=== PATIENT | male | born 1960 | race Hispanic/Latino ===

== ENCOUNTER 2017-08-08 16:45 | Inpatient (IN) | payer BC, OTHER ==
[2017-08-08 17:01] VITALS: BMI 23.4
--- NOTE | 2017-08-08 19:28 | C.PDOC ---
History Of Present Illness Patient is a 56 y/o male who presents to the ED with a complaint of nose pain s/ p falling and hitting face on pavement. Patient reports to have been on the way to medical center for swelling at his right mandibular angle mass; subsequently called an Uber when it took off without him fully inside of the vehicle. Upon the car abruptly stopping, patient fell and hit face. Patient denies any LOC, and reports remembering entire event. Patient is awake, alert, and oriented in ED. No other physical complaints at this time. Time Seen by Provider: 08/08/17 18:10 Chief Complaint (Nursing): Medical Clearance History Per: Patient History/Exam Limitations: no limitations Onset/Duration Of Symptoms: Mins Current Symptoms Are (Timing): Still Present Severity: Moderate Pain Scale Rating Of: 4 Recent travel outside of the [place]: No Past Medical History Reviewed: Historical Data, Nursing Documentation, Vital Signs Vital Signs: Last Vital Signs Temp 99.2 F 08/08/17 20:50 Pulse 118 H 08/08/17 20:50 Resp 16 08/08/17 20:50 BP 122/74 08/08/17 20:50 Pulse Ox 98 08/08/17 22:06 - Medical History PMH: No Chronic Diseases Surgical History: No Surg Hx Family History: States: No Known Family Hx - Social History Hx Tobacco Use: Yes (light smoker) Hx Alcohol Use: Yes Hx Substance Use: No - Immunization History Hx Tetanus Toxoid Vaccination: No Hx Influenza Vaccination: No Hx Pneumococcal Vaccination: No Review Of Systems Constitutional: Negative for: Fever, Chills Eyes: Positive for: Other (jaundiced sclera) ENT: Positive for: Nose Pain, Other (swelling at right mandibular angle mass) Cardiovascular: Negative for: Chest Pain Respiratory: Negative for: Shortness of Breath Gastrointestinal: Negative for: Abdominal Pain Genitourinary: Negative for: Dysuria Musculoskeletal: Negative for: Back Pain Skin: Positive for: Jaundice Neurological: Positive for: Other (denies LOC). Negative for: Weakness Psych: Negative for: Anxiety Physical Exam - Physical Exam Appears: Well, Non-toxic, No Acute Distress Skin: Warm, Dry, Jaundice Head: Normacephalic Eye(s): bilateral: Scleral Icterus Ear(s): Bilateral: Normal Nose: No Septal Hematoma, Other (some swelling over nasal bones with small abrasians) Oral Mucosa: Moist Lips: Normal Appearing Throat: Other (oropharynx clear) Neck: Supple, Other (4x7 soft mass and angle of right lower jaw extending towards larynx) Chest: Symmetrical Cardiovascular: Rhythm Regular, No Murmur Respiratory: No Decreased Breath Sounds, No Rales, No Rhonchi, No Wheezing Gastrointestinal/Abdominal: Soft, No Tenderness, No Distention Back: No CVA Tenderness Extremity: Normal ROM Extremity: Bilateral: Atraumatic Pulses: Left Dorsalis Pedis: Normal, Right Dorsalis Pedis: Normal Neurological/Psych: Oriented x3, Normal Speech, Normal Cognition Gait: Steady ED Course And Treatment - Laboratory Results Result Diagrams: 08/08/17 20:08 08/08/17 20:08 O2 Sat by Pulse Oximetry: 98 Pulse Ox Interpretation: Normal Progress Note: Head CT, neck CT, and blood work ordered. Adacel administered. Against Medical Advice - AMA Patient Left Against Medical Advice: The patient declines admission to the hospital and wishes to leave the Emergency Department. This action is against my medical advice. This decision was made with informed refusal. The patient was told that admission to the hospital is necessary. Explanation of the reasons why were discussed. The risks of leaving were explained to the patient and include, but are not limited to, worsening of known or currently unknown conditions, permanent disability and from undiagnosed or untreated conditions. The patient has the capacity to make this informed decision and understands my explanation of the current medical problem and risks of leaving. The patient voluntarily accepts these risks and signed an AMA form documenting our conversation. The patient was given the opportunity to ask questions and reconsider. The patient was encouraged to return to the Emergency Department at any time for further care. Disposition Counseled Patient/Family Regarding: Studies Performed, Diagnosis, Need For Followup - Disposition Disposition: AGAINST MEDICAL ADVICE Disposition Time: 19:28 Condition: FAIR Instructions: Abrasion (ED), Jaundice (ED), Alcohol Use Disorder (ED) Forms: Fl[employer] ([employer]) - Clinical Impression Clinical Impression: Fall, Nasal abrasion, Jaundice, Alcohol use disorder - Scribe Statement The provider has reviewed the documentation as recorded by the Scribe Nighat Grier All medical record entries made by the Scribe were at my direction and personally dictated by me. I have reviewed the chart and agree that the record accurately reflects my personal performance of the history, physical exam, medical decision making, and the department course for this patient. I have also personally directed, reviewed, and agree with the discharge instructions and disposition.
[2017-08-08] MEDS ORDERED: Tdap Vaccine 0.5 ml Vial (10-64 yrs) IM ONE ×2 (19:39→23:25)
[2017-08-08 20:11] LABS: BASO # 0.1 K/uL (0.0-0.2); BASO % 0.5 % (0.0-2.0); EOS % 0.2 % (0.0-4.0); HEMOGLOBIN 12.3 g/dL (12.0-18.0); LYMPH % 9.3 % (20.0-40.0); MEAN CORPUSCULAR HEMOGLOBIN 35.8 pg (27.0-31.0); MEAN CORPUSCULAR HGB CONC 35.4 g/dL (33.0-37.0); MEAN PLATELET VOLUME 7.8 fL (7.2-11.7); MONO # 0.7 K/uL (0.0-0.8); MONO % 6.5 % (0.0-10.0); NEUT # 9.3 K/uL (1.8-7.0); NEUT % 83.5 % (50.0-75.0); PLATELET COUNT 80 K/uL (130-400); RBC 3.43 Mil/uL (4.40-5.90); RED CELL DISTRIBUTION WIDTH 17.1 % (11.5-14.5); WHITE BLOOD COUNT 11.1 K/uL (4.8-10.8)
[2017-08-08 20:21] LABS: INR 1.6
[2017-08-08 20:31] LABS: ALB/GLOB RATIO 0.6 (1.0-2.1); ALBUMIN 3.6 g/dL (3.5-5.0); ALT/SGPT 85 U/L (21-72); AST/SGOT 462 U/L (17-59); BLOOD UREA NITROGEN 8 mg/dL (9-20); CALCIUM 8.2 mg/dl (8.6-10.4); GFR AFRICAN-AMERICAN > 60; GFR NON-AFRICAN AMERICAN > 60
[2017-08-08] MEDS ORDERED: Iodixanol 320 MG/ML 100 ML BOTTLE IV ONE (21:10)
--- NOTE | 2017-08-08 22:18 | CT ---
EXAM: CT Head Without Intravenous Contrast EXAM DATE/TIME: 08/08/2017 7:40 PM CLINICAL HISTORY: 56 years old, male; Injury or trauma; Fall; Initial encounter; Abrasion; Face; Additional info: R/O bleed TECHNIQUE: Axial computed tomography images of the head/brain without intravenous contrast. All CT scans at this facility use one or more dose reduction techniques, viz.: automated exposure control; ma/kV adjustment per patient size (including targeted exams where dose is matched to indication; i.e. head); or iterative reconstruction technique. COMPARISON: No relevant prior studies available. FINDINGS: Atrophy. Incidentally noted is septum cavum pellucidum. There is decreased attenuation in the periventricular white matter consistent with chronic small vessel ischemic disease. No intracranial hemorrhage. No extra axial collections. No intracranial edema. No fluid in the sinuses or mastoid air cells. No depressed fractures. IMPRESSION: No acute intracranial injury.
[2017-08-08] MEDS ORDERED: Bacitracin 500 Units/gm Oint Foilpak UD ONE (22:19)
--- NOTE | 2017-08-08 22:39 | CT ---
EXAM: CT Neck With Intravenous Contrast EXAM DATE/TIME: 08/08/2017 7:39 PM CLINICAL HISTORY: 56 years old, male; Signs and symptoms; Mass, lump, or swelling in neck; Additional info: R mandibular, neck mass TECHNIQUE: Axial computed tomography images of the neck with intravenous contrast. All CT scans at this facility use one or more dose reduction techniques, viz.: automated exposure control; ma/kV adjustment per patient size (including targeted exams where dose is matched to indication; i.e. head); or iterative reconstruction technique. Coronal and sagittal reformatted images were created and reviewed. CONTRAST: 100 mL of [id number] administered intravenously. COMPARISON: No relevant prior studies available. FINDINGS: There is asymmetry of the parotid glands being more prominent on the right. The enlargement may be due to acute infectious/inflammatory process/parotidtitis although I would expect more stranding in the surrounding fat with an inflammatory process that would produce this degree of asymmetry. Thus followup is recommended to ensure resolution. There is no definite parotid mass identified although portions of the gland are obscured by artifact from the patient's dental hardware. Stranding within the subcutaneous fat of the right submandibular region with slight thickening of the adjacent fascia. Findings suggest infectious/inflammatory process/cellulitis.. The stranding abuts the right submandibular gland suggesting possible mild involvement of the gland as well although there is no definite enlargement or heterogeneity identified. The airway is patent. The sinuses and mastoid air cells are clear. The visualized portions of the upper lungs are clear. Calcification at the carotid artery bifurcations bilaterally. Degenerative changes with osteophyte formation and articular facet joint hypertrophy. IMPRESSION: Cellulitis in the right submandibular region. Enlargement of the right parotid gland with respect to the left most likely due to parotiditis however please see discussion above. The enlargement is out of proportion to the surrounding inflammation and portions of the gland are obscured by artifact followup, thus followup is recommended to ensure resolution.
[2017-08-08 23:25] LABS: PLATELET ESTIMATE NORMAL (NORMAL)
[2017-08-08 23:27] LABS: BANDS 5 % (0-2); LYMPHOCYTE 10 % (20-40); MONOCYTE 7 % (0-10); NEUTROPHIL 78 % (50-75); TOTAL CELLS COUNTED 100
[2017-08-08 23:28] LABS: ANISOCYTOSIS SLIGHT; HYPERSEGMENTATION PRESENT; LARGE PLATELETS PRESENT; POIKILOCYTOSIS SLIGHT
[2017-08-09 03:17] LABS: HEPATITIS B SURFACE AG Negative (NEGATIVE)
[2017-08-09 03:23] LABS: HEPATITIS A IGM NEGATIVE (NEGATIVE); HEPATITIS B CORE AB NEGATIVE (NEGATIVE)
[2017-08-09 03:35] LABS: HEPATITIS C ANTIBODY NEGATIVE (NEGATIVE)
[2017-08-09] MEDS ORDERED: Iodixanol 320 MG/ML 100 ML BOTTLE IV ONE (07:47)
[2017-08-09] MEDS: Pantoprazole 40 mg EC Tab PO SCH (09:14)
[2017-08-09] MEDS ORDERED: Pantoprazole 40 mg EC Tab PO ONE (09:14)
--- NOTE | 2017-08-09 09:26 | CT ---
CT abdomen and pelvis with IV contrast Indication: Jaundice Technique: Contiguous axial images of the abdomen and pelvis. Coronal and Sagittal reformats generated and reviewed. Contrast: Oral contrast was not administered. 100 mL of Visipaque IV was administered. This CT exam was performed using 1 or more of the following dose reduction techniques: Automated exposure control, adjustment of the MAA and/or kV according to patient size, and/or use of iterative reconstruction technique. Radiation dose: Total exam DLP = 542.14 MGy-cm. Comparison: None available. Findings: Small bilateral pleural effusions. No visible pneumothorax. Nodular hepatic contour. Heterogeneous hepatic parenchyma. Fatty atrophy of the pancreas. Distended gallbladder. Question small sludge or gallstones at the dependent portion of the gallbladder (series 3, image 71). The kidneys enhance symmetrically. No hydronephrosis or obstructing calculus identified. The adrenal glands appear unremarkable. The spleen appears unremarkable. Splenic varices. Small to moderate abdominal and pelvic ascites. The stomach is nondistended. The bowel loops appear within normal limits of caliber without evidence of intestinal obstruction. There is no definite free air. IV contrast within the urinary bladder which appears otherwise unremarkable. Small fluid within a right inguinal hernia. Fat containing left inguinal hernia. Degenerative changes. Impression: Small bilateral pleural effusions. Nodular hepatic contour. Markedly heterogeneous hepatic parenchyma. Splenic varices. Appearance compatible with cirrhosis. Distended gallbladder. Question small sludge or gallstones at the dependent portion of the gallbladder. Correlate clinically. Gallbladder ultrasound may be considered if indicated. Small to moderate abdominal and pelvic ascites. Small fluid within a right inguinal hernia. Fat containing left inguinal hernia. Additional findings as above.
[2017-08-09] MEDS: Sodium Chloride 0.9% 1,000 ML IV SCH ×2 (13:54→22:30)
[2017-08-09] MEDS: Piperacill/Tazo 3.375gm in Dex 3.375 GM/50 ML BAG IVPB SCH ×2 (14:03→17:41)
[2017-08-09 14:05] LABS: IRON 63 ug/dL (49-181)
[2017-08-09 14:30] LABS: % IRON SATURATION 46 (20-55); TOTAL IRON BINDING CAPACITY 138 ug/dL (250-450)
[2017-08-09] MEDS ORDERED: Pneumococcal 23-Valent Vaccine IM ONE (14:57)
--- NOTE | 2017-08-09 16:06 | CP.PCM.CON ---
<Kailey Cortés - Last Filed: 08/09/17 15:58> History of Present Illness - History of Present Illness History of Present Illness: GI Fellow PGY4 Consult Note This is a 56yM with pmhx of alcohol abuse presenting with jaundice and right jaw swelling. Pt reports his sister noticed he was turning yellow a few days ago and it was getting worse and he was having swelling in his right neck/jaw line so he decided to come to the ER. Pt reports he has never been admitted for GI bleed, jaundice, HE, ascites, only one admission 2yrs ago for alcohol intoxication. Pt drinks beer and hard liquor daily for many years, denies IVDA or hepatitis in the past. Pt's last drink was 2 days priro to ER vissit. Blood etoh level was 205 and Tbili 13. Pt denies any prior dx of cirrhosis. GI was consulted for jaundice and cirrhosis. Pt was also found to have Right submandibular cellulites. Pt's sister is his verbal POA who is also an Endo Nurse at [employer], case was discussed with her as she was present at bedside. No prior hx of EGD or colonoscopy. ROS: A 12pt ROS was negative except as above PmHx: As stated in HPI PsHx: Denies SHx: Etoh abuse, denies tobacco or drugs FHx: Denies colon ca Past Patient History - Past Medical History & Family History Past Medical History?: No - Past Social History Smoking Status: Never Smoked - MUSCULOSKELETAL/RHEUMATOLOGICAL Hx Falls: No - PSYCHIATRIC Hx Substance Use: No - SURGICAL HISTORY Hx Surgeries: No - ANESTHESIA Hx Anesthesia: No Meds Allergies/Adverse Reactions: Allergies Allergy/AdvReac Type Severity Reaction Status Date / Time No Known Allergies Allergy Verified 08/08/17 17:00 - Medications Medications: Current Medications Furosemide (Lasix) 40 mg PO DAILY [facility] Piperacillin Sod/Tazobactam Sod (Zosyn 3.375 Gm Iv Premix) 3.375 gm in 50 mls @ 100 mls/hr IVPB Q6H [facility] Stop: 08/09/17 18:59 Last Admin: 08/09/17 14:03 Dose: 100 mls/hr Sodium Chloride (Sodium Chloride 0.9%) 1,000 mls @ 100 mls/hr IV .Q10H [facility] Last Admin: 08/09/17 13:54 Dose: 100 mls/hr Piperacillin Sod/Tazobactam (Sod 3.375 gm/ Sodium Chloride) 100 mls @ 200 mls/ hr IVPB Q6H [facility] Pantoprazole Sodium (Protonix Ec Tab) 40 mg PO DAILY [facility] Last Admin: 08/09/17 09:14 Dose: 40 mg Spironolactone (Aldactone) 100 mg PO DAILY [facility] Physical Exam - Constitutional Appears: Non-toxic, No Acute Distress - Head Exam Head Exam: ATRAUMATIC, NORMAL INSPECTION, NORMOCEPHALIC - Eye Exam Eye Exam: EOMI, PERRL, Scleral icterus Pupil Exam: PERRL - ENT Exam ENT Exam: Mucous Membranes Moist, Normal Exam - Neck Exam Additional comments: right submandibular swelling - Respiratory Exam Respiratory Exam: Clear to Auscultation Bilateral, NORMAL BREATHING PATTERN - Cardiovascular Exam Cardiovascular Exam: REGULAR RHYTHM - GI/Abdominal Exam GI & Abdominal Exam: Normal Bowel Sounds, Soft. absent: Distended, Guarding, Organomegaly - Extremities Exam Extremities exam: Positive for: full ROM, normal inspection, pedal edema - Psychiatric Exam Psychiatric exam: Normal Affect, Normal Mood - Skin Skin Exam: Dry, Intact, Warm Additional comments: Jaundice Results - Vital Signs Recent Vital Signs: Last Vital Signs Temp 98.7 F 08/09/17 09:15 Pulse 82 08/09/17 09:15 Resp 18 08/09/17 09:15 BP 112/70 08/09/17 09:15 Pulse Ox 98 08/09/17 09:15 - Labs Result Diagrams: 08/08/17 20:08 08/08/17 20:08 Labs: Laboratory Results - last 24 hr 08/08/17 08/08/17 08/08/17 20:08 20:08 20:08 WBC 11.1 H RBC 3.43 L Hgb 12.3 Hct 34.6 L MCV 101.0 H MCH 35.8 H MCHC 35.4 RDW 17.1 H Plt Count 80 L MPV 7.8 Neut % (Auto) 83.5 H Lymph % (Auto) 9.3 L [place] % (Auto) 6.5 Eos % (Auto) 0.2 Baso % (Auto) 0.5 Neut # (Auto) 9.3 H Lymph # (Auto) 1.0 [place] # (Auto) 0.7 Eos # (Auto) 0.0 Baso # (Auto) 0.1 Neutrophils % (Manual) 78 H Band Neutrophils % 5 H Lymphocytes % (Manual) 10 L Monocytes % (Manual) 7 Hypersegmented Polys Present Platelet Estimate Normal Large Platelets Present Poikilocytosis (manual Slight Anisocytosis (manual) Slight PT 18.0 H INR 1.6 Sodium 135 Potassium 3.5 L Chloride 96 L Carbon Dioxide 25 Anion Gap 17 BUN 8 L Creatinine 0.7 L Est GFR ( Amer) > 60 Est GFR (Non-Af Amer) > 60 Random Glucose 113 H Calcium 8.2 L Iron TIBC % Saturation Ferritin Total Bilirubin 13.0 H AST 462 H ALT 85 H Alkaline Phosphatase 289 H Total Protein 9.3 H Albumin 3.6 Globulin 5.7 H Albumin/Globulin Ratio 0.6 L Alcohol, Quantitative Hepatitis A IgM Ab Hep Bs Antigen Hep B Core IgM Ab Hepatitis C Antibody 08/08/17 08/09/17 08/09/17 22:14 02:34 13:50 WBC RBC Hgb Hct MCV MCH MCHC RDW Plt Count MPV Neut % (Auto) Lymph % (Auto) [place] % (Auto) Eos % (Auto) Baso % (Auto) Neut # (Auto) Lymph # (Auto) [place] # (Auto) Eos # (Auto) Baso # (Auto) Neutrophils % (Manual) Band Neutrophils % Lymphocytes % (Manual) Monocytes % (Manual) Hypersegmented Polys Platelet Estimate Large Platelets Poikilocytosis (manual Anisocytosis (manual) PT INR Sodium Potassium Chloride Carbon Dioxide Anion Gap BUN Creatinine Est GFR ( Amer) Est GFR (Non-Af Amer) Random Glucose Calcium Iron 63 TIBC 138 L % Saturation 46 Ferritin Total Bilirubin AST ALT Alkaline Phosphatase Total Protein Albumin Globulin Albumin/Globulin Ratio Alcohol, Quantitative 205 H Hepatitis A IgM Ab Negative Hep Bs Antigen Negative Hep B Core IgM Ab Negative Hepatitis C Antibody Negative 08/09/17 08/09/17 13:50 13:50 WBC RBC Hgb Hct MCV MCH MCHC RDW Plt Count MPV Neut % (Auto) Lymph % (Auto) [place] % (Auto) Eos % (Auto) Baso % (Auto) Neut # (Auto) Lymph # (Auto) [place] # (Auto) Eos # (Auto) Baso # (Auto) Neutrophils % (Manual) Band Neutrophils % Lymphocytes % (Manual) Monocytes % (Manual) Hypersegmented Polys Platelet Estimate Large Platelets Poikilocytosis (manual Anisocytosis (manual) PT INR Sodium Potassium Chloride Carbon Dioxide Anion Gap BUN Creatinine Est GFR ( Amer) Est GFR (Non-Af Amer) Random Glucose Calcium Iron TIBC % Saturation 46 Ferritin 2190.0 Total Bilirubin AST ALT Alkaline Phosphatase Total Protein Albumin Globulin Albumin/Globulin Ratio Alcohol, Quantitative Hepatitis A IgM Ab Hep Bs Antigen Hep B Core IgM Ab Hepatitis C Antibody Assessment & Plan - Assessment and Plan (Free Text) Assessment: This is a 56yM with hx of etoh abuse presenting for jaundice and right neck swelling. 1. Decompensated Cirrhosis with jaundice MELD 22 2. Alcoholic Hepatitis DF 39.7 3. Submandibular Cellulitis 4. Elevated LFTs 5. Pancytopenia Plan: -Continue supportive care -Cirrhosis on CT imaging, no HCC -LE edema, start lasix 40mg and aldactone 100mg -MELD 22, will call [facility] for possible transfer for alcoholic hepatitis -Will need EGD on Friday for variceal screening -Elevated LFTs due etoh, hep neg, will order autoimmune serologies for completion -Monitor and trend labs daily -Alcoholic hepatitis with elevated DF but cannot start steroids due to infection with cellulites -IVF hydration -High protein diet, low salt -Alcohol cessation -IV abx for cellulites, recommend ID c/s and surgical elevation <Michelle Plata MD - Last Filed: 08/09/17 16:40> Meds - Medications Medications: Current Medications Furosemide (Lasix) 40 mg PO DAILY [facility] Piperacillin Sod/Tazobactam Sod (Zosyn 3.375 Gm Iv Premix) 3.375 gm in 50 mls @ 100 mls/hr IVPB Q6H [facility] Stop: 08/09/17 18:59 Last Admin: 08/09/17 14:03 Dose: 100 mls/hr Sodium Chloride (Sodium Chloride 0.9%) 1,000 mls @ 100 mls/hr IV .Q10H [facility] Last Admin: 08/09/17 13:54 Dose: 100 mls/hr Piperacillin Sod/Tazobactam (Sod 3.375 gm/ Sodium Chloride) 100 mls @ 200 mls/ hr IVPB Q6H [facility] Pantoprazole Sodium (Protonix Ec Tab) 40 mg PO DAILY [facility] Last Admin: 08/09/17 09:14 Dose: 40 mg Spironolactone (Aldactone) 100 mg PO DAILY [facility] Results - Vital Signs Recent Vital Signs: Last Vital Signs Temp 98.7 F 08/09/17 09:15 Pulse 82 08/09/17 09:15 Resp 18 08/09/17 09:15 BP 112/70 08/09/17 09:15 Pulse Ox 98 08/09/17 09:15 - Labs Result Diagrams: 08/08/17 20:08 08/08/17 20:08 Labs: Laboratory Results - last 24 hr 08/08/17 08/08/17 08/08/17 20:08 20:08 20:08 WBC 11.1 H RBC 3.43 L Hgb 12.3 Hct 34.6 L MCV 101.0 H MCH 35.8 H MCHC 35.4 RDW 17.1 H Plt Count 80 L MPV 7.8 Neut % (Auto) 83.5 H Lymph % (Auto) 9.3 L [place] % (Auto) 6.5 Eos % (Auto) 0.2 Baso % (Auto) 0.5 Neut # (Auto) 9.3 H Lymph # (Auto) 1.0 [place] # (Auto) 0.7 Eos # (Auto) 0.0 Baso # (Auto) 0.1 Neutrophils % (Manual) 78 H Band Neutrophils % 5 H Lymphocytes % (Manual) 10 L Monocytes % (Manual) 7 Hypersegmented Polys Present Platelet Estimate Normal Large Platelets Present Poikilocytosis (manual Slight Anisocytosis (manual) Slight PT 18.0 H INR 1.6 Sodium 135 Potassium 3.5 L Chloride 96 L Carbon Dioxide 25 Anion Gap 17 BUN 8 L Creatinine 0.7 L Est GFR ( Amer) > 60 Est GFR (Non-Af Amer) > 60 Random Glucose 113 H Calcium 8.2 L Iron TIBC % Saturation Ferritin Total Bilirubin 13.0 H AST 462 H ALT 85 H Alkaline Phosphatase 289 H Total Protein 9.3 H Albumin 3.6 Globulin 5.7 H Albumin/Globulin Ratio 0.6 L Alcohol, Quantitative Hepatitis A IgM Ab Hep Bs Antigen Hep B Core IgM Ab Hepatitis C Antibody 08/08/17 08/09/17 08/09/17 22:14 02:34 13:50 WBC RBC Hgb Hct MCV MCH MCHC RDW Plt Count MPV Neut % (Auto) Lymph % (Auto) [place] % (Auto) Eos % (Auto) Baso % (Auto) Neut # (Auto) Lymph # (Auto) [place] # (Auto) Eos # (Auto) Baso # (Auto) Neutrophils % (Manual) Band Neutrophils % Lymphocytes % (Manual) Monocytes % (Manual) Hypersegmented Polys Platelet Estimate Large Platelets Poikilocytosis (manual Anisocytosis (manual) PT INR Sodium Potassium Chloride Carbon Dioxide Anion Gap BUN Creatinine Est GFR ( Amer) Est GFR (Non-Af Amer) Random Glucose Calcium Iron 63 TIBC 138 L % Saturation 46 Ferritin Total Bilirubin AST ALT Alkaline Phosphatase Total Protein Albumin Globulin Albumin/Globulin Ratio Alcohol, Quantitative 205 H Hepatitis A IgM Ab Negative Hep Bs Antigen Negative Hep B Core IgM Ab Negative Hepatitis C Antibody Negative 08/09/17 08/09/17 13:50 13:50 WBC RBC Hgb Hct MCV MCH MCHC RDW Plt Count MPV Neut % (Auto) Lymph % (Auto) [place] % (Auto) Eos % (Auto) Baso % (Auto) Neut # (Auto) Lymph # (Auto) [place] # (Auto) Eos # (Auto) Baso # (Auto) Neutrophils % (Manual) Band Neutrophils % Lymphocytes % (Manual) Monocytes % (Manual) Hypersegmented Polys Platelet Estimate Large Platelets Poikilocytosis (manual Anisocytosis (manual) PT INR Sodium Potassium Chloride Carbon Dioxide Anion Gap BUN Creatinine Est GFR ( Amer) Est GFR (Non-Af Amer) Random Glucose Calcium Iron TIBC % Saturation 46 Ferritin 2190.0 Total Bilirubin AST ALT Alkaline Phosphatase Total Protein Albumin Globulin Albumin/Globulin Ratio Alcohol, Quantitative Hepatitis A IgM Ab Hep Bs Antigen Hep B Core IgM Ab Hepatitis C Antibody Attending/Attestation - Attestation I have personally seen and examined this patient.: Yes I have fully participated in the care of the patient.: Yes I have reviewed all pertinent clinical information: Yes Notes (Text): 08/09/17 16:35 Patient seen earlier today. This is a 56 yr old M with history of ETOH abuse presenting for jaundice and right neck swelling in setting of acute on chronic liver disease with acute alcoholic hepatitis and alcoholic cirrhosis. Patient has been drinking daily vodka and gin for past 2 years. His current MELD is 22, with DF 0f 39.7. He denies previous hospitalization, HE, word finding difficulty, sleep wake reversal or GI bleed. He denies gum bleeding or easy bruising. Left neck swelling due to cellulitis. Plan as follows Plan: - Steroid for alcoholic hepatitis contraindicated due to left nexk cellulitis - High protein high caloric diet -Continue supportive care -Cirrhosis on CT imaging, no HCC -LE edema- start lasix 40mg and aldactone 100mg -Will need EGD on Friday for variceal screening -Hepatitis serologies are negative -Monitor and trend labs daily -Alcohol cessation reiterated - [facility] transfer will be tried -IV abx for cellulites, recommend ID and surgical evaluation
[2017-08-09] MEDS ORDERED: Influenza Vaccine 60 mcg/0.5 mL SYR (4YR UP) IM ONE (18:00)
--- NOTE | 2017-08-09 18:10 | CP.PCM.HP ---
History of Present Illness - History of Present Illness History of Present Illness: 56 YEARS OLD W/M WITH NO MEDICAL F/U ADMITTED HER SISTER WHOSE IS RN IN NOTICED YELLOW EYSE AND R. PAROTID SWELLING . NO N/V BLACK STOOLS . FATIGUE AND TIRED IN ER , BILIRUBIN WAS 13 WITH MILD LFT ELEVATION R. PAROTID GLAND SWOLLEN WITH CELLULITIS PT ADMITTED FOR FURTHER TREATMENT Present on Admission - Present on Admission Any Indicators Present on Admission: No Review of Systems - Constitutional Constitutional: absent: As Per HPI, Anorexia, Chills, Daytime Sleepiness, Excessive Sweating, Fatigue, Fever, Frequent Falls, Headache, Increased Appetite , Lethargy, Malaise, Night Sweats, Snoring, Sleep Apnea, Weight Gain, Weight Loss, Weakness, Other - EENT Eyes: absent: As Per HPI, Blind Spots, Blurred Vision, Change in Vision, Decreased Night Vision, Diplopia, Discharge, Dry Eye, Exophthalmos, Floaters, Irritation, Itchy Eyes, Loss of Peripheral Vision, Pain, Photophobia, Requires Corrective Lenses, Sees Flashes, Spots in Vision, Tunnel Vision, Other Visual Disturbances, Loss of Vision, Other Ears: absent: As Per HPI, Decreased Hearing, Ear Discharge, Ear Pain, Tinnitus, Abnormal Hearing, Disequilibrium, Dizziness, Other Nose/Mouth/Throat: absent: As Per HPI, Epistaxis, Nasal Congestion, Nasal Discharge, Nasal Obstruction, Nasal Trauma, Nose Pain, Post Nasal Drip, Sinus Pain, Sinus Pressure, Bleeding Gums, Change in Voice, Dental Pain, Dry Mouth, Dysphagia, Halitosis, Hoarsness, Lip Swelling, Mouth Lesions, Mouth Pain, Odynophagia, Sore Throat, Throat Swelling, Tongue Swelling, Facial Pain, Neck Pain, Neck Mass, Other - Cardiovascular Cardiovascular: absent: As Per HPI, Acrocyanosis, Chest Pain, Chest Pain at Rest , Chest Pain with Activity, Claudication, Diaphoresis, Dyspnea, Dyspnea on Exertion, Edema, Irregular Heart Rhythm, Pain Radiating to Arm/Neck/Jaw, Leg Edema, Leg Ulcers, Lightheadedness, Orthopnea, Palpitations, Paroxysmal Nocturnal Dyspnea, Pedal Edema, Radiating Pain, Rapid Heart Rate, Slow Heart Rate, Syncope, Other - Gastrointestinal Gastrointestinal: absent: As Per HPI, Abdominal Pain, Belching, Bloating, Change in Bowel Habits, Change in Stool Character, Coffee Ground Emesis, Constipation, Cramping, Diarrhea, Dyspepsia, Dysphagia, Early Satiety, Excessive Flatus, Fecal Incontinence, Heartburn, Hematemesis, Hematochezia, Loose Stools, Melena, Nausea, Odynophagia, Temesmus, Vomiting, Other - Musculoskeletal Musculoskeletal: absent: As Per HPI, Abnormal Gait, Arthralgias, Atrophy, Back Pain, Deformity, Joint Swelling, Limited Range of Motion, Loss of Height, Muscle Cramps, Muscle Weakness, Myalgias, Neck Pain, Numbness, Radiating Pain into Limb, Stiffness, Tingling, Other - Neurological Neurological: absent: As Per HPI, Abnormal Gait, Abnormal Hearing, Abnormal Movements, Abnormal Speech, Behavioral Changes, Burning Sensations, Confusion, Convulsions, Disequilibrium, Dizziness, Numbness, Focal Weakness, Frequent Falls , Headaches, Lack of Coordination, Loss of Vision, Memory Loss, Paresthesias, Radicular Pain, Restless Legs, Sensory Deficit, Syncope, Tingling, Tremor, Vertigo, Weakness, Other Visual Disturbances, Other - Endocrine Endocrine: absent: As Per HPI, Change in Body Appearance, Change in Libido, Cold Intolorance, Deepening of Voice, Excessive Sweating, Fatigue, Flushing, Heat Intolorance, Increase in Ring/Shoe/Hat Size, Palpitations, Polydipsia, Polyphagia, Polyuria, Other Past Patient History - Past Medical History & Family History Past Medical History?: No - Past Social History Smoking Status: Never Smoked - MUSCULOSKELETAL/RHEUMATOLOGICAL Hx Falls: No - PSYCHIATRIC Hx Substance Use: No - SURGICAL HISTORY Hx Surgeries: No - ANESTHESIA Hx Anesthesia: No Meds Allergies/Adverse Reactions: Allergies Allergy/AdvReac Type Severity Reaction Status Date / Time No Known Allergies Allergy Verified 08/08/17 17:00 Physical Exam - Constitutional Appears: Well - Head Exam Head Exam: ATRAUMATIC, NORMAL INSPECTION, NORMOCEPHALIC - Eye Exam Eye Exam: Scleral icterus Pupil Exam: NORMAL ACCOMODATION, PERRL - ENT Exam Additional comments: BOTH PAROTIDS ARE SWOLLEN . R. IS LARGER AND TENDER TO TOUCH - Neck Exam Neck exam: Positive for: Full Rom - Respiratory Exam Respiratory Exam: Clear to Auscultation Bilateral, NORMAL BREATHING PATTERN - Cardiovascular Exam Cardiovascular Exam: REGULAR RHYTHM - GI/Abdominal Exam GI & Abdominal Exam: Normal Bowel Sounds, Soft. absent: Tenderness - Back Exam Back exam: NORMAL INSPECTION. absent: CVA tenderness (L), CVA tenderness (R) - Neurological Exam Neurological exam: Alert, CN II-XII Intact, Normal Gait, Oriented x3, Reflexes Normal Additional comments: NO FLAPS Results - Vital Signs Recent Vital Signs: Last Vital Signs Temp 98.2 F 08/09/17 10:50 Pulse 80 08/09/17 10:50 Resp 18 08/09/17 10:50 BP 112/65 08/09/17 17:41 Pulse Ox 99 08/09/17 10:50 - Labs Result Diagrams: 08/10/17 08:18 08/10/17 08:18 Labs: Laboratory Results - last 24 hr 08/08/17 08/08/17 08/08/17 20:08 20:08 20:08 WBC 11.1 H RBC 3.43 L Hgb 12.3 Hct 34.6 L MCV 101.0 H MCH 35.8 H MCHC 35.4 RDW 17.1 H Plt Count 80 L MPV 7.8 Neut % (Auto) 83.5 H Lymph % (Auto) 9.3 L [place] % (Auto) 6.5 Eos % (Auto) 0.2 Baso % (Auto) 0.5 Neut # (Auto) 9.3 H Lymph # (Auto) 1.0 [place] # (Auto) 0.7 Eos # (Auto) 0.0 Baso # (Auto) 0.1 Neutrophils % (Manual) 78 H Band Neutrophils % 5 H Lymphocytes % (Manual) 10 L Monocytes % (Manual) 7 Hypersegmented Polys Present Platelet Estimate Normal Large Platelets Present Poikilocytosis (manual Slight Anisocytosis (manual) Slight PT 18.0 H INR 1.6 Sodium 135 Potassium 3.5 L Chloride 96 L Carbon Dioxide 25 Anion Gap 17 BUN 8 L Creatinine 0.7 L Est GFR ( Amer) > 60 Est GFR (Non-Af Amer) > 60 Random Glucose 113 H Calcium 8.2 L Iron TIBC % Saturation Ferritin Total Bilirubin 13.0 H AST 462 H ALT 85 H Alkaline Phosphatase 289 H Total Protein 9.3 H Albumin 3.6 Globulin 5.7 H Albumin/Globulin Ratio 0.6 L Alcohol, Quantitative Hepatitis A IgM Ab Hep Bs Antigen Hep B Core IgM Ab Hepatitis C Antibody 08/08/17 08/09/17 08/09/17 22:14 02:34 13:50 WBC RBC Hgb Hct MCV MCH MCHC RDW Plt Count MPV Neut % (Auto) Lymph % (Auto) [place] % (Auto) Eos % (Auto) Baso % (Auto) Neut # (Auto) Lymph # (Auto) [place] # (Auto) Eos # (Auto) Baso # (Auto) Neutrophils % (Manual) Band Neutrophils % Lymphocytes % (Manual) Monocytes % (Manual) Hypersegmented Polys Platelet Estimate Large Platelets Poikilocytosis (manual Anisocytosis (manual) PT INR Sodium Potassium Chloride Carbon Dioxide Anion Gap BUN Creatinine Est GFR ( Amer) Est GFR (Non-Af Amer) Random Glucose Calcium Iron 63 TIBC 138 L % Saturation 46 Ferritin Total Bilirubin AST ALT Alkaline Phosphatase Total Protein Albumin Globulin Albumin/Globulin Ratio Alcohol, Quantitative 205 H Hepatitis A IgM Ab Negative Hep Bs Antigen Negative Hep B Core IgM Ab Negative Hepatitis C Antibody Negative 08/09/17 08/09/17 13:50 13:50 WBC RBC Hgb Hct MCV MCH MCHC RDW Plt Count MPV Neut % (Auto) Lymph % (Auto) [place] % (Auto) Eos % (Auto) Baso % (Auto) Neut # (Auto) Lymph # (Auto) [place] # (Auto) Eos # (Auto) Baso # (Auto) Neutrophils % (Manual) Band Neutrophils % Lymphocytes % (Manual) Monocytes % (Manual) Hypersegmented Polys Platelet Estimate Large Platelets Poikilocytosis (manual Anisocytosis (manual) PT INR Sodium Potassium Chloride Carbon Dioxide Anion Gap BUN Creatinine Est GFR ( Amer) Est GFR (Non-Af Amer) Random Glucose Calcium Iron TIBC % Saturation 46 Ferritin 2190.0 Total Bilirubin AST ALT Alkaline Phosphatase Total Protein Albumin Globulin Albumin/Globulin Ratio Alcohol, Quantitative Hepatitis A IgM Ab Hep Bs Antigen Hep B Core IgM Ab Hepatitis C Antibody Assessment & Plan (1) Jaundice Status: Acute (2) Parotitis, acute Status: Acute Comment: ID EVAL. IV AB (3) Alcohol use disorder Status: Acute Comment: SUPPORTIVE TREATMENT. GI EVAL FOR EGD
[2017-08-09] MEDS ORDERED: Potassium Chloride 20 mEq ER Tab PO STA (18:14)
--- NOTE | 2017-08-09 18:42 | CP.PCM.CON ---
History of Present Illness - History of Present Illness History of Present Illness: INFECTIOUS DISEASE CONSULT; HPI; 56-YEAR-OLD MALE WITH HISTORY OF ALCOHOL ABUSE WHO PRESENTED WITH JAUNDICE AND RIGHT JAW SWELLING. pATIENT STATES HIS SISTER NOTICED THAT HE WAS TURNING YELLOW A FEW DAYS AGO AND IT WAS GETTING WORSE AND SHE ALSO NOTICED SWELLING OF HIS RIGHT NECK/JAW LINE SO HE DECIDED TO COME TO THE ER. PATIENT DENIES ANY FEVER OR CHILLS BUT ADMITS TO DRINKING BEER AND HARD LIQUOR DAILY FOR MANY YEARS. iN THE er PATIENT WAS FOUND TO HAVE ALCOHOL LEVEL OF 205 WITH BILIRUBIN OFF 13.0. pATIENT DENIES ANY PREVIOUS HISTORY OF HEPATITIS OR BEING DIAGNOSED WITH CIRRHOSIS.DENIES ANY HISTORY OF GI BLEEDING pATIENT HAD A CT OF THE NECK WHICH SHOWED CELLULITIS RIGHT SUBMANDIBULAR REGION WITH ENLARGEMENT OF RIGHT PAROTID GLAND WITH RESPECT TO LEFT SECONDARY TO PAROTITIS.THE AIRWAY WAS PATENT. INFECTIOUS DISEASE CONSULTATION THEREFORE REQUESTED BY PMD FOR BILATERAL PAROTITIS AND CELLULITIS RIGHT SUBMANDIBULAR REGION. PATIENT DENIES ANY DIFFICULTY BREATHING OR SWALLOWING. DENIES ANY SORE THROAT OR EAR PAIN. PmHx: As stated in HPI PsHx: Denies SHx: Etoh abuse, denies tobacco or drugs FHx: Denies colon ca Review Of Systems Constitutional: Negative for: Fever, Chills Eyes: Positive for: Other (jaundiced sclera) ENT: Positive for: Nose Pain, Other (swelling at right mandibular angle mass) Cardiovascular: Negative for: Chest Pain Respiratory: Negative for: Shortness of Breath Gastrointestinal: Negative for: Abdominal Pain Genitourinary: Negative for: Dysuria Musculoskeletal: Negative for: Back Pain Skin: Positive for: Jaundice Neurological: Positive for: Other (denies LOC). Negative for: Weakness Psych: Negative for: Anxiety Past Patient History - Past Medical History & Family History Past Medical History?: No - Past Social History Smoking Status: Never Smoked - MUSCULOSKELETAL/RHEUMATOLOGICAL Hx Falls: No - PSYCHIATRIC Hx Substance Use: No - SURGICAL HISTORY Hx Surgeries: No - ANESTHESIA Hx Anesthesia: No Meds Allergies/Adverse Reactions: Allergies Allergy/AdvReac Type Severity Reaction Status Date / Time No Known Allergies Allergy Verified 08/08/17 17:00 - Medications Medications: Current Medications Furosemide (Lasix) 40 mg PO DAILY [facility] Last Admin: 08/09/17 17:41 Dose: 40 mg Piperacillin Sod/Tazobactam Sod (Zosyn 3.375 Gm Iv Premix) 3.375 gm in 50 mls @ 100 mls/hr IVPB Q6H [facility] Stop: 08/09/17 18:59 Last Admin: 08/09/17 17:41 Dose: 100 mls/hr Sodium Chloride (Sodium Chloride 0.9%) 1,000 mls @ 100 mls/hr IV .Q10H [facility] Last Admin: 08/09/17 13:54 Dose: 100 mls/hr Piperacillin Sod/Tazobactam (Sod 3.375 gm/ Sodium Chloride) 100 mls @ 200 mls/ hr IVPB Q6H [facility] Pantoprazole Sodium (Protonix Ec Tab) 40 mg PO DAILY [facility] Last Admin: 08/09/17 09:14 Dose: 40 mg Spironolactone (Aldactone) 100 mg PO DAILY [facility] Last Admin: 08/09/17 17:48 Dose: 100 mg Physical Exam - Constitutional Appears: No Acute Distress - Head Exam Head Exam: NORMAL INSPECTION Additional comments: NASAL ABRASION NOTED. - Eye Exam Eye Exam: EOMI, PERRL, Scleral icterus - ENT Exam ENT Exam: Normal Oropharynx Additional comments: BILATERAL PAROTID SWELLING RIGHT MORE PROMINENT THAN THE LEFT. NO TENDERNESS OVER THE PAROTID GLAND. SUBMANDIBULAR LYMPHADENOPATH RIGHT SIDE. - Neck Exam Neck exam: Positive for: Lymphadenopathy, Normal Inspection. Negative for: Thyromegaly - Respiratory Exam Respiratory Exam: Clear to Auscultation Bilateral - Cardiovascular Exam Cardiovascular Exam: REGULAR RHYTHM, +S1, +S2 - GI/Abdominal Exam GI & Abdominal Exam: Normal Bowel Sounds, Organomegaly (HEPATOMEGALY), Soft. absent: Tenderness - Extremities Exam Extremities exam: Positive for: pedal pulses present. Negative for: calf tenderness, pedal edema - Neurological Exam Neurological exam: Alert, CN II-XII Intact, Oriented x3, Reflexes Normal - Skin Skin Exam: Normal Color, Warm Results - Vital Signs Recent Vital Signs: Last Vital Signs Temp 98 F 08/09/17 16:00 Pulse 105 H 08/09/17 16:00 Resp 20 08/09/17 16:00 BP 112/65 08/09/17 17:41 Pulse Ox 100 08/09/17 16:00 - Labs Result Diagrams: 08/08/17 20:08 08/08/17 20:08 Labs: Laboratory Results - last 24 hr 02/09/18 02/09/18 02/09/18 20:08 20:08 20:08 WBC 11.1 H RBC 3.43 L Hgb 12.3 Hct 34.6 L MCV 101.0 H MCH 35.8 H MCHC 35.4 RDW 17.1 H Plt Count 80 L MPV 7.8 Neut % (Auto) 83.5 H Lymph % (Auto) 9.3 L [place] % (Auto) 6.5 Eos % (Auto) 0.2 Baso % (Auto) 0.5 Neut # (Auto) 9.3 H Lymph # (Auto) 1.0 [place] # (Auto) 0.7 Eos # (Auto) 0.0 Baso # (Auto) 0.1 Neutrophils % (Manual) 78 H Band Neutrophils % 5 H Lymphocytes % (Manual) 10 L Monocytes % (Manual) 7 Hypersegmented Polys Present Platelet Estimate Normal Large Platelets Present Poikilocytosis (manual Slight Anisocytosis (manual) Slight PT 18.0 H INR 1.6 Sodium 135 Potassium 3.5 L Chloride 96 L Carbon Dioxide 25 Anion Gap 17 BUN 8 L Creatinine 0.7 L Est GFR ( Amer) > 60 Est GFR (Non-Af Amer) > 60 Random Glucose 113 H Calcium 8.2 L Iron TIBC % Saturation Ferritin Total Bilirubin 13.0 H AST 462 H ALT 85 H Alkaline Phosphatase 289 H Total Protein 9.3 H Albumin 3.6 Globulin 5.7 H Albumin/Globulin Ratio 0.6 L Alcohol, Quantitative Hepatitis A IgM Ab Hep Bs Antigen Hep B Core IgM Ab Hepatitis C Antibody 08/08/17 08/09/17 08/09/17 22:14 02:34 13:50 WBC RBC Hgb Hct MCV MCH MCHC RDW Plt Count MPV Neut % (Auto) Lymph % (Auto) [place] % (Auto) Eos % (Auto) Baso % (Auto) Neut # (Auto) Lymph # (Auto) [place] # (Auto) Eos # (Auto) Baso # (Auto) Neutrophils % (Manual) Band Neutrophils % Lymphocytes % (Manual) Monocytes % (Manual) Hypersegmented Polys Platelet Estimate Large Platelets Poikilocytosis (manual Anisocytosis (manual) PT INR Sodium Potassium Chloride Carbon Dioxide Anion Gap BUN Creatinine Est GFR ( Amer) Est GFR (Non-Af Amer) Random Glucose Calcium Iron 63 TIBC 138 L % Saturation 46 Ferritin Total Bilirubin AST ALT Alkaline Phosphatase Total Protein Albumin Globulin Albumin/Globulin Ratio Alcohol, Quantitative 205 H Hepatitis A IgM Ab Negative Hep Bs Antigen Negative Hep B Core IgM Ab Negative Hepatitis C Antibody Negative 08/09/17 08/09/17 13:50 13:50 WBC RBC Hgb Hct MCV MCH MCHC RDW Plt Count MPV Neut % (Auto) Lymph % (Auto) [place] % (Auto) Eos % (Auto) Baso % (Auto) Neut # (Auto) Lymph # (Auto) [place] # (Auto) Eos # (Auto) Baso # (Auto) Neutrophils % (Manual) Band Neutrophils % Lymphocytes % (Manual) Monocytes % (Manual) Hypersegmented Polys Platelet Estimate Large Platelets Poikilocytosis (manual Anisocytosis (manual) PT INR Sodium Potassium Chloride Carbon Dioxide Anion Gap BUN Creatinine Est GFR ( Amer) Est GFR (Non-Af Amer) Random Glucose Calcium Iron TIBC % Saturation 46 Ferritin 2190.0 Total Bilirubin AST ALT Alkaline Phosphatase Total Protein Albumin Globulin Albumin/Globulin Ratio Alcohol, Quantitative Hepatitis A IgM Ab Hep Bs Antigen Hep B Core IgM Ab Hepatitis C Antibody - Imaging and Cardiology CT scan NECK Status: Report reviewed by me Assessment & Plan (1) Parotitis, acute Assessment and Plan: patient has cellulitis right submandibular region and bilateral parotid swelling. Etiology most likely alcohol vs sialadenosis. r/o viral coxsackie viruses/influenza A/B, HIV,CHRONIC HEPATITIS C, SJOGREN SYNDROME. START iv mERREM 500 KELLI 8 HOURLY FOR BROAD [employer] BACT[employer] COVERAGE. 08/09/17 ADD iv VANCOMYCIN 1 G EVERY 12 HOURS FOR MRSA/STAPH AND STREP COVERAGE.08/09/17 CONSIDER ENT EVALUATION PROGRESSION OF PAROTID SPACE INFECTION WITH ACUTE SUPPURATIVE PAROTITIS CAN SPREAD RAPIDLY AND CAUSING AIRWAY OBSTRUCTION. NO PUS WAS SEEN AT THE STENSEN DUCT IN THE MOUTH. ,, Status: Acute (2) Jaundice Assessment and Plan: PT HAS ALCOHOLIC HEPATITIS. GI W/U IN PROGRESS. Status: Acute (3) Alcohol intoxication Assessment and Plan: ALCOHOL LEVEL ON ADMISSION 2O5. PER GI. Status: Acute (4) Nasal abrasion Status: Acute (5) Fall Status: Acute
[2017-08-09] MEDS: Vancomycin 1 gm/NS 200 ml 1 GM/200 ML BAG IVPB SCH (20:23)
[2017-08-09] MEDS: Meropenem 500 MG in Sodium Chloride 0.9% 100 ML IVPB SCH (22:04)
[2017-08-10] MEDS ORDERED: Piperacillin/Tazobact 3.375 GM in Sodium Chloride 0.9% 100 ML IVPB SCH (00:30)
[2017-08-10] MEDS: Meropenem 500 MG in Sodium Chloride 0.9% 100 ML IVPB SCH ×3 (05:03→22:37)
[2017-08-10] MEDS: Sodium Chloride 0.9% 1,000 ML IV SCH ×3 (05:04→18:11)
[2017-08-10] MEDS: Vancomycin 1 gm/NS 200 ml 1 GM/200 ML BAG IVPB SCH ×2 (06:39→20:00)
[2017-08-10 08:31] LABS: HEMOGLOBIN 10.9 g/dL (12.0-18.0); MEAN CELL VOLUME 101.1 fL (80.0-94.0); MEAN CORPUSCULAR HEMOGLOBIN 36.1 pg (27.0-31.0); MEAN CORPUSCULAR HGB CONC 35.7 g/dL (33.0-37.0); MEAN PLATELET VOLUME 8.7 fL (7.2-11.7); RBC 3.01 Mil/uL (4.40-5.90); RED CELL DISTRIBUTION WIDTH 16.9 % (11.5-14.5); WHITE BLOOD COUNT 7.9 K/uL (4.8-10.8)
[2017-08-10 08:37] LABS: INR 1.9; PROTHROMBIN TIME 21.8 SECONDS (9.7-12.2)
[2017-08-10 08:50] LABS: ALB/GLOB RATIO 0.6 (1.0-2.1); ALBUMIN 2.5 g/dL (3.5-5.0); ALT/SGPT 56 U/L (21-72); AST/SGOT 248 U/L (17-59); BILIRUBIN,DIRECT 9.1 mg/dL (0.0-0.4); BLOOD UREA NITROGEN 8 mg/dL (9-20); CALCIUM 7.8 mg/dl (8.6-10.4); GFR AFRICAN-AMERICAN > 60; GFR NON-AFRICAN AMERICAN > 60
--- NOTE | 2017-08-10 08:57 | CP.PCM.PN ---
<Kailey Cortés - Last Filed: 08/10/17 13:29> Subjective - Date & Time of Evaluation Date of Evaluation: 08/10/17 Time of Evaluation: 11:00 - Subjective Subjective: GI Fellow PGY4 Progress Note Pt seen and evaluated at bedside, pt doing okay with no GI complaints,no bleeding, tolerating diet. ROS: A 12pt ROS was negative except as above. Objective - Vital Signs/Intake and Output Vital Signs (last 24 hours): Temp Pulse Resp BP Pulse Ox 98.4 F 96 H 20 131/79 99 08/10/17 01:00 08/10/17 01:00 08/10/17 01:00 08/10/17 01:00 08/10/17 01:00 Intake and Output: 08/10/17 08/10/17 06:59 18:59 Intake Total 2150 Output Total 1200 Balance 950 - Medications Medications: Current Medications Furosemide (Lasix) 40 mg PO DAILY [facility] Last Admin: 08/09/17 17:41 Dose: 40 mg Sodium Chloride (Sodium Chloride 0.9%) 1,000 mls @ 100 mls/hr IV .Q10H [facility] Last Admin: 08/10/17 08:25 Dose: Not Given Meropenem 500 mg/ Sodium (Chloride) 100 mls @ 100 mls/hr IVPB Q8 [facility] Last Admin: 08/10/17 05:03 Dose: 100 mls/hr Vancomycin/Sodium Chloride (Vancomycin 1 Gm/Ns 200 Ml) 1 gm in 200 mls @ 166.6 mls/hr IVPB Q12H [facility] Last Admin: 08/10/17 06:39 Dose: 166.6 mls/hr Pantoprazole Sodium (Protonix Ec Tab) 40 mg PO DAILY [facility] Last Admin: 08/09/17 09:14 Dose: 40 mg Spironolactone (Aldactone) 100 mg PO DAILY [facility] Last Admin: 08/09/17 17:48 Dose: 100 mg - Labs Labs: 08/10/17 08:18 08/10/17 08:18 PT 18.0 SECONDS (9.7-12.2) H 08/08/17 20:08 INR 1.6 08/08/17 20:08 - Constitutional Appears: Non-toxic, No Acute Distress - Head Exam Head Exam: ATRAUMATIC, NORMAL INSPECTION, NORMOCEPHALIC - Eye Exam Eye Exam: EOMI, PERRL, Scleral icterus - ENT Exam ENT Exam: Mucous Membranes Moist - Neck Exam Neck Exam: Full ROM - Respiratory Exam Respiratory Exam: NORMAL BREATHING PATTERN - Cardiovascular Exam Cardiovascular Exam: Tachycardia - GI/Abdominal Exam GI & Abdominal Exam: Soft, Normal Bowel Sounds. absent: Distended, Guarding, Tenderness - Extremities Exam Extremities Exam: Normal Inspection, Pedal Edema - Back Exam Back Exam: NORMAL INSPECTION - Neurological Exam Neurological Exam: Alert, Awake, Oriented x3 - Psychiatric Exam Psychiatric exam: Normal Affect, Normal Mood - Skin Skin Exam: Dry, Intact, Warm Additional comments: jaundice Assessment and Plan - Assessment and Plan (Free Text) Assessment: This is a 56yM with hx of etoh abuse presenting for jaundice and right neck swelling. 1. Decompensated Cirrhosis with jaundice MELD 22-->25 2. Alcoholic Hepatitis DF 39.7-->55.8 3. Submandibular Cellulitis 4. Elevated LFTs 5. Pancytopenia Plan: -Continue supportive care -Cirrhosis on CT imaging, no HCC -LE edema, continue lasix 40mg and aldactone 100mg -MELD 25, called [facility] pt accepted for transfer for alcoholic hepatitis, pending bed availability -Will need EGD on Friday for variceal screening -NPO after midnight -Elevated LFTs due etoh, hep neg, will order autoimmune serologies for completion -Monitor and trend labs daily -Alcoholic hepatitis with elevated DF but cannot start steroids due to infection with cellulites -IVF hydration -High protein diet, low salt -Alcohol cessation -IV abx for cellulites, recommend ID c/s and surgical elevation -Will continue to follow closely <Michelle Plata MD - Last Filed: 08/10/17 16:26> Objective - Vital Signs/Intake and Output Vital Signs (last 24 hours): Temp Pulse Resp BP Pulse Ox 98.4 F 96 H 20 120/75 99 08/10/17 01:00 08/10/17 01:00 08/10/17 01:00 08/10/17 10:10 08/10/17 01:00 Intake and Output: 08/10/17 08/10/17 06:59 18:59 Intake Total 2150 Output Total 1200 Balance 950 - Medications Medications: Current Medications Furosemide (Lasix) 40 mg PO DAILY [facility] Last Admin: 08/10/17 10:10 Dose: 40 mg Sodium Chloride (Sodium Chloride 0.9%) 1,000 mls @ 100 mls/hr IV .Q10H [facility] Last Admin: 08/10/17 08:25 Dose: Not Given Meropenem 500 mg/ Sodium (Chloride) 100 mls @ 100 mls/hr IVPB Q8 [facility] Last Admin: 08/10/17 14:40 Dose: 100 mls/hr Vancomycin/Sodium Chloride (Vancomycin 1 Gm/Ns 200 Ml) 1 gm in 200 mls @ 166.6 mls/hr IVPB Q12H [facility] Last Admin: 08/10/17 06:39 Dose: 166.6 mls/hr Pantoprazole Sodium (Protonix Ec Tab) 40 mg PO DAILY [facility] Last Admin: 08/10/17 10:10 Dose: 40 mg Spironolactone (Aldactone) 100 mg PO DAILY [facility] Last Admin: 08/10/17 10:11 Dose: 100 mg - Labs Labs: 08/10/17 08:18 08/10/17 08:18 PT 21.8 SECONDS (9.7-12.2) H 08/10/17 08:26 INR 1.9 08/10/17 08:26 Attending/Attestation - Attestation I have personally seen and examined this patient.: Yes I have fully participated in the care of the patient.: Yes I have reviewed all pertinent clinical information, including history, physical exam and plan: Yes Notes (Text): 08/10/17 16:12 Patient seen earlier today. This is a 56 yr old M with history of ETOH abuse presenting for jaundice and right neck swelling in setting of acute on chronic liver disease with acute alcoholic hepatitis and alcoholic cirrhosis. Patient has been drinking daily vodka and gin for past 2 years. His current MELD is 22, with DF 0f 39.7. He denies previous hospitalization, HE, word finding difficulty, sleep wake reversal or GI bleed. He denies gum bleeding or easy bruising. On physical exam- no ascites, No HE and has B/L LE edema 1+. Right neck swelling due to cellulitis/ parotitis. ID consult noted. Pending ENT consult. Plan as follows Plan: - Steroid for alcoholic hepatitis contraindicated due to right neck cellulitis/ parotitis - High protein high caloric diet -Continue supportive care -Cirrhosis on CT imaging, no HCC -LE edema- continue lasix 40mg and aldactone 100mg - Daily MELD labs and electrolytes - replete as necessary -Will need EGD on Friday for variceal screening- will assess in am if able to open mouth fully for EGD -Hepatitis serologies are negative -Alcohol cessation reiterated - [facility] - has been accepted pending bed availability -IV abx for cellulites - No ascites on PE
[2017-08-10 09:23] LABS: HEPATITIS B SURFACE AG Negative (NEGATIVE)
[2017-08-10 09:29] LABS: HEPATITIS A IGM NEGATIVE (NEGATIVE); HEPATITIS B CORE AB NEGATIVE (NEGATIVE)
[2017-08-10 09:40] LABS: HEPATITIS C ANTIBODY NEGATIVE (NEGATIVE)
[2017-08-10] MEDS: Pantoprazole 40 mg EC Tab PO SCH (10:10)
--- NOTE | 2017-08-10 15:04 | CP.PCM.PN ---
Subjective - Date & Time of Evaluation Date of Evaluation: 08/10/17 Time of Evaluation: 15:03 - Subjective Subjective: AFEBRILE R>L PAROTID SWELLING ICTERUS NON TENSER LIVER T.BEV 9.1 LFT MILDLY ELEVATED IV AB Objective - Vital Signs/Intake and Output Vital Signs (last 24 hours): Temp Pulse Resp BP Pulse Ox 98.4 F 96 H 20 120/75 99 08/10/17 01:00 08/10/17 01:00 08/10/17 01:00 08/10/17 10:10 08/10/17 01:00 Intake and Output: 08/10/17 08/10/17 11:59 23:59 Intake Total 800 Output Total 800 Balance 0 - Medications Medications: Current Medications Furosemide (Lasix) 40 mg PO DAILY [facility] Last Admin: 08/10/17 10:10 Dose: 40 mg Sodium Chloride (Sodium Chloride 0.9%) 1,000 mls @ 100 mls/hr IV .Q10H [facility] Last Admin: 08/10/17 08:25 Dose: Not Given Meropenem 500 mg/ Sodium (Chloride) 100 mls @ 100 mls/hr IVPB Q8 [facility] Last Admin: 08/10/17 14:40 Dose: 100 mls/hr Vancomycin/Sodium Chloride (Vancomycin 1 Gm/Ns 200 Ml) 1 gm in 200 mls @ 166.6 mls/hr IVPB Q12H [facility] Last Admin: 08/10/17 06:39 Dose: 166.6 mls/hr Pantoprazole Sodium (Protonix Ec Tab) 40 mg PO DAILY [facility] Last Admin: 08/10/17 10:10 Dose: 40 mg Spironolactone (Aldactone) 100 mg PO DAILY [facility] Last Admin: 08/10/17 10:11 Dose: 100 mg - Labs Labs: 08/10/17 08:18 08/10/17 08:18 PT 21.8 SECONDS (9.7-12.2) H 08/10/17 08:26 INR 1.9 08/10/17 08:26
[2017-08-10] MEDS ORDERED: Potassium Chloride 20 mEq ER Tab PO ONE (17:15)
[2017-08-11] MEDS: Sodium Chloride 0.9% 1,000 ML IV SCH ×3 (04:30→14:21)
[2017-08-11] MEDS: Meropenem 500 MG in Sodium Chloride 0.9% 100 ML IVPB SCH ×3 (05:05→21:46)
[2017-08-11 07:33] LABS: HEMOGLOBIN 10.6 g/dL (12.0-18.0); MEAN CELL VOLUME 102.6 fL (80.0-94.0); MEAN CORPUSCULAR HEMOGLOBIN 36.1 pg (27.0-31.0); MEAN CORPUSCULAR HGB CONC 35.2 g/dL (33.0-37.0); MEAN PLATELET VOLUME 8.7 fL (7.2-11.7); RBC 2.95 Mil/uL (4.40-5.90); WHITE BLOOD COUNT 7.6 K/uL (4.8-10.8)
[2017-08-11 07:35] LABS: INR 2.2
[2017-08-11 07:44] LABS: ALB/GLOB RATIO 0.6 (1.0-2.1); ALBUMIN 2.5 g/dL (3.5-5.0); ALT/SGPT 53 U/L (21-72); AST/SGOT 183 U/L (17-59); BILIRUBIN,DIRECT 8.3 mg/dL (0.0-0.4); BLOOD UREA NITROGEN 10 mg/dL (9-20); CALCIUM 7.3 mg/dl (8.6-10.4); GFR AFRICAN-AMERICAN > 60; GFR NON-AFRICAN AMERICAN > 60
[2017-08-11] MEDS: Vancomycin 1 gm/NS 200 ml 1 GM/200 ML BAG IVPB SCH (09:00)
[2017-08-11] MEDS: Pantoprazole 40 mg EC Tab PO SCH ×2 (09:27→16:51)
[2017-08-11] MEDS ORDERED: Sodium Chloride 0.9% 1,000 ML IV ONE (12:20)
[2017-08-11] MEDS ORDERED: Propofol 10 mg/ml Inj (20 ML) ONE (12:24)
[2017-08-11] MEDS ORDERED: Midazolam 2 MG/2 ML VIAL ONE (12:24)
--- NOTE | 2017-08-11 13:06 | CP.PCM.PN ---
Subjective - Date & Time of Evaluation Date of Evaluation: 08/11/17 Time of Evaluation: 13:06 - Subjective Subjective: AFEBRILE, S/P EGD. RT PAROTID SWELLING >LEFT IMPROVING ON IV ABX. LABS REVIEWED. BILI 11.1 TRANSAMINASES IMPROVING. ALK PO4 118 IMPRVING WBC 7.6 PLT 66K LOW PT FOR POSSIBLE TRANSFER [facility] FOR MANAGEMENT OF ALCOHOLIC HEPATITIS PER GI Objective - Vital Signs/Intake and Output Vital Signs (last 24 hours): Temp Pulse Resp BP Pulse Ox 97.9 F 84 20 110/70 97 08/11/17 00:00 08/11/17 00:00 08/11/17 00:00 08/11/17 09:26 08/11/17 00:00 Intake and Output: 08/11/17 08/11/17 06:59 18:59 Intake Total 2250 Output Total 500 Balance 1750 - Medications Medications: Current Medications Furosemide (Lasix) 40 mg PO DAILY [facility] Last Admin: 08/11/17 09:26 Dose: 40 mg Sodium Chloride (Sodium Chloride 0.9%) 1,000 mls @ 100 mls/hr IV .Q10H [facility] Last Admin: 08/11/17 06:45 Dose: 100 mls/hr Meropenem 500 mg/ Sodium (Chloride) 100 mls @ 100 mls/hr IVPB Q8 [facility] Last Admin: 08/11/17 05:05 Dose: 100 mls/hr Vancomycin/Sodium Chloride (Vancomycin 1 Gm/Ns 200 Ml) 1 gm in 200 mls @ 166.6 mls/hr IVPB Q12H [facility] Last Admin: 08/11/17 09:00 Dose: 166.6 mls/hr Lactulose (Enulose) 20 gm PO HS [facility] Pantoprazole Sodium (Protonix Ec Tab) 40 mg PO BIDAC [facility] Rifaximin (Xifaxan) 550 mg PO BID [facility] Spironolactone (Aldactone) 100 mg PO DAILY [facility] Last Admin: 08/11/17 09:28 Dose: 100 mg - Labs Labs: 08/11/17 07:15 08/11/17 07:15 PT 25.0 SECONDS (9.7-12.2) H 08/11/17 07:15 INR 2.2 08/11/17 07:15 - Constitutional Appears: No Acute Distress - Eye Exam Eye Exam: EOMI, PERRL, Scleral icterus - ENT Exam ENT Exam: Normal Oropharynx - Neck Exam Neck Exam: Normal Inspection - Respiratory Exam Respiratory Exam: Clear to Ausculation Bilateral - Cardiovascular Exam Cardiovascular Exam: REGULAR RHYTHM, +S1, +S2 - GI/Abdominal Exam GI & Abdominal Exam: Soft, Normal Bowel Sounds. absent: Tenderness - Extremities Exam Extremities Exam: absent: Calf Tenderness, Pedal Edema - Neurological Exam Neurological Exam: Awake, CN II-XII Intact, Oriented x3 - Psychiatric Exam Psychiatric exam: Normal Mood - Skin Skin Exam: Normal Color, Warm Assessment and Plan (1) Parotitis, acute Assessment & Plan: patient has cellulitis right submandibular region and bilateral parotid swelling. Etiology most likely alcohol vs sialadenosis. CONTINUE iv MERREM 500 KELLI 8 HOURLY FOR BROAD [employer] C[employer]. 08/09 ON iv VANCOMYCIN 1 G EVERY 12 HOURS FOR MRSA/STAPH AND STREP COVERAGE.08/09/17. VANCO TROUGH LEVEL 7.7 LOW INCREASE iv VANCOMYCIN 1250MG EVERY 12 HOURS FOR MRSA/[employer] AND STREP COVERAGE.08/09/17. Status: Acute (2) Jaundice Assessment & Plan: IMPROVING LFTS Status: Acute (3) Alcohol intoxication Status: Acute (4) Nasal abrasion Status: Acute (5) Fall Status: Acute
--- NOTE | 2017-08-11 13:46 | CP.PCM.PN ---
Subjective - Date & Time of Evaluation Date of Evaluation: 08/11/17 Time of Evaluation: 13:44 - Subjective Subjective: S/P EGD NO ACUTE FINGINGS D/W GI, TO BE TRANSFERRED TO [facility] FOR FURTHER TREATMENT OF ACUTE ALCOHOLIC HEPATITIS , CURRENTLY NOT WELL RESPONDING Objective - Vital Signs/Intake and Output Vital Signs (last 24 hours): Temp Pulse Resp BP Pulse Ox 97.6 F 97 H 18 110/73 100 08/11/17 12:45 08/11/17 13:15 08/11/17 13:15 08/11/17 13:15 08/11/17 13:15 Intake and Output: 08/11/17 08/11/17 11:59 23:59 Intake Total 900 Balance 900 - Medications Medications: Current Medications Furosemide (Lasix) 40 mg PO DAILY [facility] Last Admin: 08/11/17 09:26 Dose: 40 mg Sodium Chloride (Sodium Chloride 0.9%) 1,000 mls @ 100 mls/hr IV .Q10H [facility] Last Admin: 08/11/17 06:45 Dose: 100 mls/hr Meropenem 500 mg/ Sodium (Chloride) 100 mls @ 100 mls/hr IVPB Q8 [facility] Last Admin: 08/11/17 05:05 Dose: 100 mls/hr Vancomycin HCl 1,250 mg/ (Sodium Chloride) 250 mls @ 166.6 mls/hr IVPB Q12H [facility] Lactulose (Enulose) 20 gm PO HS [facility] Pantoprazole Sodium (Protonix Ec Tab) 40 mg PO BIDAC [facility] Rifaximin (Xifaxan) 550 mg PO BID [facility] Spironolactone (Aldactone) 100 mg PO DAILY [facility] Last Admin: 08/11/17 09:28 Dose: 100 mg - Labs Labs: 08/11/17 07:15 08/11/17 07:15 PT 25.0 SECONDS (9.7-12.2) H 08/11/17 07:15 INR 2.2 08/11/17 07:15 Assessment and Plan (1) Jaundice Status: Acute (2) Parotitis, acute Status: Acute (3) Alcohol use disorder Status: Acute
[2017-08-11 16:31] VITALS: RESP 20
[2017-08-12] MEDS: Sodium Chloride 0.9% 1,000 ML IV SCH ×2 (01:10→09:59)
[2017-08-12] MEDS: Meropenem 500 MG in Sodium Chloride 0.9% 100 ML IVPB SCH ×3 (05:31→21:39)
--- NOTE | 2017-08-12 07:40 | CP.PCM.PN ---
<Mu Louis - Last Filed: 08/12/17 08:29> Subjective - Date & Time of Evaluation Date of Evaluation: 08/12/17 Time of Evaluation: 06:50 - Subjective Subjective: PGY5 GI Fellow Progress Note Patient seen and examined bedside this morning. The patient states he is feeling well today and has no complaints. Right side face/jaw improved per patient and he denies any fever/chills. Tolerated EGD well. No overnight issues. 12 system ROS performed and negative except where stated. Objective - Vital Signs/Intake and Output Vital Signs (last 24 hours): Temp Pulse Resp BP Pulse Ox 98.1 F 98 H 20 121/75 98 08/12/17 01:00 08/12/17 01:00 08/12/17 01:00 08/12/17 01:00 08/12/17 01:00 Intake and Output: 08/12/17 08/12/17 06:59 18:59 Intake Total 2240 Output Total 500 Balance 1740 - Medications Medications: Current Medications Furosemide (Lasix) 40 mg PO DAILY [facility] Last Admin: 08/11/17 09:26 Dose: 40 mg Sodium Chloride (Sodium Chloride 0.9%) 1,000 mls @ 100 mls/hr IV .Q10H [facility] Last Admin: 08/12/17 01:10 Dose: 100 mls/hr Meropenem 500 mg/ Sodium (Chloride) 100 mls @ 100 mls/hr IVPB Q8 [facility] Last Admin: 08/12/17 05:31 Dose: 100 mls/hr Vancomycin HCl 1,250 mg/ (Sodium Chloride) 250 mls @ 166.6 mls/hr IVPB Q12H [facility] Last Admin: 08/12/17 01:09 Dose: 166.6 mls/hr Lactulose (Enulose) 20 gm PO HS [facility] Last Admin: 08/11/17 21:50 Dose: 20 gm Lorazepam (Ativan) 0.5 mg IVP Q6H PRN PRN Reason: Anxiety Last Admin: 08/11/17 16:50 Dose: 0.5 mg Pantoprazole Sodium (Protonix Ec Tab) 40 mg PO BIDAC [facility] Last Admin: 08/11/17 16:51 Dose: 40 mg Rifaximin (Xifaxan) 550 mg PO BID [facility] Last Admin: 08/11/17 19:39 Dose: 550 mg Spironolactone (Aldactone) 100 mg PO DAILY [facility] Last Admin: 08/11/17 09:28 Dose: 100 mg - Labs Labs: 08/11/17 07:15 08/11/17 07:15 PT 25.0 SECONDS (9.7-12.2) H 08/11/17 07:15 INR 2.2 08/11/17 07:15 - Constitutional Appears: No Acute Distress, Chronically Ill - Head Exam Additional comments: right facial fullness 2/2 acute submandibular cellulitis - Eye Exam Eye Exam: EOMI, PERRL, Scleral icterus - ENT Exam ENT Exam: Mucous Membranes Dry - Respiratory Exam Respiratory Exam: Clear to Ausculation Bilateral. absent: Rales, Rhonchi, Wheezes - Cardiovascular Exam Cardiovascular Exam: RRR, +S1, +S2 - GI/Abdominal Exam GI & Abdominal Exam: Soft, Normal Bowel Sounds. absent: Distended, Firm, Guarding, Rigid, Tenderness, Organomegaly - Extremities Exam Extremities Exam: Normal Inspection. absent: Pedal Edema - Neurological Exam Neurological Exam: Alert, Awake, Oriented x3 - Psychiatric Exam Psychiatric exam: Normal Affect, Normal Mood - Skin Skin Exam: Dry, Warm Additional comments: jaundice Assessment and Plan - Assessment and Plan (Free Text) Assessment: Patient is a 56yo male with PMHx significant for EtOH abuse who presented with right facial swelling and new onset jaundice -Acute alcoholic hepatitis -Acute right submandibular cellulitis -EtOH abuse -Suspected EtOH cirrhosis with coagulopathy, suspected portal HTN/ thrombocytopenia and grade 1 HE -LA Grade C esophagitis -PUD-Duodenal ulcers Plan: -MDF 39.7 on admission -Total bilirubin uptrending, awaiting morning lab work -Cannot give steroid therapy for acute alcoholic hepatitis in the setting of right submandibular cellulitis -S/P endoscopy with LA Grade C esophagitis and PUD noted -Protonix 40mg PO BIDAC -On lactulose 20g PO QHS and Rifaximin 550mg PO BID for HE -Awaiting transfer to [facility] for ongoing advanced liver care *MELD-Na: 28 yesterday, driven by hyperbilirubinemia - pending AM CMP <Joseph Smart - Last Filed: 08/12/17 08:46> Objective - Vital Signs/Intake and Output Vital Signs (last 24 hours): Temp Pulse Resp BP Pulse Ox 98.8 F 94 H 20 107/69 99 08/12/17 08:37 08/12/17 08:37 08/12/17 08:37 08/12/17 08:37 08/12/17 08:37 Intake and Output: 08/12/17 08/12/17 06:59 18:59 Intake Total 2240 Output Total 500 Balance 1740 - Medications Medications: Current Medications Furosemide (Lasix) 40 mg PO DAILY [facility] Last Admin: 08/11/17 09:26 Dose: 40 mg Sodium Chloride (Sodium Chloride 0.9%) 1,000 mls @ 100 mls/hr IV .Q10H [facility] Last Admin: 08/12/17 01:10 Dose: 100 mls/hr Meropenem 500 mg/ Sodium (Chloride) 100 mls @ 100 mls/hr IVPB Q8 [facility] Last Admin: 08/12/17 05:31 Dose: 100 mls/hr Vancomycin HCl 1,250 mg/ (Sodium Chloride) 250 mls @ 166.6 mls/hr IVPB Q12H [facility] Last Admin: 08/12/17 01:09 Dose: 166.6 mls/hr Lactulose (Enulose) 20 gm PO HS [facility] Last Admin: 08/11/17 21:50 Dose: 20 gm Lorazepam (Ativan) 0.5 mg IVP Q6H PRN PRN Reason: Anxiety Last Admin: 08/11/17 16:50 Dose: 0.5 mg Pantoprazole Sodium (Protonix Ec Tab) 40 mg PO BIDAC [facility] Last Admin: 08/12/17 08:30 Dose: 40 mg Rifaximin (Xifaxan) 550 mg PO BID [facility] Last Admin: 08/11/17 19:39 Dose: 550 mg Spironolactone (Aldactone) 100 mg PO DAILY [facility] Last Admin: 08/11/17 09:28 Dose: 100 mg - Labs Labs: 08/12/17 07:50 08/11/17 07:15 PT 25.4 SECONDS (9.7-12.2) H 08/12/17 07:50 INR 2.2 08/12/17 07:50 Attending/Attestation - Attestation I have personally seen and examined this patient.: Yes I have fully participated in the care of the patient.: Yes I have reviewed all pertinent clinical information, including history, physical exam and plan: Yes Notes (Text): 08/12/17 08:41 I have seen and examined patient with GI fellow. No acute events overnight, he is seen sitting at bedside eating breakfast, appears comfortable. He denies abdominal pain, nausea, vomiting, fever/chills. He had one bowel movement yesterday, normal in color and consistency as per patient. Review of vitals from this morning shows tachycardia. Submandibular cellulitis ETOH abuse, acute ETOH hepatitis s/p EGD yesterday showing LA grade C erosive esophagitis - Low sodium diet as tolerated - Continue with antibiotic therapy as per ID, awaiting ENT evaluation - Continue with lactulose and xifaxan therapy for HE prevention - suspected cirrhosis given clinical scenario - LFTs stable, continue to monitor - INR stable, monitor - Awaiting transfer to [facility] for potential inclusion in trial. Patient currently not candidate for steroid therapy in acute ETOH hepatitis given infectious process. Can consider use of Trental in this situation for HRS prevention, will continue to monitor patient clinical course.
[2017-08-12 08:03] LABS: HEMOGLOBIN 10.5 g/dL (12.0-18.0); MEAN CELL VOLUME 102.5 fL (80.0-94.0); MEAN CORPUSCULAR HEMOGLOBIN 36.7 pg (27.0-31.0); MEAN CORPUSCULAR HGB CONC 35.8 g/dL (33.0-37.0); MEAN PLATELET VOLUME 8.1 fL (7.2-11.7); RBC 2.86 Mil/uL (4.40-5.90); WHITE BLOOD COUNT 7.4 K/uL (4.8-10.8)
[2017-08-12 08:07] LABS: INR 2.2; PROTHROMBIN TIME 25.4 SECONDS (9.7-12.2)
[2017-08-12] MEDS: Pantoprazole 40 mg EC Tab PO SCH ×2 (08:30→17:20)
[2017-08-12 08:48] LABS: ALB/GLOB RATIO 0.6 (1.0-2.1); ALBUMIN 2.4 g/dL (3.5-5.0); ALT/SGPT 49 U/L (21-72); AMYLASE 120 U/L (30-110); AST/SGOT 167 U/L (17-59); BLOOD UREA NITROGEN 13 mg/dL (9-20); CALCIUM 7.5 mg/dl (8.6-10.4); GFR AFRICAN-AMERICAN > 60; GFR NON-AFRICAN AMERICAN > 60; LIPASE 161 U/L (23-300)
[2017-08-12 10:31] LABS: CERULOPLASMIN 26 mg/dL (18-36)
--- NOTE | 2017-08-12 13:34 | CP.PCM.PN ---
Subjective - Date & Time of Evaluation Date of Evaluation: 08/12/17 Time of Evaluation: 13:33 - Subjective Subjective: S/P EGD NO ACUTE FINGINGS D/W GI, TO BE TRANSFERRED TO [facility] FOR FURTHER TREATMENT OF ACUTE ALCOHOLIC HEPATITIS , CURRENTLY NOT WELL RESPONDING T.BILIRUBIB REMAINS SAME PAROTID SWELLING [employer]GRESS[employer] Objective - Vital Signs/Intake and Output Vital Signs (last 24 hours): Temp Pulse Resp BP Pulse Ox 98.8 F 94 H 20 107/69 99 08/12/17 08:37 08/12/17 08:37 08/12/17 08:37 08/12/17 09:59 08/12/17 08:37 Intake and Output: 08/12/17 08/12/17 11:59 23:59 Intake Total 1040 Balance 1040 - Medications Medications: Current Medications Furosemide (Lasix) 40 mg PO DAILY [facility] Last Admin: 08/12/17 09:59 Dose: 40 mg Meropenem 500 mg/ Sodium (Chloride) 100 mls @ 100 mls/hr IVPB Q8 [facility] Last Admin: 08/12/17 05:31 Dose: 100 mls/hr Vancomycin HCl 1,250 mg/ (Sodium Chloride) 250 mls @ 166.6 mls/hr IVPB Q12H [facility] Last Admin: 08/12/17 01:09 Dose: 166.6 mls/hr Lactulose (Enulose) 20 gm PO HS [facility] Last Admin: 08/11/17 21:50 Dose: 20 gm Lorazepam (Ativan) 0.5 mg IVP Q6H PRN PRN Reason: Anxiety Last Admin: 08/11/17 16:50 Dose: 0.5 mg Pantoprazole Sodium (Protonix Ec Tab) 40 mg PO BIDAC [facility] Last Admin: 08/12/17 08:30 Dose: 40 mg Rifaximin (Xifaxan) 550 mg PO BID [facility] Last Admin: 08/12/17 09:58 Dose: 550 mg Spironolactone (Aldactone) 100 mg PO DAILY [facility] Last Admin: 08/12/17 09:59 Dose: 100 mg - Labs Labs: 08/12/17 07:50 08/12/17 07:50 PT 25.4 SECONDS (9.7-12.2) H 08/12/17 07:50 INR 2.2 08/12/17 07:50 Assessment and Plan (1) Jaundice Status: Acute (2) Parotitis, acute Status: Acute (3) Alcohol use disorder Status: Acute
[2017-08-12 18:29] LABS: % CD4 (T HELPER CELL) 71 Percent (30-61); % CD8 (SUPPRESSOR T CELL) 19 Percent (12-42); ABSOLUTE CD4 CELLS 839 Cells/mcL (490-1740); ABSOLUTE CD8 CELLS 221 Cells/mcL (180-1170); ABSOLUTE LYMPHOCYTES 1182 Cells/mcL (850-3900)
--- NOTE | 2017-08-12 21:20 | CON ---
DATE: 08/12/2017 REASON FOR CONSULTATION: Right neck cellulitis. HISTORY OF PRESENT ILLNESS: This is a 56-year-old male with multiple-day history of right neck swelling and pain. The pain was constant, [id number] in intensity on the right side. The patient was given antibiotics. The pain has resolved. The swelling has resolved. PAST MEDICAL HISTORY: As noted in the chart by me. MEDICATIONS: As noted in the chart by me. PHYSICAL EXAMINATION: HEAD: Atraumatic and normocephalic. FACE: Good facial movements bilaterally. CONSTITUTIONAL: Well fed, well nourished. COMMUNICATION: Communicates well and appropriately. EXTERNAL NOSE AND EARS: No masses. No lesions. No erythema. No edema. INTERNAL NOSE AND EARS: Deviated septum. No masses. No lesions. No erythema. No edema. ORAL CAVITY AND OROPHARYNX: No masses. No lesions. No erythema. No edema. LIPS AND GUMS: No masses. No lesions. No erythema. No edema. NECK: Supple. THYROID: No thyromegaly. No goiter. LYMPH NODES: No lymphadenopathy of the neck. ASSESSMENT: 1. Neck cellulitis, resolved. 2. Deviated septum. PLAN: Since the cellulitis has resolved, there is no ENT intervention needed at this point. James Agarwal MD
--- NOTE | 2017-08-12 23:04 | CP.PCM.PN ---
Subjective - Date & Time of Evaluation Date of Evaluation: 08/12/17 Time of Evaluation: 23:04 - Subjective Subjective: afebrile, Feeling better. Awake and alert RT PAROTID SWELLING >LEFT Parotid swelling IMPROVING ON IV ABX. LABS REVIEWED. BILI 11.9 TRANSAMINASES IMPROVING. ALK PO4 IMPROVING WBC 7.4 PLT 67K UNCHANGED. AMYLASE IMPROVING TO 120. HIV I/2 ANTIBODY NEGATIVE HEPATITIS SCREEN NEGATIVE. PT FOR POSSIBLE TRANSFER TO [facility] FOR MANAGEMENT OF ALCOHOLIC HEPATITIS PER GI Objective - Vital Signs/Intake and Output Vital Signs (last 24 hours): Temp Pulse Resp BP Pulse Ox 97.4 F L 109 H 20 120/74 97 08/12/17 16:19 08/12/17 16:19 08/12/17 16:19 08/12/17 16:19 08/12/17 16:19 Intake and Output: 08/12/17 08/13/17 18:59 06:59 Intake Total 1550 Balance 1550 - Medications Medications: Current Medications Furosemide (Lasix) 40 mg PO DAILY [facility] Last Admin: 08/12/17 09:59 Dose: 40 mg Meropenem 500 mg/ Sodium (Chloride) 100 mls @ 100 mls/hr IVPB Q8 [facility] Last Admin: 08/12/17 21:39 Dose: 100 mls/hr Vancomycin HCl 1,250 mg/ (Sodium Chloride) 250 mls @ 166.6 mls/hr IVPB Q12H [facility] Last Admin: 08/12/17 14:04 Dose: 166.6 mls/hr Lactulose (Enulose) 20 gm PO HS [facility] Last Admin: 08/12/17 21:38 Dose: 20 gm Lorazepam (Ativan) 0.5 mg IVP Q6H PRN PRN Reason: Anxiety Last Admin: 08/11/17 16:50 Dose: 0.5 mg Pantoprazole Sodium (Protonix Ec Tab) 40 mg PO BIDAC [facility] Last Admin: 08/12/17 17:20 Dose: 40 mg Rifaximin (Xifaxan) 550 mg PO BID [facility] Last Admin: 08/12/17 18:55 Dose: 550 mg Spironolactone (Aldactone) 100 mg PO DAILY [facility] Last Admin: 08/12/17 09:59 Dose: 100 mg - Labs Labs: 08/12/17 07:50 08/12/17 07:50 PT 25.4 SECONDS (9.7-12.2) H 08/12/17 07:50 INR 2.2 08/12/17 07:50 - Constitutional Appears: No Acute Distress - Head Exam Head Exam: NORMOCEPHALIC - Eye Exam Eye Exam: EOMI, PERRL. absent: Scleral icterus - ENT Exam ENT Exam: Normal Oropharynx - Neck Exam Neck Exam: Normal Inspection Additional comments: BILATERAL PAROTID GLAND SWELLING AND TENDERNESS IMPROVING. - Respiratory Exam Respiratory Exam: Clear to Ausculation Bilateral - Cardiovascular Exam Cardiovascular Exam: REGULAR RHYTHM, +S1, +S2 - GI/Abdominal Exam GI & Abdominal Exam: Soft, Normal Bowel Sounds - Extremities Exam Extremities Exam: absent: Calf Tenderness, Pedal Edema - Neurological Exam Neurological Exam: Awake, CN II-XII Intact, Oriented x3, Reflexes Normal - Psychiatric Exam Psychiatric exam: Normal Mood - Skin Skin Exam: Normal Color, Warm Assessment and Plan (1) Parotitis, acute Assessment & Plan: CONTINUE iv MERREM 500 KELLI 8 HOURLY FOR BROAD [employer] COVERAGE. 08/09 ON iv VANCOMYCIN 1 G EVERY 12 HOURS FOR MRSA/STAPH AND STREP COVERAGE.08/09/17. VANCO TROUGH LEVEL 7.7 LOW ON INCREASING DOSE OF iv VANCOMYCIN 1250MG EVERY 12 HOURS FOR MRSA/STAPH AND STREP COVERAGE.08/09/17. F/U VANCO TROUGH IN A.M.. Status: Acute (2) Jaundice Assessment & Plan: PATIENT HAS ALCOHOLIC HEPATITIS.. MONITOR lftS.. pATIENT AWAITING TRANSFER TO [facility]. Status: Acute (3) Alcohol intoxication Status: Acute (4) Nasal abrasion Status: Acute (5) Fall Status: Acute
[2017-08-13] MEDS: Meropenem 500 MG in Sodium Chloride 0.9% 100 ML IVPB SCH ×3 (05:05→21:44)
[2017-08-13] MEDS: Pantoprazole 40 mg EC Tab PO SCH ×2 (08:20→16:48)
--- NOTE | 2017-08-13 09:33 | CP.PCM.PN ---
<Mu Louis - Last Filed: 08/13/17 12:52> Subjective - Date & Time of Evaluation Date of Evaluation: 08/13/17 Time of Evaluation: 07:10 - Subjective Subjective: PGY5 GI Fellow Progress Note Patient seen and examined bedside this morning. The patient states he is feeling well and has no complaints at this time. He denies any events overnight , is tolerating diet without issue and passing stool regularly. 12 system ROS performed and negative except where stated. Objective - Vital Signs/Intake and Output Vital Signs (last 24 hours): Temp Pulse Resp BP Pulse Ox 98.2 F 92 H 20 112/69 99 08/13/17 08:00 08/13/17 08:00 08/13/17 08:00 08/13/17 09:21 08/13/17 08:00 Intake and Output: 08/13/17 08/13/17 06:59 18:59 Intake Total 1060 Balance 1060 - Medications Medications: Current Medications Furosemide (Lasix) 40 mg PO DAILY [facility] Last Admin: 08/13/17 09:21 Dose: 40 mg Meropenem 500 mg/ Sodium (Chloride) 100 mls @ 100 mls/hr IVPB Q8 [facility] Last Admin: 08/13/17 05:05 Dose: 100 mls/hr Vancomycin HCl 1,150 mg/ (Sodium Chloride) 250 mls @ 166.6 mls/hr IVPB Q12H [facility] Lactulose (Enulose) 20 gm PO HS [facility] Last Admin: 08/12/17 21:38 Dose: 20 gm Lorazepam (Ativan) 0.5 mg IVP Q6H PRN PRN Reason: Anxiety Last Admin: 08/11/17 16:50 Dose: 0.5 mg Pantoprazole Sodium (Protonix Ec Tab) 40 mg PO BIDAC [facility] Last Admin: 08/13/17 08:20 Dose: 40 mg Rifaximin (Xifaxan) 550 mg PO BID [facility] Last Admin: 08/13/17 09:21 Dose: 550 mg Spironolactone (Aldactone) 100 mg PO DAILY [facility] Last Admin: 08/13/17 09:21 Dose: 100 mg - Labs Labs: 08/12/17 07:50 08/12/17 07:50 PT 25.4 SECONDS (9.7-12.2) H 08/12/17 07:50 INR 2.2 02/13/18 07:50 - Constitutional Appears: Non-toxic, No Acute Distress - Eye Exam Eye Exam: EOMI, PERRL, Scleral icterus - ENT Exam ENT Exam: Mucous Membranes Moist - Respiratory Exam Respiratory Exam: Clear to Ausculation Bilateral. absent: Rales, Rhonchi, Wheezes - Cardiovascular Exam Cardiovascular Exam: RRR, +S1, +S2 - GI/Abdominal Exam GI & Abdominal Exam: Soft, Normal Bowel Sounds. absent: Distended, Firm, Guarding, Rigid, Tenderness, Organomegaly - Extremities Exam Extremities Exam: Normal Inspection. absent: Pedal Edema - Neurological Exam Neurological Exam: Alert, Awake, Oriented x3 - Psychiatric Exam Psychiatric exam: Normal Affect, Normal Mood - Skin Skin Exam: Dry, Warm Additional comments: jaundice Assessment and Plan - Assessment and Plan (Free Text) Assessment: Patient is a 56yo male with PMHx significant for EtOH abuse who presented with right facial swelling and new onset jaundice -Acute alcoholic hepatitis -Acute right submandibular cellulitis -EtOH abuse -Suspected EtOH cirrhosis with coagulopathy, suspected portal HTN/ thrombocytopenia and grade 1 HE -LA Grade C esophagitis -PUD-Duodenal ulcers Plan: -MDF 39.7 on admission -AM blood work pending, bilirubin uptrending -Cannot give steroid therapy for acute alcoholic hepatitis in the setting of right submandibular cellulitis -S/P endoscopy with LA Grade C esophagitis and PUD noted -Cr uptrending to 1.2 today; hold diuretics and start Albumin 25g IV Q8H -Initiate therapy with Pentoxifylline 400mg PO TID -Protonix 40mg PO BIDAC -On lactulose 20g PO QHS and Rifaximin 550mg PO BID for HE -Awaiting transfer to [facility] for ongoing advanced liver care - agreement paperwork faxed to their facility -Of note, ASMA+ 1:20 (weakly positive) *MELD-Na: pending AM CMP <Jamar Salmeron - Last Filed: 08/13/17 15:01> Objective - Vital Signs/Intake and Output Vital Signs (last 24 hours): Temp Pulse Resp BP Pulse Ox 98.2 F 92 H 20 112/69 99 08/13/17 08:00 08/13/17 08:00 08/13/17 08:00 08/13/17 09:21 08/13/17 08:00 Intake and Output: 08/13/17 08/13/17 06:59 18:59 Intake Total 1060 710 Balance 1060 710 - Medications Medications: Current Medications Meropenem 500 mg/ Sodium (Chloride) 100 mls @ 100 mls/hr IVPB Q8 [facility] Last Admin: 08/13/17 13:53 Dose: 100 mls/hr Vancomycin HCl 1,150 mg/ (Sodium Chloride) 250 mls @ 166.6 mls/hr IVPB Q12H [facility] Last Admin: 08/13/17 14:55 Dose: 166.6 mls/hr Albumin Human (Albutein 5% 500 Ml) 500 mls @ 250 mls/hr IVPB Q8H [facility] Stop: 08/15/17 09:59 Lactulose (Enulose) 20 gm PO HS [facility] Last Admin: 08/12/17 21:38 Dose: 20 gm Lorazepam (Ativan) 0.5 mg IVP Q6H PRN PRN Reason: Anxiety Last Admin: 08/11/17 16:50 Dose: 0.5 mg Pantoprazole Sodium (Protonix Ec Tab) 40 mg PO BIDAC [facility] Last Admin: 08/13/17 08:20 Dose: 40 mg Pentoxifylline (Pentoxil) 400 mg PO TID [facility] Last Admin: 08/13/17 13:53 Dose: 400 mg Rifaximin (Xifaxan) 550 mg PO BID [facility] Last Admin: 08/13/17 09:21 Dose: 550 mg - Labs Labs: 08/13/17 11:04 08/13/17 11:04 PT 24.8 SECONDS (9.7-12.2) H 08/13/17 14:00 INR 2.1 08/13/17 14:00 Attending/Attestation - Attestation I have personally seen and examined this patient.: Yes I have fully participated in the care of the patient.: Yes I have reviewed all pertinent clinical information, including history, physical exam and plan: Yes Notes (Text): 08/13/17 14:58 56 year old male with h/o EtOH abuse admitted with alcoholic hepatitis. 1. Alcoholic hepatitis 2. Peptic ulcer disease 3. Erosive esophagitis 4. Renal insufficiency Plan: -steroids contraindicated due to active infection -on pentoxyfylline now -continue PPI due to esophagitis/PUD -S/P endoscopy with LA Grade C esophagitis and PUD noted -creatinine uptrending, stop diuretics, give 5% albumin 1-1.5 liters -check UA and urine lytes -sodium restricted diet -awaiting transfer
[2017-08-13 11:14] LABS: BASO # 0.1 K/uL (0.0-0.2); EOS # 0.3 K/uL (0.0-0.7); EOS % 2.3 % (0.0-4.0); HEMOGLOBIN 11.7 g/dL (12.0-18.0); LYMPH # 1.3 K/uL (1.0-4.3); LYMPH % 11.4 % (20.0-40.0); MEAN CORPUSCULAR HEMOGLOBIN 36.2 pg (27.0-31.0); MEAN CORPUSCULAR HGB CONC 34.4 g/dL (33.0-37.0); MEAN PLATELET VOLUME 8.2 fL (7.2-11.7); MONO # 1.5 K/uL (0.0-0.8); MONO % 12.7 % (0.0-10.0); NEUT # 8.6 K/uL (1.8-7.0); NEUT % 72.6 % (50.0-75.0); RBC 3.22 Mil/uL (4.40-5.90); RED CELL DISTRIBUTION WIDTH 17.5 % (11.5-14.5)
[2017-08-13 11:23] LABS: ALT/SGPT 41 U/L (21-72); AST/SGOT 170 U/L (17-59); BLOOD UREA NITROGEN 15 mg/dL (9-20); CALCIUM 8.2 mg/dl (8.6-10.4); GFR AFRICAN-AMERICAN > 60; GFR NON-AFRICAN AMERICAN > 60
[2017-08-13 11:25] LABS: ALB/GLOB RATIO 0.6 (1.0-2.1); ALBUMIN 2.8 g/dL (3.5-5.0)
[2017-08-13 11:30] LABS: MEAN CELL VOLUME 105.2 fL (80.0-94.0); WHITE BLOOD COUNT 11.8 K/uL (4.8-10.8)
[2017-08-13] MEDS ORDERED: Albumin Human 5% (12.5 gm/250 ml) IV SCH (12:15)
--- NOTE | 2017-08-13 13:15 | CP.PCM.PN ---
Subjective - Date & Time of Evaluation Date of Evaluation: 08/13/17 Time of Evaluation: 13:15 - Subjective Subjective: S/P EGD NO ACUTE FINGINGS D/W GI, TO BE TRANSFERRED TO [facility]ARE FOR FURTHER TREATMENT OF ACUTE ALCOHOLIC HEPATITIS , CURRENTLY NOT WELL RESPONDING T.BILIRUBIB REMAINS SAME PAROTID SWELLING REGRESSING APPETITE POOR Objective - Vital Signs/Intake and Output Vital Signs (last 24 hours): Temp Pulse Resp BP Pulse Ox 98.2 F 92 H 20 112/69 99 08/13/17 08:00 08/13/17 08:00 08/13/17 08:00 08/13/17 09:21 08/13/17 08:00 Intake and Output: 08/13/17 08/13/17 11:59 23:59 Intake Total 460 Balance 460 - Medications Medications: Current Medications Meropenem 500 mg/ Sodium (Chloride) 100 mls @ 100 mls/hr IVPB Q8 [facility] Last Admin: 08/13/17 05:05 Dose: 100 mls/hr Vancomycin HCl 1,150 mg/ (Sodium Chloride) 250 mls @ 166.6 mls/hr IVPB Q12H [facility] Albumin Human (Albutein 5% 500 Ml) 500 mls @ 250 mls/hr IVPB Q8H [facility] Stop: 08/15/17 07:59 Lactulose (Enulose) 20 gm PO HS [facility] Last Admin: 08/12/17 21:38 Dose: 20 gm Lorazepam (Ativan) 0.5 mg IVP Q6H PRN PRN Reason: Anxiety Last Admin: 08/11/17 16:50 Dose: 0.5 mg Pantoprazole Sodium (Protonix Ec Tab) 40 mg PO BIDAC [facility] Last Admin: 08/13/17 08:20 Dose: 40 mg Pentoxifylline (Pentoxil) 400 mg PO TID [facility] Rifaximin (Xifaxan) 550 mg PO BID [facility] Last Admin: 08/13/17 09:21 Dose: 550 mg - Labs Labs: 08/13/17 11:04 08/13/17 11:04 PT 25.4 SECONDS (9.7-12.2) H 08/12/17 07:50 INR 2.2 08/12/17 07:50 Assessment and Plan (1) Jaundice Status: Acute (2) Parotitis, acute Status: Acute (3) Alcohol use disorder Status: Acute
[2017-08-13 14:13] LABS: INR 2.1; PROTHROMBIN TIME 24.8 SECONDS (9.7-12.2)
--- NOTE | 2017-08-13 22:24 | CP.PCM.PN ---
Subjective - Date & Time of Evaluation Date of Evaluation: 08/13/17 Time of Evaluation: 22:24 - Subjective Subjective: afebrile, Feeling better. Awake and alert INCREASING ICTERUS RT PAROTID SWELLING >LEFT Parotid swelling MUCH IMPROVED ON IV ABX. LABS NOTED. T.BILI 16.1 ?RIFAXAMIN. vANCO LEVEL NOTED vANCO DOSAGE ADJUSTED. Objective - Vital Signs/Intake and Output Vital Signs (last 24 hours): Temp Pulse Resp BP Pulse Ox 97.2 F L 99 H 20 111/71 97 08/13/17 15:00 08/13/17 15:00 08/13/17 15:00 08/13/17 15:00 08/13/17 15:00 Intake and Output: 08/13/17 08/14/17 18:59 06:59 Intake Total 710 Balance 710 - Medications Medications: Current Medications Meropenem 500 mg/ Sodium (Chloride) 100 mls @ 100 mls/hr IVPB Q8 [facility] Last Admin: 08/13/17 21:44 Dose: 100 mls/hr Vancomycin HCl 1,150 mg/ (Sodium Chloride) 250 mls @ 166.6 mls/hr IVPB Q12H [facility] Last Admin: 08/13/17 14:55 Dose: 166.6 mls/hr Albumin Human (Albutein 5% 500 Ml) 500 mls @ 250 mls/hr IVPB Q8H [facility] Stop: 08/15/17 09:59 Last Admin: 08/13/17 17:49 Dose: 250 mls/hr Ibuprofen (Motrin Tab) 400 mg PO BID [facility] Lactulose (Enulose) 20 gm PO HS [facility] Last Admin: 08/13/17 21:44 Dose: 20 gm Lorazepam (Ativan) 0.5 mg IVP Q6H PRN PRN Reason: Anxiety Last Admin: 08/11/17 16:50 Dose: 0.5 mg Pantoprazole Sodium (Protonix Ec Tab) 40 mg PO BIDAC [facility] Last Admin: 08/13/17 16:48 Dose: 40 mg Pentoxifylline (Pentoxil) 400 mg PO TID [facility] Last Admin: 08/13/17 17:47 Dose: 400 mg Rifaximin (Xifaxan) 550 mg PO BID [facility] Last Admin: 08/13/17 17:47 Dose: 550 mg - Labs Labs: 08/13/17 11:04 08/13/17 11:04 PT 24.8 SECONDS (9.7-12.2) H 08/13/17 14:00 INR 2.1 08/13/17 14:00 - Constitutional Appears: No Acute Distress - Head Exam Head Exam: NORMAL INSPECTION - Eye Exam Eye Exam: EOMI, PERRL, Scleral icterus - ENT Exam ENT Exam: Mucous Membranes Moist (B/L PAROTID GLAND SWELLING MUCH IMPROVED. NON TENDER.), Normal Oropharynx - Neck Exam Neck Exam: Normal Inspection. absent: Thyromegaly - Respiratory Exam Respiratory Exam: Clear to Ausculation Bilateral - Cardiovascular Exam Cardiovascular Exam: REGULAR RHYTHM, +S1, +S2 - GI/Abdominal Exam GI & Abdominal Exam: Soft, Normal Bowel Sounds. absent: Tenderness - Extremities Exam Extremities Exam: Normal Capillary Refill. absent: Calf Tenderness, Pedal Edema , Tenderness - Neurological Exam Neurological Exam: Awake, CN II-XII Intact, Oriented x3, Reflexes Normal - Psychiatric Exam Psychiatric exam: Normal Mood - Skin Skin Exam: Warm Assessment and Plan (1) Parotitis, acute Assessment & Plan: RESOLVING. oN iv ANTIBIOTICS. Status: Acute (2) Jaundice Assessment & Plan: PATIENT HAS ALCOHOLIC HEPATITIS.. MONITOR lftS.. PATIENT AWAITING TRANSFER TO [facility] CASE DISCUSSED WITH GI . MAY CONSIDER STEROIDS PAROTITIS IMPROVING. Status: Acute (3) Alcohol intoxication Status: Acute (4) Nasal abrasion Status: Acute (5) Fall Status: Acute
[2017-08-14] MEDS: Meropenem 500 MG in Sodium Chloride 0.9% 100 ML IVPB SCH ×3 (06:05→21:01)
--- NOTE | 2017-08-14 06:33 | CP.PCM.PN ---
<Mu Louis - Last Filed: 08/14/17 13:52> Subjective - Date & Time of Evaluation Date of Evaluation: 08/14/17 Time of Evaluation: 06:30 - Subjective Subjective: PGY5 GI Fellow Progress Note Patient seen and examined bedside this morning. The patient states that he was up for most of the night with loose, watery stool; likely a result of lactulose administration. Denies nausea, vomiting. Urinating without issue, very dark yellow per patient. 12 system ROS performed and negative except where stated. Objective - Vital Signs/Intake and Output Vital Signs (last 24 hours): Temp Pulse Resp BP Pulse Ox 98 F 89 20 123/71 96 08/14/17 00:00 08/14/17 00:00 08/14/17 00:00 08/14/17 00:00 08/14/17 00:00 Intake and Output: 08/13/17 08/14/17 18:59 06:59 Intake Total 710 300 Output Total 500 Balance 710 -200 - Medications Medications: Current Medications Meropenem 500 mg/ Sodium (Chloride) 100 mls @ 100 mls/hr IVPB Q8 [facility] Last Admin: 08/14/17 06:05 Dose: 100 mls/hr Vancomycin HCl 1,150 mg/ (Sodium Chloride) 250 mls @ 166.6 mls/hr IVPB Q12H [facility] Last Admin: 08/14/17 02:56 Dose: 166.6 mls/hr Albumin Human (Albutein 5% 500 Ml) 500 mls @ 250 mls/hr IVPB Q8H [facility] Stop: 08/15/17 09:59 Last Admin: 08/14/17 01:00 Dose: 250 mls/hr Ibuprofen (Motrin Tab) 400 mg PO BID [facility] Lactulose (Enulose) 20 gm PO HS [facility] Last Admin: 08/13/17 21:44 Dose: 20 gm Lorazepam (Ativan) 0.5 mg IVP Q6H PRN PRN Reason: Anxiety Last Admin: 08/11/17 16:50 Dose: 0.5 mg Pantoprazole Sodium (Protonix Ec Tab) 40 mg PO BIDAC [facility] Last Admin: 08/13/17 16:48 Dose: 40 mg Pentoxifylline (Pentoxil) 400 mg PO TID [facility] Last Admin: 08/13/17 17:47 Dose: 400 mg Rifaximin (Xifaxan) 550 mg PO BID [facility] Last Admin: 08/13/17 17:47 Dose: 550 mg - Labs Labs: 08/13/17 11:04 08/13/17 11:04 PT 24.8 SECONDS (9.7-12.2) H 08/13/17 14:00 INR 2.1 08/13/17 14:00 - Constitutional Appears: No Acute Distress, Chronically Ill - Eye Exam Eye Exam: EOMI, PERRL, Scleral icterus - ENT Exam ENT Exam: Mucous Membranes Moist - Respiratory Exam Respiratory Exam: Clear to Ausculation Bilateral. absent: Rales, Rhonchi, Wheezes - Cardiovascular Exam Cardiovascular Exam: RRR, +S1, +S2 - GI/Abdominal Exam GI & Abdominal Exam: Soft, Normal Bowel Sounds. absent: Distended, Firm, Guarding, Rigid, Tenderness, Organomegaly - Extremities Exam Extremities Exam: Normal Inspection. absent: Pedal Edema - Neurological Exam Neurological Exam: Alert, Awake, Oriented x3 - Psychiatric Exam Psychiatric exam: Normal Affect, Normal Mood - Skin Skin Exam: Dry, Warm Additional comments: jaundice Assessment and Plan - Assessment and Plan (Free Text) Assessment: Patient is a 56yo male with PMHx significant for EtOH abuse who presented with right facial swelling and new onset jaundice -Acute alcoholic hepatitis -EtOH cirrhosis suspected -Acute right submandibular cellulitis, stable per ID -EtOH abuse -LA Grade C esophagitis -PUD-Duodenal ulcers Plan: -EtOH cirrhosis suspected in background of acute alcoholic hepatitis given nodular liver contour on imaging, coagulopathy, suspected portal HTN/ thrombocytopenia and grade 1 HE (now resolved) -Small to moderate ascites noted on initial imaging - was on Lasix/Aldactone - D /C yesterday given rise in Cr -Albumin 25g IV Q8H - total 6 bags -S/P endoscopy with LA Grade C esophagitis and PUD noted, No EV on screening -MDF 39.7 on admission, cannot give steroid therapy for acute alcoholic hepatitis in the setting of right submandibular cellulitis -Urine studies ordered - BUN, Cr, Na -Started on Pentoxifylline 400mg PO TID yesterday -Protonix 40mg PO BIDAC -D/C Lactulose -Cont Rifaximin 550mg PO BID for HE -Of note, ASMA+ 1:20 (weakly positive) -Check daily MELD labs (CBC, CMP, INR) -AFP 2.9 -Will likely D/C transfer [facility] and favor outpatient follow up *MELD-Na: 29, score will improve if alcoholic hepatitis resolves <Joseph Smart - Last Filed: 08/14/17 16:48> Objective - Vital Signs/Intake and Output Vital Signs (last 24 hours): Temp Pulse Resp BP Pulse Ox 97.8 F 81 20 119/70 97 08/14/17 16:00 08/14/17 16:00 08/14/17 16:00 08/14/17 16:00 08/14/17 16:00 Intake and Output: 08/14/17 08/14/17 06:59 18:59 Intake Total 1270 750 Output Total 500 Balance 770 750 - Medications Medications: Current Medications Meropenem 500 mg/ Sodium (Chloride) 100 mls @ 100 mls/hr IVPB Q8 [facility] Last Admin: 08/14/17 13:34 Dose: 100 mls/hr Vancomycin HCl 1,150 mg/ (Sodium Chloride) 250 mls @ 166.6 mls/hr IVPB Q12H [facility] Last Admin: 08/14/17 13:34 Dose: 166.6 mls/hr Albumin Human (Albutein 5% 500 Ml) 500 mls @ 250 mls/hr IVPB Q8H [facility] Stop: 08/15/17 09:59 Last Admin: 08/14/17 07:51 Dose: 250 mls/hr Ibuprofen (Motrin Tab) 400 mg PO BID [facility] Last Admin: 08/14/17 09:22 Dose: 400 mg Lorazepam (Ativan) 0.5 mg IVP Q6H PRN PRN Reason: Anxiety Last Admin: 08/11/17 16:50 Dose: 0.5 mg Pantoprazole Sodium (Protonix Ec Tab) 40 mg PO BIDAC [facility] Last Admin: 08/14/17 07:51 Dose: 40 mg Pentoxifylline (Pentoxil) 400 mg PO TID [facility] Last Admin: 08/14/17 13:37 Dose: 400 mg Rifaximin (Xifaxan) 550 mg PO BID [facility] Last Admin: 08/14/17 09:21 Dose: 550 mg - Labs Labs: 08/14/17 08:11 08/14/17 08:11 PT 24.5 SECONDS (9.7-12.2) H 08/14/17 08:11 INR 2.1 08/14/17 08:11 Attending/Attestation - Attestation I have personally seen and examined this patient.: Yes I have fully participated in the care of the patient.: Yes I have reviewed all pertinent clinical information, including history, physical exam and plan: Yes Notes (Text): 08/14/17 16:44 I have seen and examined patient with GI fellow. No acute events overnight, he denies abdominal pain, nausea, vomiting, diarrhea, fever/chills. Tolerating PO diet without difficulty. He had multiple loose bowel movements over the past 24 hours. Review of vitals from today are normal. Suspected ETOH cirrhosis with acute ETOH hepatitis Cellulitis - Low sodium diet as tolerated - Continue with xifaxan therapy, lactulose discontinued given multiple loose bowel movements - LFTs stable, bilirubin decreased continue to monitor - Continue with trental for period of 1 month for HRS prevention - Continue with PPI therapy given presence of esophagitis on recent EGD - Continue with antibiotic therapy as per ID - ETOH cessation counseling - From GI perspective, ok to discharge patient home with subsequent outpatient follow up. Office contact information provided to patient. Will sign off case , please reconsult as necessary, thank you. Case discussed with Dr. Renee.
[2017-08-14] MEDS: Pantoprazole 40 mg EC Tab PO SCH ×2 (07:51→16:53)
[2017-08-14 08:27] LABS: BASO # 0.1 K/uL (0.0-0.2); BASO % 0.7 % (0.0-2.0); EOS # 0.1 K/uL (0.0-0.7); EOS % 1.6 % (0.0-4.0); HEMOGLOBIN 9.9 g/dL (12.0-18.0); LYMPH # 0.8 K/uL (1.0-4.3); LYMPH % 9.1 % (20.0-40.0); MEAN CELL VOLUME 104.7 fL (80.0-94.0); MEAN CORPUSCULAR HEMOGLOBIN 37.3 pg (27.0-31.0); MEAN CORPUSCULAR HGB CONC 35.6 g/dL (33.0-37.0); MONO # 1.2 K/uL (0.0-0.8); MONO % 12.8 % (0.0-10.0); NEUT % 75.8 % (50.0-75.0); PLATELET COUNT 85 K/uL (130-400); RBC 2.66 Mil/uL (4.40-5.90); RED CELL DISTRIBUTION WIDTH 17.1 % (11.5-14.5); WHITE BLOOD COUNT 9.2 K/uL (4.8-10.8)
[2017-08-14 08:33] LABS: INR 2.1; PROTHROMBIN TIME 24.5 SECONDS (9.7-12.2)
[2017-08-14 08:40] LABS: ALB/GLOB RATIO 0.7 (1.0-2.1); ALBUMIN 2.6 g/dL (3.5-5.0); ALT/SGPT 40 U/L (21-72); AST/SGOT 116 U/L (17-59); BLOOD UREA NITROGEN 15 mg/dL (9-20); CALCIUM 7.5 mg/dl (8.6-10.4); GFR AFRICAN-AMERICAN > 60; GFR NON-AFRICAN AMERICAN > 60
[2017-08-14 09:16] LABS: LYMPHOCYTE 11 % (20-40); MONOCYTE 12 % (0-10); NEUTROPHIL 76 % (50-75); TOTAL CELLS COUNTED 100
[2017-08-14 09:17] LABS: ANISOCYTOSIS SLIGHT; PLATELET ESTIMATE DECREASED (NORMAL); POIKILOCYTOSIS SLIGHT
[2017-08-14 09:18] LABS: HYPOCHROMIC SLIGHT; LARGE PLATELETS PRESENT; TARGET CELLS SLIGHT
--- NOTE | 2017-08-14 13:20 | CP.PCM.PN ---
Subjective - Date & Time of Evaluation Date of Evaluation: 08/14/17 Time of Evaluation: 13:20 - Subjective Subjective: S/P EGD NO ACUTE FINGINGS D/W GI, TO BE TRANSFERRED TO [facility]ARE FOR FURTHER TREATMENT OF ACUTE ALCOHOLIC HEPATITIS , CURRENTLY NOT WELL RESPONDING T.BILIRUBIB REMAINS SAME PAROTID SWELLING REGRESSING APPETITE POOR MAY TRY STEROIDS ? Objective - Vital Signs/Intake and Output Vital Signs (last 24 hours): Temp Pulse Resp BP Pulse Ox 97.5 F L 84 20 125/73 98 08/14/17 08:29 08/14/17 08:29 08/14/17 08:29 08/14/17 08:29 08/14/17 08:29 Intake and Output: 08/14/17 08/14/17 11:59 23:59 Intake Total 970 Balance 970 - Medications Medications: Current Medications Meropenem 500 mg/ Sodium (Chloride) 100 mls @ 100 mls/hr IVPB Q8 [facility] Last Admin: 08/14/17 06:05 Dose: 100 mls/hr Vancomycin HCl 1,150 mg/ (Sodium Chloride) 250 mls @ 166.6 mls/hr IVPB Q12H [facility] Last Admin: 08/14/17 02:56 Dose: 166.6 mls/hr Albumin Human (Albutein 5% 500 Ml) 500 mls @ 250 mls/hr IVPB Q8H [facility] Stop: 08/15/17 09:59 Last Admin: 08/14/17 07:51 Dose: 250 mls/hr Ibuprofen (Motrin Tab) 400 mg PO BID [facility] Last Admin: 08/14/17 09:22 Dose: 400 mg Lorazepam (Ativan) 0.5 mg IVP Q6H PRN PRN Reason: Anxiety Last Admin: 08/11/17 16:50 Dose: 0.5 mg Pantoprazole Sodium (Protonix Ec Tab) 40 mg PO BIDAC [facility] Last Admin: 08/14/17 07:51 Dose: 40 mg Pentoxifylline (Pentoxil) 400 mg PO TID [facility] Last Admin: 08/14/17 09:21 Dose: 400 mg Rifaximin (Xifaxan) 550 mg PO BID [facility] Last Admin: 08/14/17 09:21 Dose: 550 mg - Labs Labs: 08/14/17 08:11 02/15/18 08:11 PT 24.5 SECONDS (9.7-12.2) H 08/14/17 08:11 INR 2.1 08/14/17 08:11 Assessment and Plan (1) Jaundice Status: Acute (2) Parotitis, acute Status: Acute (3) Alcohol use disorder Status: Acute
--- NOTE | 2017-08-14 14:08 | CP.PCM.PN ---
Subjective - Date & Time of Evaluation Date of Evaluation: 08/14/17 Time of Evaluation: 14:08 - Subjective Subjective: afebrile, Offers no new complaints. BILATERAL PAROTID SWELLING MUCH IMPROVED GI NOTED. HAD DIARRHEA LAST NIGHT? LACTULOSE EGD FINDINGS NOTED. PATIENT ANXIOUS TO GO HOME Objective - Vital Signs/Intake and Output Vital Signs (last 24 hours): Temp Pulse Resp BP Pulse Ox 97.5 F L 84 20 125/73 98 08/14/17 08:29 08/14/17 08:29 08/14/17 08:29 08/14/17 08:29 08/14/17 08:29 Intake and Output: 08/14/17 08/14/17 06:59 18:59 Intake Total 1270 Output Total 500 Balance 770 - Medications Medications: Current Medications Meropenem 500 mg/ Sodium (Chloride) 100 mls @ 100 mls/hr IVPB Q8 [facility] Last Admin: 08/14/17 13:34 Dose: 100 mls/hr Vancomycin HCl 1,150 mg/ (Sodium Chloride) 250 mls @ 166.6 mls/hr IVPB Q12H [facility] Last Admin: 08/14/17 13:34 Dose: 166.6 mls/hr Albumin Human (Albutein 5% 500 Ml) 500 mls @ 250 mls/hr IVPB Q8H [facility] Stop: 08/15/17 09:59 Last Admin: 08/14/17 07:51 Dose: 250 mls/hr Ibuprofen (Motrin Tab) 400 mg PO BID [facility] Last Admin: 08/14/17 09:22 Dose: 400 mg Lorazepam (Ativan) 0.5 mg IVP Q6H PRN PRN Reason: Anxiety Last Admin: 08/11/17 16:50 Dose: 0.5 mg Pantoprazole Sodium (Protonix Ec Tab) 40 mg PO BIDAC [facility] Last Admin: 08/14/17 07:51 Dose: 40 mg Pentoxifylline (Pentoxil) 400 mg PO TID [facility] Last Admin: 08/14/17 13:37 Dose: 400 mg Rifaximin (Xifaxan) 550 mg PO BID [facility] Last Admin: 08/14/17 09:21 Dose: 550 mg - Labs Labs: 08/14/17 08:11 08/14/17 08:11 PT 24.5 SECONDS (9.7-12.2) H 08/14/17 08:11 INR 2.1 08/14/17 08:11 - Constitutional Appears: No Acute Distress - Head Exam Head Exam: NORMAL INSPECTION - Eye Exam Eye Exam: EOMI, PERRL, Scleral icterus - ENT Exam ENT Exam: Normal Oropharynx (RIGHT PAROTID GLAND SWELLING DECREASED. NO TENDERNESS OR CELLULITIS.) - Neck Exam Neck Exam: Normal Inspection - Respiratory Exam Respiratory Exam: Clear to Ausculation Bilateral - Cardiovascular Exam Cardiovascular Exam: REGULAR RHYTHM, +S1, +S2 - GI/Abdominal Exam GI & Abdominal Exam: Soft, Normal Bowel Sounds. absent: Tenderness - Extremities Exam Extremities Exam: absent: Calf Tenderness, Pedal Edema - Neurological Exam Neurological Exam: Awake, CN II-XII Intact, Normal Gait, Oriented x3, Reflexes Normal - Psychiatric Exam Psychiatric exam: Normal Mood - Skin Skin Exam: Normal Color, Warm Assessment and Plan (1) Parotitis, acute Assessment & Plan: RESOLVING. oN iv ANTIBIOTICS. DC IV ABX TERRY . START PO OMNICEF 300MG PO BID X 5DAYSIN AM. CASE DISCUSSED WITH STAFF/ GI.. Status: Acute (2) Jaundice Assessment & Plan: PATIENT HAS ALCOHOLIC HEPATITIS.. MONITOR lftS.. PT ON PO RIFAXAMIN 550MG PO BID FOR HE PER GI PT STARTED ON PENTOXIFYLLIN 400MG PO TID BY GI. TRANSFER CANCELLED BY GI TO [facility] . FOR OPD F/U Status: Acute (3) Alcohol intoxication Status: Acute (4) Nasal abrasion Status: Acute (5) Fall Status: Acute
[2017-08-14 23:23] LABS: CREATININE, RANDOM URINE 321.2 mg/dL
[2017-08-15] MEDS: Meropenem 500 MG in Sodium Chloride 0.9% 100 ML IVPB SCH (06:00)
[2017-08-15] MEDS: Pantoprazole 40 mg EC Tab PO SCH (07:45)
[2017-08-15 08:17] VITALS: BP 120/80; PULSE 89; TEMP 97.3; O2SAT 99
[2017-08-15 08:34] LABS: INR 2.3; PROTHROMBIN TIME 26.6 SECONDS (9.7-12.2)
[2017-08-15 08:35] LABS: BASO # 0.1 K/uL (0.0-0.2); BASO % 1.1 % (0.0-2.0); EOS # 0.3 K/uL (0.0-0.7); EOS % 3.5 % (0.0-4.0); HEMOGLOBIN 10.7 g/dL (12.0-18.0); LYMPH % 10.6 % (20.0-40.0); MEAN CELL VOLUME 105.8 fL (80.0-94.0); MEAN CORPUSCULAR HEMOGLOBIN 37.5 pg (27.0-31.0); MEAN CORPUSCULAR HGB CONC 35.5 g/dL (33.0-37.0); MEAN PLATELET VOLUME 8.1 fL (7.2-11.7); MONO # 1.2 K/uL (0.0-0.8); MONO % 12.8 % (0.0-10.0); NEUT # 6.5 K/uL (1.8-7.0); NRBC % 0.1 % (0.0-2.0); RBC 2.86 Mil/uL (4.40-5.90); RED CELL DISTRIBUTION WIDTH 16.9 % (11.5-14.5); WHITE BLOOD COUNT 9.1 K/uL (4.8-10.8)
[2017-08-15 08:40] LABS: ALT/SGPT 38 U/L (21-72); AST/SGOT 112 U/L (17-59); BLOOD UREA NITROGEN 15 mg/dL (9-20); CALCIUM 7.9 mg/dl (8.6-10.4); GFR AFRICAN-AMERICAN > 60; GFR NON-AFRICAN AMERICAN > 60
[2017-08-15 08:41] LABS: ALB/GLOB RATIO 0.8 (1.0-2.1)
[2017-08-15] MEDS ORDERED: Potassium Chloride 20 mEq ER Tab PO ONE (11:01)
--- NOTE | 2017-08-15 13:18 | CP.PCM.PN ---
Subjective - Date & Time of Evaluation Date of Evaluation: 08/15/17 Time of Evaluation: 13:18 - Subjective Subjective: AFEBRILE. ICTERIC. OFFERS NO NEW COMPLAINTS. CASE DISCUSSED WITH STAFF. LABS REVIEWED. RENAL FUNCTION STABLE. ELIANA 16.1 ALL CULTURES -VE TO DATE. Objective - Vital Signs/Intake and Output Vital Signs (last 24 hours): Temp Pulse Resp BP Pulse Ox 97.3 F L 89 20 120/80 99 08/15/17 08:15 08/15/17 08:15 08/15/17 08:15 08/15/17 08:15 08/15/17 08:15 Intake and Output: 08/15/17 08/15/17 06:59 18:59 Intake Total 960 Balance 960 - Medications Medications: Current Medications Meropenem 500 mg/ Sodium (Chloride) 100 mls @ 100 mls/hr IVPB Q8 [facility] Last Admin: 08/15/17 06:00 Dose: 100 mls/hr Vancomycin HCl 1,150 mg/ (Sodium Chloride) 250 mls @ 166.6 mls/hr IVPB Q12H [facility] Last Admin: 08/15/17 02:25 Dose: 166.6 mls/hr Ibuprofen (Motrin Tab) 400 mg PO BID [facility] Last Admin: 08/15/17 09:43 Dose: 400 mg Lorazepam (Ativan) 0.5 mg IVP Q6H PRN PRN Reason: Anxiety Last Admin: 08/11/17 16:50 Dose: 0.5 mg Pantoprazole Sodium (Protonix Ec Tab) 40 mg PO BIDAC [facility] Last Admin: 08/15/17 07:45 Dose: 40 mg Pentoxifylline (Pentoxil) 400 mg PO TID [facility] Stop: 09/10/17 15:00 Last Admin: 08/15/17 09:43 Dose: 400 mg Rifaximin (Xifaxan) 550 mg PO BID [facility] Last Admin: 08/15/17 09:45 Dose: 550 mg - Labs Labs: 08/15/17 08:22 08/15/17 08:22 PT 26.6 SECONDS (9.7-12.2) H 08/15/17 08:22 INR 2.3 08/15/17 08:22 - Constitutional Appears: No Acute Distress, Chronically Ill - Head Exam Head Exam: NORMAL INSPECTION - Eye Exam Eye Exam: EOMI, PERRL, Scleral icterus Pupil Exam: PERRL - ENT Exam ENT Exam: Normal Oropharynx - Neck Exam Neck Exam: Normal Inspection - Respiratory Exam Respiratory Exam: Clear to Ausculation Bilateral - Cardiovascular Exam Cardiovascular Exam: REGULAR RHYTHM, +S1, +S2 - GI/Abdominal Exam GI & Abdominal Exam: Soft, Normal Bowel Sounds - Extremities Exam Extremities Exam: absent: Calf Tenderness, Pedal Edema - Neurological Exam Neurological Exam: Awake, CN II-XII Intact, Oriented x3, Reflexes Normal - Psychiatric Exam Psychiatric exam: Normal Mood - Skin Skin Exam: Warm (+VE JAUNDICE) Assessment and Plan (1) Parotitis, acute Assessment & Plan: RESOLVING.PAROTITIS. oN iv ANTIBIOTICS. DC IV ABX . START PO OMNICEF 300MG PO BID X 5DAYS MONITOR LFTS CLOSELY Status: Acute (2) Jaundice Assessment & Plan: PATIENT HAS ALCOHOLIC HEPATITIS.. MONITOR lftS.. PT ON PO RIFAXAMIN 550MG PO BID FOR HE PER GI PT STARTED ON PENTOXIFYLLIN 400MG PO TID BY GI. 08/14/17. PT ASKED TO REFRAIN FROM ALCOHOL. Status: Acute (3) Alcohol intoxication Status: Acute (4) Nasal abrasion Status: Acute (5) Fall Status: Acute
--- NOTE | 2017-08-15 13:39 | CP.PCM.DIS ---
Provider - Provider Date of Admission: 08/09/17 00:05 Attending physician: Evelyn Renee MD Time Spent in preparation of Discharge (in minutes): 30 Diagnosis - Discharge Diagnosis (1) Jaundice Status: Acute (2) Parotitis, acute Status: Acute (3) Alcohol use disorder Status: Acute Hospital Course - Lab Results Lab Results: Micro Results 08/09/17 19:30 Blood-Venous Blood Culture - Final NO GROWTH AFTER 5 DAYS 08/09/17 19:30 Blood-Venous Gram Stain - Final TEST NOT PERFORMED 08/09/17 19:00 Blood-Venous Blood Culture - Final NO GROWTH AFTER 5 DAYS 08/09/17 19:00 Blood-Venous Gram Stain - Final TEST NOT PERFORMED 08/13/17 Unknown Urine,Clean Catch Urine Culture - Final No Growth (<1,000 CFU/ML) Most Recent Lab Values WBC 9.1 K/uL (4.8-10.8) 08/15/17 08:22 RBC 2.86 Mil/uL (4.40-5.90) L 08/15/17 08:22 Hgb 10.7 g/dL (12.0-18.0) L 08/15/17 08:22 Hct 30.3 % (35.0-51.0) L 08/15/17 08:22 MCV 105.8 fL (80.0-94.0) H 08/15/17 08:22 MCH 37.5 pg (27.0-31.0) H 08/15/17 08:22 MCHC 35.5 g/dL (33.0-37.0) 08/15/17 08:22 RDW 16.9 % (11.5-14.5) H 08/15/17 08:22 Plt Count 101 K/uL (130-400) L 08/15/17 08:22 MPV 8.1 fL (7.2-11.7) 08/15/17 08:22 Neut % (Auto) 72.0 % (50.0-75.0) 08/15/17 08:22 Lymph % (Auto) 10.6 % (20.0-40.0) L 08/15/17 08:22 [place] % (Auto) 12.8 % (0.0-10.0) H 08/15/17 08:22 Eos % (Auto) 3.5 % (0.0-4.0) 08/15/17 08:22 Baso % (Auto) 1.1 % (0.0-2.0) 08/15/17 08:22 Neut # (Auto) 6.5 K/uL (1.8-7.0) 08/15/17 08:22 Lymph # (Auto) 1.0 K/uL (1.0-4.3) 08/15/17 08:22 [place] # (Auto) 1.2 K/uL (0.0-0.8) H 08/15/17 08:22 Eos # (Auto) 0.3 K/uL (0.0-0.7) 08/15/17 08:22 Baso # (Auto) 0.1 K/uL (0.0-0.2) 08/15/17 08:22 Neutrophils % (Manual) 76 % (50-75) H 08/14/17 08:11 Band Neutrophils % 5 % (0-2) H 08/08/17 20:08 Lymphocytes % (Manual) 11 % (20-40) L 08/14/17 08:11 Monocytes % (Manual) 12 % (0-10) H 08/14/17 08:11 Differential Comment 08/15/17 08:22 Hypersegmented Polys Present 08/08/17 20:08 Platelet Estimate Decreased (NORMAL) L 08/14/17 08:11 Large Platelets Present 08/14/17 08:11 Hypochromasia (manual) Slight 08/14/17 08:11 Poikilocytosis (manual Slight 08/14/17 08:11 Anisocytosis (manual) Slight 08/14/17 08:11 Target Cells Slight 08/14/17 08:11 PT 26.6 SECONDS (9.7-12.2) H 08/15/17 08:22 INR 2.3 08/15/17 08:22 Sodium 131 mmol/L (132-148) L 08/15/17 08:22 Potassium 3.5 mmol/L (3.6-5.2) L 08/15/17 08:22 Chloride 99 mmol/L (98-107) 08/15/17 08:22 Carbon Dioxide 21 mmol/L (22-30) L 08/15/17 08:22 Anion Gap 14 (10-20) 08/15/17 08:22 BUN 15 mg/dL (9-20) 08/15/17 08:22 Creatinine 1.0 mg/dL (0.8-1.5) 08/15/17 08:22 Est GFR ( Amer) > 60 08/15/17 08:22 Est GFR (Non-Af Amer) > 60 08/15/17 08:22 Random Glucose 82 mg/dL (75-110) 08/15/17 08:22 Calcium 7.9 mg/dl (8.6-10.4) L 08/15/17 08:22 Iron 63 ug/dL (49-181) 08/09/17 13:50 TIBC 138 ug/dL (250-450) L 08/09/17 13:50 % Saturation 46 (20-55) 08/09/17 13:50 Ferritin 2190.0 ng/mL 08/09/17 13:50 Total Bilirubin 16.0 mg/dL (0.2-1.3) H 08/15/17 08:22 Direct Bilirubin 8.3 mg/dL (0.0-0.4) H 08/11/17 07:15 AST 112 U/L (17-59) H 08/15/17 08:22 ALT 38 U/L (21-72) 08/15/17 08:22 Alkaline Phosphatase 131 U/L (38-126) H 08/15/17 08:22 C-React Prot High Sens > 15.00 mg/L (1.00-3.00) H 08/10/17 08:18 Total Protein 6.9 g/dL (6.3-8.3) 08/15/17 08:22 Albumin 3.0 g/dL (3.5-5.0) L 08/15/17 08:22 Globulin 3.9 gm/dL (2.2-3.9) 08/15/17 08:22 Albumin/Globulin Ratio 0.8 (1.0-2.1) L 08/15/17 08:22 Ceruloplasmin 26 mg/dL (18-36) 08/09/17 13:50 Amylase 120 U/L (30-110) H D 08/12/17 07:50 Lipase 161 U/L (23-300) 08/12/17 07:50 Alpha Fetoprotein 2.9 ng/mL (0.0-7.5) 08/14/17 08:11 Ur Random Creatinine 321.2 mg/dL 08/14/17 22:55 Ur Random Sodium 18 mmol/L 08/14/17 22:55 Ur Random Urea Nitrogn 1053 mg/dL 08/14/17 22:55 Vancomycin Trough 19.6 ug/mL (5.0-10.0) H 08/13/17 01:43 Alcohol, Quantitative 205 mg/dl (0-10) H 08/08/17 22:14 DOMINIK 6 Profile Negative (NEGATIVE) 08/10/17 08:18 DOMINIK Nuclear Membr Pat Negative (Negative) 08/09/17 13:50 Anti-Mitochondrial Ab Negative (Negative) 08/09/17 13:50 Smooth Muscle Ab Titer 1:20 Titer (< 1:20) H 08/09/17 13:50 Anti-Smooth Muscle Ab Positive (Negative) H 08/09/17 13:50 Liver/Kid Microsomes Ab <=20.0 U (<=20.0) 08/09/17 13:50 Absolute Lymphs (Flow) 1182 Cells/mcL (850-3900) 08/10/17 08:18 % CD4 Cells 71 Percent (30-61) H 08/10/17 08:18 Absolute CD4 Count 839 Cells/mcL (490-1740) 08/10/17 08:18 T-Help/Suppress Ratio 3.80 Ratio (0.86-5.00) 08/10/17 08:18 % CD8 Cells 19 Percent (12-42) 08/10/17 08:18 Absolute CD8 Count 221 Cells/mcL (180-1170) 08/10/17 08:18 [place] Type B(1) Ab <1:8 08/10/17 08:18 [place] Type B(2) Ab 1:8 H 08/10/17 08:18 [place] Type B(3) Ab <1:8 08/10/17 08:18 [place] Type B(4) Ab <1:8 08/10/17 08:18 [place] Type B(5) Ab 1:32 H 08/10/17 08:18 [place] Type B(6) Ab 1:8 H 08/10/17 08:18 Hepatitis A IgM Ab Negative (NEGATIVE) 08/10/17 08:18 Hep Bs Antigen Negative (NEGATIVE) 08/10/17 08:18 Hep B Core IgM Ab Negative (NEGATIVE) 08/10/17 08:18 Hepatitis C Antibody Negative (NEGATIVE) 08/10/17 08:18 HIV 1&2 Antibody Screen Negative (NEGATIVE) 08/10/17 08:18 Blood Type A POSITIVE 08/11/17 11:54 Blood Type Confirm A POSITIVE 08/11/17 11:54 Antibody Screen Negative 08/11/17 11:54 - Hospital Course Hospital Course: 56 YEARS OLD W/M WITH NO MEDICAL F/U ADMITTED HER SISTER WHOSE IS RN IN NOTICED YELLOW EYSE AND R. PAROTID SWELLING . NO N/V BLACK STOOLS . FATIGUE AND TIRED IN ER , BILIRUBIN WAS 13 WITH MILD LFT ELEVATION R. PAROTID GLAND SWOLLEN WITH CELLULITIS PT ADMITTED FOR FURTHER TREATMENT ID/GI CONSULTED WITH CONSERVATIVE THERAPY PT IMPROVED WITH DROP IN BILIRUBIN INITIALLY GI SERVICE WANTED TO TRANSFER PT TO [facility] IN [facility] , BUT LATER CHANGED THE PLAN AND WILL GO HOME AND F/U OP [id number] SHOWED CELLULITIS AND RESPONDED WITH IV` CURRENTLY STABLE WITH DOWN TRENDING BILIRUBIN PT WAS STRONGLY EMPHASIZED TO STOP ALCOHOL AND JOIN AAA Discharge Exam - Head Exam Head Exam: NORMAL INSPECTION Discharge Plan - Discharge Medications Prescriptions: Spironolactone [Aldactone] 100 mg PO DAILY #15 tab Cefdinir [Omnicef] 300 mg PO BID #10 cap Pentoxifylline [Pentoxil] 400 mg PO TID #30 ter Pantoprazole Sodium [Protonix] 40 mg PO DAILY #30 ect rifAXIMin [Xifaxan] 550 mg PO BID #30 tab - Follow Up Plan Condition: FAIR Disposition: HOME/ ROUTINE Instructions: Cefdinir, Pantoprazole, Pentoxifylline, Spironolactone, Abrasion (ED), Jaundice (ED), Alcohol Use Disorder (ED) Additional Instructions: [id number] po BID X5 days f/u with DR Escalona in 1 week avoid alcohol advised to bring all the med to the office to review Referrals: Yary Escalona MD [Staff Provider] - Evelyn Renee MD [Staff Provider] -
== END 2017-08-15 14:24 | disposition home or self-care (01) | DRG 155 ==
LOC: C.ER 16:45 → C.9E 08-09 00:05 → C.3T 08-09 09:43
PROVIDERS: ADMIT Internal Medicine Cardiovascular Disease; ATTEND Internal Medicine Cardiovascular Disease
PROC: 0DB68ZX Excision of Stomach, Via Natural or Artificial Opening Endoscopic, Diagnostic (ICD-10-PCS; 2017-08-11)
PROC: 0DB48ZX Excision of Esophagogastric Junction, Via Natural or Artificial Opening Endoscopic, Diagnostic (ICD-10-PCS; principal; 2017-08-11 12:20)
DX: K11.21 Acute sialoadenitis (principal); L03.221 Cellulitis of neck; D61.818 Other pancytopenia; D68.9 Coagulation defect, unspecified; K76.6 Portal hypertension; K26.9 Duodenal ulcer, unspecified as acute or chronic, without hemorrhage or perforation; K12.2 Cellulitis and abscess of mouth; K70.10 Alcoholic hepatitis without ascites; W18.39XA Other fall on same level, initial encounter; S00.31XA Abrasion of nose, initial encounter; K70.30 Alcoholic cirrhosis of liver without ascites; F17.210 Nicotine dependence, cigarettes, uncomplicated; F10.229 Alcohol dependence with intoxication, unspecified; Y90.7 Blood alcohol level of 200-239 mg/100 ml; J34.2 Deviated nasal septum; K21.0 Gastro-esophageal reflux disease with esophagitis

== ENCOUNTER 2017-10-24 22:09 | Inpatient (IN) | payer MEDICAID ==
[2017-10-24 22:10] VITALS: BMI 23.4
[2017-10-24] MEDS: Vancomycin 125 MG/5 ML SOLN (ORAL/RECTAL) PO SCH (22:14)
[2017-10-24] MEDS ORDERED: Sodium Chloride 0.9% 500 ML IV ONE ×2 (22:46→22:57)
[2017-10-24 23:10] LABS: BASO # 0.1 K/uL (0.0-0.2); BASO % 0.4 % (0.0-2.0); EOS # 0.2 K/uL (0.0-0.7); EOS % 1.5 % (0.0-4.0); HEMOGLOBIN 11.1 g/dL (12.0-18.0); LYMPH % 11.8 % (20.0-40.0); MEAN CELL VOLUME 108.6 fL (80.0-94.0); MEAN CORPUSCULAR HEMOGLOBIN 38.2 pg (27.0-31.0); MEAN CORPUSCULAR HGB CONC 35.2 g/dL (33.0-37.0); MEAN PLATELET VOLUME 6.7 fL (7.2-11.7); MONO # 1.9 K/uL (0.0-0.8); MONO % 11.4 % (0.0-10.0); NEUT # 12.5 K/uL (1.8-7.0); NEUT % 74.9 % (50.0-75.0); RBC 2.91 Mil/uL (4.40-5.90); RED CELL DISTRIBUTION WIDTH 14.4 % (11.5-14.5); WHITE BLOOD COUNT 16.6 K/uL (4.8-10.8)
[2017-10-24 23:12] LABS: INR 1.6; PROTHROMBIN TIME 17.8 SECONDS (9.7-12.2)
[2017-10-24 23:16] LABS: ALB/GLOB RATIO 0.6 (1.0-2.1); ALBUMIN 3.1 g/dL (3.5-5.0); ALT/SGPT 39 U/L (21-72); AST/SGOT 72 U/L (17-59); BLOOD UREA NITROGEN 20 mg/dL (9-20); CALCIUM 8.7 mg/dl (8.6-10.4); GFR AFRICAN-AMERICAN > 60; GFR NON-AFRICAN AMERICAN > 60; LIPASE 697 U/L (23-300)
[2017-10-24] MEDS ORDERED: Iohexol 300 100 ML IJ ONE (23:24)
--- NOTE | 2017-10-25 00:06 | CT ---
EXAM: CT Abdomen and Pelvis With Intravenous Contrast CLINICAL HISTORY: 56 years old, male; Condition or disease; Intestinal condition; Diverticulitis; Without bleeding; Additional info: Rectal bleed, ? variceal vs diverticular TECHNIQUE: Axial computed tomography images of the abdomen and pelvis with intravenous contrast. All CT scans at this facility use one or more dose reduction techniques, viz.: automated exposure control; ma/kV adjustment per patient size (including targeted exams where dose is matched to indication; i.e. head); or iterative reconstruction technique. Coronal and sagittal reformatted images were created and reviewed. CONTRAST: 100 mL of omnipaque 300 administered intravenously. COMPARISON: CT - ABD PELVIS IV CONTRAST ONLY 2017-08-09 08:23 FINDINGS: Lung bases: Unremarkable. No mass. No consolidation. ABDOMEN: Liver: Cirrhosis. Gallbladder and bile ducts: Cholelithiasis. No ductal dilation. Pancreas: Unremarkable. No mass. No ductal dilation. Spleen: Unremarkable. No splenomegaly. Adrenals: Unremarkable. No mass. Kidneys and ureters: Unremarkable. No solid mass. No hydronephrosis. Stomach and bowel: Fluid-filled stomach. Fluid-filled small bowel loops. No evidence of small bowel obstruction. Large amount retained stool in colon. Large amount of stool in rectum which is dilated. Nonspecific rectal wall thickening. PELVIS: Appendix: No findings to suggest acute appendicitis. Bladder: Unremarkable. No mass. Reproductive: Unremarkable as visualized. ABDOMEN and PELVIS: Intraperitoneal space: Small amount of ascites. No free air. Bones/joints: Diffuse spinal degenerative changes. No acute fracture. No dislocation. Soft tissues: Unremarkable. Vasculature: Atherosclerotic vascular disease. Esophageal varices. Portosystemic collaterals. No abdominal aortic aneurysm. Lymph nodes: Unremarkable. No enlarged lymph nodes. IMPRESSION: 1. Cirrhosis with sequela of portal hypertension. 2. Large amount retained stool in distal colon and rectum. Nonspecific rectal wall thickening. 3. Cholelithiasis. 4. Small amount of ascites. 5. Remainder of findings as above.
[2017-10-25] MEDS ORDERED: Sodium Chloride 0.9% 1,000 ML IV ONE (00:44)
[2017-10-25] MEDS ORDERED: Sodium Chloride 0.9% 1,000 ML ONE (00:45)
--- NOTE | 2017-10-25 00:51 | C.PDOC ---
History Of Present Illness 56 y/o male presents to ED for complaints of crampy belly pain and lower GI bleed. Denies any other physical complaints. Time Seen by Provider: 10/24/17 22:39 Chief Complaint (Nursing): GI Problem History Per: Patient History/Exam Limitations: no limitations Onset/Duration Of Symptoms: Hrs Current Symptoms Are (Timing): Still Present Location Of Pain/Discomfort: Diffuse Radiation Of Pain To:: None Quality Of Discomfort: Cramping Associated Symptoms: denies: Fever, Chills, Nausea, Vomiting Exacerbating Factors: None Alleviating Factors: None Recent travel outside of the [place]: No Past Medical History Reviewed: Historical Data, Nursing Documentation, Vital Signs Vital Signs: Last Vital Signs Temp 97.9 F 10/29/17 13:28 Pulse 76 10/29/17 13:28 Resp 14 10/29/17 13:28 BP 109/66 10/29/17 13:28 Pulse Ox 100 10/29/17 13:28 - Medical History PMH: No Chronic Diseases - [facility] Procedures EXCISION OF ESOPHAGOGASTRIC JUNCTION, ENDO, DIAGN (08/09/17) EXCISION OF STOMACH, ENDO, DIAGN (08/09/17) Family History: States: Unknown Family Hx - Social History Hx Tobacco Use: Yes (light smoker) Hx Alcohol Use: Yes (former) Hx Substance Use: No - Immunization History Hx Tetanus Toxoid Vaccination: No Hx Influenza Vaccination: No Hx Pneumococcal Vaccination: No Review Of Systems Constitutional: Negative for: Fever, Chills Respiratory: Negative for: Shortness of Breath Gastrointestinal: Positive for: Abdominal Pain, Hematochezia. Negative for: Nausea, Vomiting, Diarrhea Skin: Negative for: Rash Neurological: Negative for: Weakness, Numbness Physical Exam - Physical Exam Appears: Non-toxic, No Acute Distress Eye(s): bilateral: Other (icteric; jaundiced; skeletal ) Oral Mucosa: Moist Neck: Supple Chest: Symmetrical, No Tenderness Cardiovascular: Rhythm Regular Respiratory: No Decreased Breath Sounds, No Rales, No Wheezing Gastrointestinal/Abdominal: Soft, No Tenderness, Other (mild ascites) Rectal: Other (Large volume clots in stool ) Extremity: Normal ROM, No Tenderness, No Pedal Edema, Other (Thin) Neurological/Psych: Oriented x3, Normal Speech, Normal Cognition Gait: Steady ED Course And Treatment - Laboratory Results Result Diagrams: 10/29/17 06:25 10/29/17 06:26 Lab Interpretation: Abnormal (lipase 697 H, ammonia 88H) ECG: Interpreted By Dc ECG Rhythm: Sinus Rhythm ECG Interpretation: Normal Rate From EC O2 Sat by Pulse Oximetry: 100 (RA) Pulse Ox Interpretation: Normal - Radiology CXR: Interpreted by Me CXR Interpretation: Yes: No Acute Disease - CT Scan/US CT Abdomen&Pelvis Other Rad Studies (CT/US): Read By Radiologist, Radiology Report Reviewed CT/US Interpretation: IMPRESSION: 1. Cirrhosis with sequela of portal hypertension. 2. Large amount retained stool in distal colon and rectum. Nonspecific rectal. wall thickening. 3. Cholelithiasis. 4. Small amount of ascites. 5. Remainder of findings as above. Reevaluation Time: 00:51 (deteriorating VS's) - Physician Consult Information Outcome Of Conversation: 0030: d/w Dr. Negron ok to adm to ICU. 0030: d/w Dr. Casas ICU, ok to ICU immediately. 0040: d/w GI consult Fellow, will eval Medical Decision Making Medical Decision Making: Administered IV Fluids, Albumin and Protonix. Ordered Abd& Pelvis, EKG, blood work, CXR, blood culture, and urinalysis. EKG: - Normal sinus rhythm at 97bpm 1:15AM: - Paged Patient's GI Jo Holland, but answering service informed that is covering and waiting for call back. Disposition Doctor Will See Patient In The: Hospital Counseled Patient/Family Regarding: Studies Performed, Diagnosis - Disposition Disposition: HOSPITALIZED Disposition Time: 21:00 Condition: FAIR - Clinical Impression Clinical Impression: Gastrointestinal hemorrhage, Jaundice - Scribe Statement The provider has reviewed the documentation as recorded by the Elishaibvineet Lee All medical record entries made by the Elishaibvineet were at my direction and personally dictated by me. I have reviewed the chart and agree that the record accurately reflects my personal performance of the history, physical exam, medical decision making, and the department course for this patient. I have also personally directed, reviewed, and agree with the discharge instructions and disposition.
[2017-10-25] MEDS: Albumin Human 25% (12.5 gm/50 ml) IV SCH ×6 (01:40→11:53)
[2017-10-25] MEDS: Sodium Chloride 0.9% 1,000 ML IV SCH ×2 (01:42→16:18)
--- NOTE | 2017-10-25 02:10 | CP.PCM.CON ---
History of Present Illness - History of Present Illness History of Present Illness: 56yo M. PMHx ETOH abuse with cirrhosis, c.diff colitis. p/w abdominal pain and bloody bowel movements. Review of Systems - Review of Systems All systems: reviewed and no additional remarkable complaints except - Gastrointestinal Gastrointestinal: Abdominal Pain, Hematochezia Past Patient History - Infectious Disease Hx of Infectious Diseases: C.diff - Past Medical History & Family History Past Medical History?: No - Past Social History Smoking Status: Never Smoked - MUSCULOSKELETAL/RHEUMATOLOGICAL Hx Falls: No - GASTROINTESTINAL Hx Clostridium Difficile: Yes Hx Liver Failure: Yes (liver cirrhosis) - PSYCHIATRIC Hx Substance Use: No - SURGICAL HISTORY Hx Surgeries: No - ANESTHESIA Hx Anesthesia: No Meds Allergies/Adverse Reactions: Allergies Allergy/AdvReac Type Severity Reaction Status Date / Time No Known Allergies Allergy Verified 10/24/17 22:33 - Medications Medications: Current Medications Albumin Human (Albumin Human 25% (12.5 Gm/50 Ml)) 12.5 gm IV Q2H RICHARD Stop: 10/25/17 11:31 Sodium Chloride (Sodium Chloride 0.9%) 1,000 mls @ 75 mls/hr IV [id number] RICHARD Pantoprazole Sodium (Protonix Inj) 40 mg IVP Q12H RICHARD Physical Exam - Constitutional Appears: Other (jaundiced) - Head Exam Head Exam: ATRAUMATIC, NORMAL INSPECTION, NORMOCEPHALIC - Eye Exam Eye Exam: EOMI, Scleral icterus - ENT Exam ENT Exam: Mucous Membranes Dry, Normal Exam - Respiratory Exam Respiratory Exam: Clear to Auscultation Bilateral, NORMAL BREATHING PATTERN - Cardiovascular Exam Cardiovascular Exam: REGULAR RHYTHM - GI/Abdominal Exam GI & Abdominal Exam: Normal Bowel Sounds, Soft, Tenderness (mid/epigastric) - Extremities Exam Extremities exam: Positive for: normal inspection - Neurological Exam Neurological exam: Alert, CN II-XII Intact - Psychiatric Exam Psychiatric exam: Normal Affect, Normal Mood Results - Vital Signs Recent Vital Signs: Last Vital Signs Temp 97.7 F 10/24/17 22:28 Pulse 84 10/25/17 01:08 Resp 11 L 10/25/17 01:08 BP 108/69 10/25/17 01:08 Pulse Ox 100 10/25/17 01:24 - Labs Result Diagrams: 10/24/17 23:01 10/24/17 23:01 Labs: Laboratory Results - last 24 hr 10/24/17 10/24/17 10/24/17 23:01 23:01 23:01 WBC 16.6 H RBC 2.91 L Hgb 11.1 L Hct 31.6 L MCV 108.6 H D MCH 38.2 H MCHC 35.2 RDW 14.4 Plt Count 173 MPV 6.7 L Neut % (Auto) 74.9 Lymph % (Auto) 11.8 L [place] % (Auto) 11.4 H Eos % (Auto) 1.5 Baso % (Auto) 0.4 Neut # (Auto) 12.5 H Lymph # (Auto) 2.0 [place] # (Auto) 1.9 H Eos # (Auto) 0.2 Baso # (Auto) 0.1 PT 17.8 H INR 1.6 APTT 38 H Sodium 133 Potassium 3.7 Chloride 99 Carbon Dioxide 18 L Anion Gap 19 BUN 20 Creatinine 1.2 Est GFR ( Amer) > 60 Est GFR (Non-Af Amer) > 60 Random Glucose 140 H Calcium 8.7 Total Bilirubin 5.5 H AST 72 H D ALT 39 Alkaline Phosphatase 116 Ammonia Troponin I < 0.0120 Total Protein 8.3 Albumin 3.1 L Globulin 5.2 H Albumin/Globulin Ratio 0.6 L Lipase 697 H Alcohol, Quantitative < 10 10/24/17 23:01 WBC RBC Hgb Hct MCV MCH MCHC RDW Plt Count MPV Neut % (Auto) Lymph % (Auto) [place] % (Auto) Eos % (Auto) Baso % (Auto) Neut # (Auto) Lymph # (Auto) [place] # (Auto) Eos # (Auto) Baso # (Auto) PT INR APTT Sodium Potassium Chloride Carbon Dioxide Anion Gap BUN Creatinine Est GFR ( Amer) Est GFR (Non-Af Amer) Random Glucose Calcium Total Bilirubin AST ALT Alkaline Phosphatase Ammonia 88 H Troponin I Total Protein Albumin Globulin Albumin/Globulin Ratio Lipase Alcohol, Quantitative Assessment & Plan (1) GI bleed Assessment and Plan: 56yo M. PMHx ETOH abuse with cirrhosis, c.diff colitis. p/w abdominal pain, hematochezia. Neuro: alert and oriented x 3. hyperammonemia but not altered, will start Rifaximin po, once diarrhea abates, better alternative to lactulose as patient is possibly having recurrent c.diff. Pulm: no acute issues, breathing spontaneously on room air. CV: hypotensive, starting albumin drip. Hem: anemia of chronic disease, f/u h/h with current GI bleed. Renal: no acute issues. NS@75 + albumin@25 Endo: no acute issues. GI: NPO. Uncertain as to location of bleed, started high dose IV protonix empirically. EGD (08/11/17) showed esophagitis, non-bleeding erosive gastropathy, multiple duodenal ulcers, NO esophageal varices. Will need either repeat EGD or colonoscopy, GI consulted. ID: send off stool for c.diff. Patient recently completed course of oral vancomycin on tapered course as outpatient. Possible recurrence and failure of treatment, as it smells like c.diff as per patient's sister who is a nurse. Contact precautions. If positive will start therapy again, with either higher dose, longer course of alternative therapy (Fidaxomicin). Will consult ID if necessary. DVT proph - SCD's, hold a/c with current GI bleed GI proph - protonix IV q12h Code status - full code Critical Care Time spent 45 minutes The documented time is cumulative and includes review of patient data/exams/labs /chart review and examination of the patient on rounds and throughout the day; time is exclusive of any procedures or teaching time. Status: Acute
[2017-10-25 06:14] LABS: BASO % 0.2 % (0.0-2.0); EOS # 0.1 K/uL (0.0-0.7); EOS % 0.9 % (0.0-4.0); LYMPH # 1.7 K/uL (1.0-4.3); LYMPH % 10.2 % (20.0-40.0); MEAN CELL VOLUME 107.7 fL (80.0-94.0); MEAN CORPUSCULAR HEMOGLOBIN 38.5 pg (27.0-31.0); MEAN CORPUSCULAR HGB CONC 35.7 g/dL (33.0-37.0); MEAN PLATELET VOLUME 6.7 fL (7.2-11.7); MONO # 2.5 K/uL (0.0-0.8); MONO % 15.4 % (0.0-10.0); NEUT # 12.1 K/uL (1.8-7.0); NEUT % 73.3 % (50.0-75.0); RBC 2.34 Mil/uL (4.40-5.90); RED CELL DISTRIBUTION WIDTH 14.4 % (11.5-14.5); WHITE BLOOD COUNT 16.5 K/uL (4.8-10.8)
[2017-10-25 06:27] LABS: ALB/GLOB RATIO 0.6 (1.0-2.1); ALBUMIN 2.5 g/dL (3.5-5.0); ALT/SGPT 34 U/L (21-72); AST/SGOT 58 U/L (17-59); BLOOD UREA NITROGEN 18 mg/dL (9-20); CALCIUM 8.2 mg/dl (8.6-10.4); GFR AFRICAN-AMERICAN > 60; GFR NON-AFRICAN AMERICAN > 60
[2017-10-25] MEDS: metroNIDAZOLE IV 500 mg/100 ml 500 MG/100 ML BAG IVPB SCH ×2 (09:00→15:00)
[2017-10-25 09:05] LABS: URINE BILIRUBIN NEGATIVE (NEGATIVE); URINE BLOOD 1+ (NEGATIVE); URINE CLARITY Clear (Clear); URINE COLOR Amber (YELLOW); URINE GLUCOSE (UA) NORMAL (Normal); URINE LEUKOCYTE ESTERASE NEG Leu/uL (Negative); URINE PROTEIN NEGATIVE (NEGATIVE)
[2017-10-25 09:21] LABS: BARBITURATES, UR NEGATIVE (NEGATIVE); OPIATES, UR NEGATIVE (NEGATIVE); PHENCYCLIDINE, UR NEGATIVE (NEGATIVE)
[2017-10-25 09:24] LABS: BENZODIAZEPINES, UR POSITIVE (NEGATIVE)
--- NOTE | 2017-10-25 10:16 | CP.PCM.CON ---
History of Present Illness - History of Present Illness History of Present Illness: Asked by Dr. Lopez for a GI consultation on this patient. 56 year old male with history of ETOH cirrhosis, cdifficile colitis who presents to hospital with complaint of progressive crampy abdominal pain and one episode of hematochezia. He describes generalized crampy abdominal pain, 4/10 intensity, not related to food consumption which started 4 days ago. When symptoms initially began, he also reported one episode of bright red rectal bleeding. He otherwise denies nausea, vomiting, diarrhea, melena, fever/chills, weight loss. He claims to have stopped ETOH consumption since hospital discharge in July. He had an EGD at that time which showed esophagitis, hiatal hernia, shallow duodenal ulcers. No recent NSAID use. Social history: prior ETOH use, non-smoker Family history: reviewed with patient, denies history of GI malignancy Review of Systems - Review of Systems Review of Systems: - All other comprehensive 12 point review of systems performed, negative - Cardiovascular Cardiovascular: absent: Acrocyanosis, Chest Pain, Chest Pain at Rest, Chest Pain with Activity, Claudication, Diaphoresis, Dyspnea, Dyspnea on Exertion, Edema, Irregular Heart Rhythm, Pain Radiating to Arm/Neck/Jaw, Leg Edema, Leg Ulcers, Lightheadedness, Orthopnea, Palpitations, Paroxysmal Nocturnal Dyspnea, Pedal Edema, Radiating Pain, Rapid Heart Rate, Slow Heart Rate, Syncope, Other - Respiratory Respiratory: absent: Cough, Dyspnea, Hemoptysis, Dyspnea on Exertion, Wheezing, Snoring, Stridor, Pain on Inspiration, Chest Congestion, Excessive Mucous Production, Change in Mucous Color, Pain with Coughing, Other - Gastrointestinal Gastrointestinal: Abdominal Pain, Hematochezia - Musculoskeletal Musculoskeletal: absent: Abnormal Gait, Arthralgias, Atrophy, Back Pain, Deformity, Joint Swelling, Limited Range of Motion, Loss of Height, Muscle Cramps, Muscle Weakness, Myalgias, Neck Pain, Numbness, Radiating Pain into Limb , Stiffness, Tingling, Other - Neurological Neurological: absent: Abnormal Gait, Abnormal Hearing, Abnormal Movements, Abnormal Speech, Behavioral Changes, Burning Sensations, Confusion, Convulsions , Disequilibrium, Dizziness, Numbness, Focal Weakness, Frequent Falls, Headaches , Lack of Coordination, Loss of Vision, Memory Loss, Paresthesias, Radicular Pain, Restless Legs, Sensory Deficit, Syncope, Tingling, Tremor, Vertigo, Weakness, Other Visual Disturbances, Other Past Patient History - Infectious Disease Hx of Infectious Diseases: C.diff - Past Medical History & Family History Past Medical History?: No - Past Social History Smoking Status: Never Smoked - MUSCULOSKELETAL/RHEUMATOLOGICAL Hx Falls: Yes - GASTROINTESTINAL Hx Clostridium Difficile: Yes Hx Liver Failure: Yes (liver cirrhosis) - PSYCHIATRIC Hx Substance Use: No - SURGICAL HISTORY Hx Surgeries: No - ANESTHESIA Hx Anesthesia: No Meds Allergies/Adverse Reactions: Allergies Allergy/AdvReac Type Severity Reaction Status Date / Time No Known Allergies Allergy Verified 10/24/17 22:33 - Medications Medications: Current Medications Albumin Human (Albumin Human 25% (12.5 Gm/50 Ml)) 12.5 gm IV Q2H RICHARD Stop: 10/25/17 11:31 Last Admin: 10/25/17 07:41 Dose: 12.5 gm Sodium Chloride (Sodium Chloride 0.9%) 1,000 mls @ 75 mls/hr IV .[id number] RICHARD Last Admin: 10/25/17 01:42 Dose: 75 mls/hr Metronidazole (Flagyl) 500 mg in 100 mls @ 100 mls/hr IVPB Q8H RICHARD PRN Reason: Protocol Aztreonam 1 gm/ Sodium (Chloride) 100 mls @ 100 mls/hr IVPB Q8H RICHARD PRN Reason: Protocol Pantoprazole Sodium (Protonix Inj) 40 mg IVP Q12H RICHARD Rifaximin (Xifaxan) 550 mg PO BID RICHARD PRN Reason: Protocol Physical Exam - Constitutional Appears: Non-toxic, No Acute Distress - Head Exam Head Exam: NORMAL INSPECTION - Eye Exam Eye Exam: EOMI, Scleral icterus - ENT Exam ENT Exam: Mucous Membranes Dry - Respiratory Exam Respiratory Exam: Clear to Auscultation Bilateral - Cardiovascular Exam Cardiovascular Exam: +S1, +S2 - GI/Abdominal Exam GI & Abdominal Exam: Normal Bowel Sounds, Soft Additional comments: non tender to palpation in four quadrants no palpable hepato/splenomegaly - Extremities Exam Extremities exam: Positive for: normal inspection - Neurological Exam Neurological exam: Alert, CN II-XII Intact, Oriented x3, Reflexes Normal - Psychiatric Exam Psychiatric exam: Normal Affect, Normal Mood - Skin Additional comments: +jaundice Results - Vital Signs Recent Vital Signs: Last Vital Signs Temp 98.8 F 10/25/17 08:40 Pulse 84 10/25/17 08:40 Resp 18 10/25/17 08:40 BP 93/57 L 10/25/17 08:40 Pulse Ox 94 L 10/25/17 07:00 - Labs Result Diagrams: 10/25/17 05:56 10/25/17 05:56 Labs: Laboratory Results - last 24 hr 10/24/17 10/24/17 10/24/17 23:01 23:01 23:01 WBC 16.6 H RBC 2.91 L Hgb 11.1 L Hct 31.6 L MCV 108.6 H D MCH 38.2 H MCHC 35.2 RDW 14.4 Plt Count 173 MPV 6.7 L Neut % (Auto) 74.9 Lymph % (Auto) 11.8 L [place] % (Auto) 11.4 H Eos % (Auto) 1.5 Baso % (Auto) 0.4 Neut # (Auto) 12.5 H Lymph # (Auto) 2.0 [place] # (Auto) 1.9 H Eos # (Auto) 0.2 Baso # (Auto) 0.1 PT 17.8 H INR 1.6 APTT 38 H Sodium 133 Potassium 3.7 Chloride 99 Carbon Dioxide 18 L Anion Gap 19 BUN 20 Creatinine 1.2 Est GFR ( Amer) > 60 Est GFR (Non-Af Amer) > 60 Random Glucose 140 H Lactic Acid Calcium 8.7 Phosphorus Magnesium Total Bilirubin 5.5 H AST 72 H D ALT 39 Alkaline Phosphatase 116 Ammonia Troponin I < 0.0120 Total Protein 8.3 Albumin 3.1 L Globulin 5.2 H Albumin/Globulin Ratio 0.6 L Lipase 697 H Carcinoembryonic Ag Urine Color Urine Clarity Urine pH Ur Specific [place] Urine Protein Urine Glucose (UA) Urine Ketones Urine Blood Urine Nitrate Urine Bilirubin Urine Urobilinogen Ur Leukocyte Esterase Urine WBC (Auto) Urine RBC (Auto) Urine Opiates Screen Urine Methadone Screen Ur Barbiturates Screen Ur Phencyclidine Scrn Ur Amphetamines Screen U Benzodiazepines Scrn U Oth Cocaine Metabols U Cannabinoids Screen Alcohol, Quantitative < 10 C. difficile Ag & Toxin HIV 1&2 Antibody Screen Blood Type Antibody Screen 10/24/17 10/25/17 10/25/17 23:01 00:47 05:56 WBC 16.5 H RBC 2.34 L Hgb 9.0 L D Hct 25.2 L MCV 107.7 H MCH 38.5 H MCHC 35.7 RDW 14.4 Plt Count 123 L D MPV 6.7 L Neut % (Auto) 73.3 Lymph % (Auto) 10.2 L [place] % (Auto) 15.4 H Eos % (Auto) 0.9 Baso % (Auto) 0.2 Neut # (Auto) 12.1 H Lymph # (Auto) 1.7 [place] # (Auto) 2.5 H Eos # (Auto) 0.1 Baso # (Auto) 0.0 PT INR APTT Sodium Potassium Chloride Carbon Dioxide Anion Gap BUN Creatinine Est GFR ( Amer) Est GFR (Non-Af Amer) Random Glucose Lactic Acid Calcium Phosphorus Magnesium Total Bilirubin AST ALT Alkaline Phosphatase Ammonia 88 H Troponin I Total Protein Albumin Globulin Albumin/Globulin Ratio Lipase Carcinoembryonic Ag Urine Color Urine Clarity Urine pH Ur Specific [place] Urine Protein Urine Glucose (UA) Urine Ketones Urine Blood Urine Nitrate Urine Bilirubin Urine Urobilinogen Ur Leukocyte Esterase Urine WBC (Auto) Urine RBC (Auto) Urine Opiates Screen Urine Methadone Screen Ur Barbiturates Screen Ur Phencyclidine Scrn Ur Amphetamines Screen U Benzodiazepines Scrn U Oth Cocaine Metabols U Cannabinoids Screen Alcohol, Quantitative C. difficile Ag & Toxin Positive H HIV 1&2 Antibody Screen Blood Type Antibody Screen 10/25/17 10/25/17 10/25/17 05:56 05:56 05:56 WBC RBC Hgb Hct MCV MCH MCHC RDW Plt Count MPV Neut % (Auto) Lymph % (Auto) [place] % (Auto) Eos % (Auto) Baso % (Auto) Neut # (Auto) Lymph # (Auto) [place] # (Auto) Eos # (Auto) Baso # (Auto) PT INR APTT 40 H Sodium 133 Potassium 3.8 Chloride 103 Carbon Dioxide 20 L Anion Gap 14 BUN 18 Creatinine 1.0 Est GFR ( Amer) > 60 Est GFR (Non-Af Amer) > 60 Random Glucose 105 Lactic Acid Calcium 8.2 L Phosphorus 3.3 Magnesium 1.7 Total Bilirubin 4.4 H AST 58 ALT 34 Alkaline Phosphatase 96 Ammonia Troponin I Total Protein 6.9 Albumin 2.5 L Globulin 4.4 H Albumin/Globulin Ratio 0.6 L Lipase Carcinoembryonic Ag 5.2 H Urine Color Urine Clarity Urine pH Ur Specific [place] Urine Protein Urine Glucose (UA) Urine Ketones Urine Blood Urine Nitrate Urine Bilirubin Urine Urobilinogen Ur Leukocyte Esterase Urine WBC (Auto) Urine RBC (Auto) Urine Opiates Screen Urine Methadone Screen Ur Barbiturates Screen Ur Phencyclidine Scrn Ur Amphetamines Screen U Benzodiazepines Scrn U Oth Cocaine Metabols U Cannabinoids Screen Alcohol, Quantitative C. difficile Ag & Toxin HIV 1&2 Antibody Screen Blood Type A POSITIVE Antibody Screen Negative 10/25/17 10/25/17 10/25/17 08:48 08:48 08:48 WBC RBC Hgb Hct MCV MCH MCHC RDW Plt Count MPV Neut % (Auto) Lymph % (Auto) [place] % (Auto) Eos % (Auto) Baso % (Auto) Neut # (Auto) Lymph # (Auto) [place] # (Auto) Eos # (Auto) Baso # (Auto) PT INR APTT Sodium Potassium Chloride Carbon Dioxide Anion Gap BUN Creatinine Est GFR ( Amer) Est GFR (Non-Af Amer) Random Glucose Lactic Acid 1.5 Calcium Phosphorus Magnesium Total Bilirubin AST ALT Alkaline Phosphatase Ammonia Troponin I Total Protein Albumin Globulin Albumin/Globulin Ratio Lipase Carcinoembryonic Ag Urine Color [place] Urine Clarity Clear Urine pH 6.0 Ur Specific [place] 1.049 H Urine Protein Negative Urine Glucose (UA) Normal Urine Ketones Negative Urine Blood 1+ H Urine Nitrate Negative Urine Bilirubin Negative Urine Urobilinogen 4.0 Ur Leukocyte Esterase Neg Urine WBC (Auto) 2 Urine RBC (Auto) 2 Urine Opiates Screen Negative Urine Methadone Screen Negative Ur Barbiturates Screen Negative Ur Phencyclidine Scrn Negative Ur Amphetamines Screen Negative U Benzodiazepines Scrn Positive U Oth Cocaine Metabols Negative U Cannabinoids Screen Negative Alcohol, Quantitative C. difficile Ag & Toxin HIV 1&2 Antibody Screen Blood Type Antibody Screen 10/25/17 08:48 WBC RBC Hgb Hct MCV MCH MCHC RDW Plt Count MPV Neut % (Auto) Lymph % (Auto) [place] % (Auto) Eos % (Auto) Baso % (Auto) Neut # (Auto) Lymph # (Auto) [place] # (Auto) Eos # (Auto) Baso # (Auto) PT INR APTT Sodium Potassium Chloride Carbon Dioxide Anion Gap BUN Creatinine Est GFR ( Amer) Est GFR (Non-Af Amer) Random Glucose Lactic Acid Calcium Phosphorus Magnesium Total Bilirubin AST ALT Alkaline Phosphatase Ammonia Troponin I Total Protein Albumin Globulin Albumin/Globulin Ratio Lipase Carcinoembryonic Ag Urine Color Urine Clarity Urine pH Ur Specific [place] Urine Protein Urine Glucose (UA) Urine Ketones Urine Blood Urine Nitrate Urine Bilirubin Urine Urobilinogen Ur Leukocyte Esterase Urine WBC (Auto) Urine RBC (Auto) Urine Opiates Screen Urine Methadone Screen Ur Barbiturates Screen Ur Phencyclidine Scrn Ur Amphetamines Screen U Benzodiazepines Scrn U Oth Cocaine Metabols U Cannabinoids Screen Alcohol, Quantitative C. difficile Ag & Toxin HIV 1&2 Antibody Screen Negative Blood Type Antibody Screen Assessment & Plan - Assessment and Plan (Free Text) Assessment: ETOH cirrhosis, decompensated - admission MELD 20 Anemia, rectal bleeding History of c-difficile colitis CT imaging reviewed by me showing cirrhotic liver, minimal abdominal ascites, rectal wall thickening in setting of fecal retention Plan: - Patient receiving PRBC transfusion, continue to monitor H/H - Continue with PPI therapy - Continue with antibiotic therapy as per medical team, follow up blood culture results - Follow up stool studies given recent h/o c-difficile colitis - Patient will eventually benefit from elective colonoscopy following resolution of acute symptoms. Will continue to monitor patient clinical course.
[2017-10-25] MEDS: Aztreonam 1 GM in Sodium Chloride 0.9% 100 ML IVPB SCH ×2 (10:25→16:00)
[2017-10-25] MEDS ORDERED: Vancomycin 125 MG/5 ML SOLN (ORAL/RECTAL) PO SCH (14:00)
--- NOTE | 2017-10-25 14:59 | RAD ---
PROCEDURE: CHEST RADIOGRAPH, 1 VIEW HISTORY: Abdominal pain. COMPARISON: Comparison made with prior chest radiograph 09/19/2017 FINDINGS: LUNGS: Resolution previously noted bibasilar atelectasis PLEURA: No pneumothorax or pleural fluid seen. CARDIOVASCULAR: Normal. OSSEOUS STRUCTURES: The multiple old healed right posterolateral rib fractures the again seen No significant abnormalities. VISUALIZED UPPER ABDOMEN: Normal. OTHER FINDINGS: None. IMPRESSION: Resolution previously noted bibasilar atelectasis.
[2017-10-25] MEDS: Vancomycin 125 MG/5 ML SOLN (ORAL/RECTAL) PO SCH ×2 (15:00→18:16)
[2017-10-26] MEDS: Aztreonam 1 GM in Sodium Chloride 0.9% 100 ML IVPB SCH ×4 (00:15→23:54)
[2017-10-26] MEDS: metroNIDAZOLE IV 500 mg/100 ml 500 MG/100 ML BAG IVPB SCH ×4 (00:16→23:53)
--- NOTE | 2017-10-26 06:31 | CON ---
DATE: 10/25/2017 LOCATION: ICU 14, bed A. HISTORY OF PRESENT ILLNESS: This is a 56-year-old male, who was admitted to the hospital through the emergency room with a complaint of abdominal pain, crampy in nature with recurrent bloody bowel movement, which somewhat subsided since admission, but not completely. No reported hematemesis, chills or fever, or chest pain. PAST MEDICAL HISTORY: Including mainly: 1. Alcoholism with alcoholic liver disease. 2. Liver cirrhosis. 3. 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 4. Peptic ulcer disease. FAMILY HISTORY: No specific related GI disorder. SOCIAL HISTORY: Positive for excessive alcohol intake with cigarette smoking. MEDICATIONS: The rest of the medications unclear. Current medication, medication list post admission is seen. After being admitted to the hospital, the patient was found to have white blood cells of 16.6, hemoglobin 11.1, hematocrit 31.6, normal platelet count with PT of 17.8, and PTT of 38, for which I directed the ICU staff to transfuse 2 units of fresh frozen plasma. Also his CO2 content was low 18 indicative of metabolic acidosis. Blood glucose level 140. AST 72, total bilirubin 5.5, with normal ALT and alkaline phosphatase indicative of alcohol-induced abnormal liver function tests. Albumin of 3.1, lipase 697, with ammonia level of 88. PHYSICAL EXAMINATION: GENERAL: A 56-year-old male, somewhat awake, alert. VITAL SIGNS: Afebrile, with pulse of 80, respiratory rate of 12 to 14, blood pressure 110/64. HEENT: Showed pale, dry mucous membranes with bilateral icteric sclerae. LYMPH NODE: No lymphadenitis or lymphadenopathy. HEART: Positive S1 and S2. ABDOMEN: Soft, with slight generalized tenderness. No mass or organomegaly. No rebound tenderness or guarding. RECTAL: Positive tone. Positive for all the blood. EXTREMITIES: Without significant edema, clubbing, or cyanosis. NEUROLOGIC: No reported new neurological deficits. However, the patient has very slight upper extremities mild tremors appreciated. IMPRESSION: 1. Alcoholism with alcoholic liver disease. 2. Abnormal liver function tests, most likely secondary to above. 3. Gastrointestinal bleeding, upper versus lower. 4. Coagulopathy secondary to above. 5. Rule out upper gastrointestinal malignancy. 6. To rule out recurrent pseudomembranous colitis. SUGGESTIONS: 1. Agree with your plan. 2. Blood transfusions to get hemoglobin around 10 gm%. 3. Proton pump inhibitor. 4. Correct underlying coagulopathy. 5. Endoscopic evaluation of upper and lower GI tract as needed. 6. Surgical consultation. 7. Further recommendations to follow and the cancer markers to be ordered after sectional abdominal and pelvic scan to be performed. Thank you for letting me participate in your patient's case management. Maritza Azar MD
[2017-10-26 06:37] LABS: BASO # 0.1 K/uL (0.0-0.2); BASO % 0.7 % (0.0-2.0); EOS # 0.6 K/uL (0.0-0.7); EOS % 4.3 % (0.0-4.0); HEMOGLOBIN 10.1 g/dL (12.0-18.0); LYMPH # 1.7 K/uL (1.0-4.3); LYMPH % 11.2 % (20.0-40.0); MEAN CELL VOLUME 102.5 fL (80.0-94.0); MEAN CORPUSCULAR HEMOGLOBIN 36.8 pg (27.0-31.0); MEAN CORPUSCULAR HGB CONC 35.9 g/dL (33.0-37.0); MEAN PLATELET VOLUME 6.4 fL (7.2-11.7); MONO # 1.7 K/uL (0.0-0.8); MONO % 11.5 % (0.0-10.0); NEUT # 10.8 K/uL (1.8-7.0); NEUT % 72.3 % (50.0-75.0); RBC 2.75 Mil/uL (4.40-5.90); RED CELL DISTRIBUTION WIDTH 18.6 % (11.5-14.5); WHITE BLOOD COUNT 14.9 K/uL (4.8-10.8)
[2017-10-26 07:05] LABS: ALB/GLOB RATIO 0.6 (1.0-2.1); ALBUMIN 2.4 g/dL (3.5-5.0); ALT/SGPT 33 U/L (21-72); AST/SGOT 46 U/L (17-59); BLOOD UREA NITROGEN 16 mg/dL (9-20); CALCIUM 8.1 mg/dl (8.6-10.4); GFR AFRICAN-AMERICAN > 60; GFR NON-AFRICAN AMERICAN > 60
[2017-10-26] MEDS: Sodium Chloride 0.9% 1,000 ML IV SCH (07:14)
[2017-10-26] MEDS ORDERED: Dextrose 5%/Lactated Ringer's 1,000 ML IV SCH (08:30)
[2017-10-26] MEDS: Vancomycin 125 MG/5 ML SOLN (ORAL/RECTAL) PO SCH ×4 (09:23→22:58)
[2017-10-26] MEDS: Lactated Ringer's 1,000 ML IV SCH ×3 (09:29→23:55)
--- NOTE | 2017-10-26 09:41 | CP.PCM.PN ---
Subjective - Date & Time of Evaluation Date of Evaluation: 10/26/17 Time of Evaluation: 09:36 - Subjective Subjective: Patient seen and examined, resting in bed comfortably, patient sister at bedside. No acute events overnight, he denies abdominal pain, nausea, vomiting , fever/chills. He had one liquid brown colored bowel movement earlier this morning, no recurrent rectal bleeding noted. Tolerating PO liquids without difficulty. 12 point review of systems performed, negative aside from mentioned above. Objective - Vital Signs/Intake and Output Vital Signs (last 24 hours): Temp Pulse Resp BP Pulse Ox 98 F 87 18 91/60 L 100 10/26/17 08:00 10/26/17 08:29 10/26/17 08:29 10/26/17 08:29 10/26/17 08:29 Intake and Output: 10/26/17 10/26/17 06:59 18:59 Intake Total 1410 150 Output Total 200 200 Balance 1210 -50 - Medications Medications: Current Medications Metronidazole (Flagyl) 500 mg in 100 mls @ 100 mls/hr IVPB Q8H RICHARD PRN Reason: Protocol Last Admin: 10/26/17 09:00 Dose: 100 mls/hr Aztreonam 1 gm/ Sodium (Chloride) 100 mls @ 100 mls/hr IVPB Q8H RICHARD PRN Reason: Protocol Last Admin: 10/26/17 09:00 Dose: 100 mls/hr Lactated Ringer's (Lactated Ringer's) 1,000 mls @ 150 mls/hr IV .Q6H40M [facility] Last Admin: 10/26/17 09:29 Dose: 150 mls/hr Pantoprazole Sodium (Protonix Inj) 40 mg IVP Q12H [facility] Last Admin: 10/25/17 10:24 Dose: 40 mg Rifaximin (Xifaxan) 550 mg PO BID RICAHRD PRN Reason: Protocol Last Admin: 10/26/17 09:29 Dose: 550 mg Vancomycin HCl (Vancocin (Oral Or Rectal Use)) 125 mg PO QID [facility] Stop: 11/04/17 14:01 Last Admin: 10/26/17 09:23 Dose: 125 mg - Labs Labs: 10/26/17 06:34 10/26/17 06:34 PT 17.8 SECONDS (9.7-12.2) H 10/24/17 23:01 INR 1.6 10/24/17 23:01 APTT 40 SECONDS (21-34) H 10/25/17 05:56 - Constitutional Appears: Non-toxic, No Acute Distress - Head Exam Head Exam: NORMAL INSPECTION - Eye Exam Eye Exam: EOMI, Scleral icterus - ENT Exam ENT Exam: Mucous Membranes Moist - Respiratory Exam Respiratory Exam: Clear to Ausculation Bilateral - Cardiovascular Exam Cardiovascular Exam: +S1, +S2 - GI/Abdominal Exam GI & Abdominal Exam: Soft, Normal Bowel Sounds Additional comments: non tender to palpation in four quadrants - Extremities Exam Extremities Exam: Normal Inspection - Skin Additional comments: +jaundice Assessment and Plan - Assessment and Plan (Free Text) Assessment: ETOH decompensated cirrhosis Anemia Rectal bleeding, resolved - cdifficile associated colitis Plan: - Advance diet to low sodium as tolerated - Continue with PO vancomycin therapy for treatment of c-difficile associated colitis - No clinical indication for additional IV antibiotic therapy, would discontinue - Follow up stool studies - Would hold off on lactulose therapy given ongoing diarrhea, continue with xifaxan for HE prevention - Patient will eventually require elective outpatient colonoscopy with Dr. Plata (last procedure nearly 7 years ago) following resolution of acute symptoms
--- NOTE | 2017-10-26 11:58 | CP.PCM.PN ---
Subjective - Date & Time of Evaluation Date of Evaluation: 10/26/17 Time of Evaluation: 11:52 - Subjective Subjective: Continues to have diarrhea, but no active bleeding, increased ivf to LR at 150mls/hr, which could be titrated with amount of diarrhea. Feeding started by GI, recommend oral flagyl, hold on lactulose due to diarrhea, and rifaximin. Objective - Vital Signs/Intake and Output Vital Signs (last 24 hours): Temp Pulse Resp BP Pulse Ox 98 F 75 15 99/59 L 100 10/26/17 08:00 10/26/17 11:29 10/26/17 11:29 10/26/17 11:00 10/26/17 11:29 Intake and Output: 10/26/17 10/26/17 06:59 18:59 Intake Total 1410 500 Output Total 200 200 Balance 1210 300 - Medications Medications: Current Medications Metronidazole (Flagyl) 500 mg in 100 mls @ 100 mls/hr IVPB Q8H RICHARD PRN Reason: Protocol Last Admin: 10/26/17 09:00 Dose: 100 mls/hr Aztreonam 1 gm/ Sodium (Chloride) 100 mls @ 100 mls/hr IVPB Q8H RICHARD PRN Reason: Protocol Last Admin: 10/26/17 09:00 Dose: 100 mls/hr Lactated Ringer's (Lactated Ringer's) 1,000 mls @ 150 mls/hr IV .Q6H40M [facility] Last Admin: 10/26/17 09:29 Dose: 150 mls/hr Pantoprazole Sodium (Protonix Inj) 40 mg IVP Q12H [facility] Last Admin: 10/25/17 10:24 Dose: 40 mg Rifaximin (Xifaxan) 550 mg PO BID RICHARD PRN Reason: Protocol Last Admin: 10/26/17 09:29 Dose: 550 mg Vancomycin HCl (Vancocin (Oral Or Rectal Use)) 125 mg PO QID RICHARD Stop: 11/04/17 14:01 Last Admin: 10/26/17 09:23 Dose: 125 mg - Labs Labs: 10/26/17 06:34 10/26/17 06:34 PT 17.8 SECONDS (9.7-12.2) H 10/24/17 23:01 INR 1.6 10/24/17 23:01 APTT 40 SECONDS (21-34) H 10/25/17 05:56 - Additional Findings Additional findings: * HEENT PREET * Neck Supple * Chest Clear * CVS regular, no gallop or rub * PA soft, increased bs * Ext no edema * Skin turgor low, clinically dehydrated. * MOBILE [employer]LECT[employer] INST[employer]ER awake oriented x3, moving all ext. Assessment and Plan - Assessment and Plan (Free Text) Assessment: * Rectal bleeding now controlled * Diarrhea, with clinical dehydration increased LR, holding lacutlose * H/o cirrhosis, hence one diarrhea improved will need decrease in ivf * IV abx discontinued by gi, oral prolonged vanco and oral flagyl, xifaximin, * Transfer patient to tele. Plan: See above
--- NOTE | 2017-10-26 12:00 | PN ---
DATE: LOCATION: ICU 15, bed A. SUBJECTIVE: This is a 56 years old male seen for GI consultation as requested by the admitting medical team yesterday in the presence of his sister, re-examined again today, appeared to be somewhat disoriented and semi-confused. It has to be mentioned that I saw an order by Dr. Smart yesterday in the order sheet. Another GI consultation was replaced for another java scala developer after I spoke with the intensive care staff. I contacted the sister, Zelda, to obtain her consent for upper endoscopy today as the patient appeared to be semi-confused and disoriented, most likely related to elevated ammonia level, she informed me the patient was seen before by another java scala developer. At this point, I canceled this upper endoscopy and referred the case to Dr. Smart to to follow up the patient as per the family's request. Of note, I was not informed that another consultation order was as I saw the patient yesterday for GI consultation as requested by the ER, who contacted me for that reason. We will follow up as needed only. I signed off the case for another java scala developer to follow up. Further recommendation to follow as needed. Maritza Azar MD
[2017-10-27] MEDS ORDERED: Lactated Ringer's 1,000 ML IV ONE (00:49)
[2017-10-27] MEDS: Lactated Ringer's 1,000 ML IV SCH ×2 (06:42→10:28)
--- NOTE | 2017-10-27 07:07 | CP.PCM.HP ---
History of Present Illness - History of Present Illness History of Present Illness: Chief complaints: Rectal bleeding HPI: 56-year-old male with a history of liver cirrhosis secondary to alcoholism came to the emergency room with abdominal pain, and a bleeding rectally. Patient started noticing gradually worsening bright red rectal bleeding, and also cramping abdominal pain, especially in the lower abdominal region, associated with the confusion. Patient in the emergency room was evaluated, severe bleeding noted, brought into the intensive care unit In ICU patient was evaluated, being closely monitored, he continues to have a bright red bleeding. Patient was seen by universal grinder set up operator. Received 1 unit of FFP and 2 units of blood transfusion. Currently patient is awake and responding, but he is somewhat confused. He is not in any distress at this time, he denies any chest pain, no nausea, no vomiting noted. Past medical history: Alcoholic liver disease, associated with liver cirrhosis. Surgical history: Patient had upper endoscopy done on 08/11/2015, showing evidence of esophagitis , hiatus hernia, gastropathy, no evidence of varices was noted. Allergies: No known drug allergies Personal history: Patient is a alcoholic, but not drinking now. Used to be a smoker. Family history noncontributory Review of system: He is not in any distress He denies any headache, no visual symptoms. But complaining of abdominal cramps and pain, rectal bleeding. He is somewhat confused, he does not remember where he is On examination: Vital signs reviewed in Blood pressure slightly on the low side Conjunctival injection, jaundiced Regular heart sound Abdomen soft nontender Extremities no pedal edema [employer] alert and awake disoriented to place Labs: Elevated ammonia level noted, and PT/INR Hemoglobin on the low side Assessment/recommendation: 56-year-old male with liver cirrhosis admitted with rectal bleeding. Patient has a coagulopathy secondary to liver disease chronic We'll continue to monitor the PT PTT, CBC GI evaluation. Currently not intended for endoscopy at, as the patient recently had endoscopy. Rectal bleeding underlying varices cannot be ruled out Will continue to monitor the H&H, and blood transfusion as needed. Will follow the patient. No hip area Vitamin K Protonix Present on Admission - Present on Admission Any Indicators Present on Admission: No History of DVT/PE: No History of Uncontrolled Diabetes: No Urinary Catheter: No Decubitus Ulcer Present: No Past Patient History - Infectious Disease Hx of Infectious Diseases: C.diff - Past Medical History & Family History Past Medical History?: No - Past Social History Smoking Status: Never Smoked - MUSCULOSKELETAL/RHEUMATOLOGICAL Hx Falls: Yes - GASTROINTESTINAL Hx Clostridium Difficile: Yes Hx Liver Failure: Yes (liver cirrhosis) - PSYCHIATRIC Hx Substance Use: No - SURGICAL HISTORY Hx Surgeries: No - ANESTHESIA Hx Anesthesia: No Meds Allergies/Adverse Reactions: Allergies Allergy/AdvReac Type Severity Reaction Status Date / Time No Known Allergies Allergy Verified 10/24/17 22:33 Results - Vital Signs Recent Vital Signs: Last Vital Signs Temp 98.4 F 10/27/17 04:00 Pulse 100 H 10/27/17 06:00 Resp 16 10/27/17 06:00 BP 93/57 L 10/27/17 05:29 Pulse Ox 72 L 10/26/17 20:00 - Labs Result Diagrams: 10/26/17 06:34 10/26/17 06:34 Assessment & Plan (1) Liver cirrhosis, alcoholic Status: Acute (2) GI bleed Status: Acute
--- NOTE | 2017-10-27 07:20 | CP.PCM.PN ---
Subjective - Date & Time of Evaluation Date of Evaluation: 10/26/17 Time of Evaluation: 07:18 - Subjective Subjective: Patient's hemoglobin is stable. He is somewhat alert and awake. He denies any chest pain. No shortness of breath and noted Patient is now downgraded to floor. On examination: Vital signs stable. Chest good air entry to the hospital nontender abdomen Assessment and recommendation: 56-year-old male with alcoholic liver disease admitted with GI bleed Status post transfusion. We'll continue to monitor the hemoglobin, transfusion as needed. Patient had endoscopy in July. There was no evidence of gastroesophageal esophageal varices. But will closely monitor again. With respect to the GI if needed Objective - Vital Signs/Intake and Output Vital Signs (last 24 hours): Temp Pulse Resp BP Pulse Ox 98.4 F 100 H 16 93/57 L 72 L 10/27/17 04:00 10/27/17 06:00 10/27/17 06:00 10/27/17 05:29 10/26/17 20:00 Intake and Output: 10/27/17 10/27/17 06:59 18:59 Intake Total 2790 Output Total 200 Balance 2590 - Medications Medications: Current Medications Metronidazole (Flagyl) 500 mg in 100 mls @ 100 mls/hr IVPB Q8H [facility] PRN Reason: Protocol Last Admin: 10/26/17 23:53 Dose: 100 mls/hr Aztreonam 1 gm/ Sodium (Chloride) 100 mls @ 100 mls/hr IVPB Q8H [facility] PRN Reason: Protocol Last Admin: 10/26/17 23:54 Dose: 100 mls/hr Lactated Ringer's (Lactated Ringer's) 1,000 mls @ 150 mls/hr IV .Q6H40M [facility] Last Admin: 10/27/17 06:42 Dose: Not Given Pantoprazole Sodium (Protonix Inj) 40 mg IVP Q12H [facility] Last Admin: 10/26/17 22:57 Dose: 40 mg Pneumococcal Polyvalent Vaccine (Pneumovax 23 Vaccine) 0.5 ml IM .ONCE ONE Stop: 10/28/17 10:01 Rifaximin (Xifaxan) 550 mg PO BID [facility] PRN Reason: Protocol Last Admin: 10/26/17 17:26 Dose: 550 mg Vancomycin HCl (Vancocin (Oral Or Rectal Use)) 125 mg PO QID [facility] Stop: 11/04/17 14:01 Last Admin: 10/26/17 22:58 Dose: 125 mg - Labs Labs: 10/26/17 06:34 10/26/17 06:34 PT 17.8 SECONDS (9.7-12.2) H 10/24/17 23:01 INR 1.6 10/24/17 23:01 APTT 40 SECONDS (21-34) H 10/25/17 05:56 Assessment and Plan (1) Liver cirrhosis, alcoholic Status: Acute (2) GI bleed Status: Acute
--- NOTE | 2017-10-27 07:24 | CP.PCM.PN ---
Subjective - Date & Time of Evaluation Date of Evaluation: 10/27/17 Time of Evaluation: 07:20 - Subjective Subjective: Patient is now more awake and responding. Jaundice noted Patient is having dark-colored stools. He denies any chest pain, no abdominal pain. Making urine Feeling appetite On examination: Vital signs stable. Blood pressure this morning was on the low side Chest good air entry regular hospital nontender abdomen no pedal edema Patient's labs currently pending, I ordered CBC, PT/PTT. Patient was given 500 mL of normal saline bolus for the blood pressure Assessment and recommendation: 56-year-old male with a history of liver disease admitted with a GI bleed He received a blood transfusion on admission Yesterday he did not have any bleeding, but signwriter he had a blood in the stools. Episodes of intermittent diarrhea also noted We will get a C. difficile again. 2 units of FFP today Transfusion if needed Closely monitor. Objective - Vital Signs/Intake and Output Vital Signs (last 24 hours): Temp Pulse Resp BP Pulse Ox 98.4 F 100 H 16 93/57 L 72 L 10/27/17 04:00 10/27/17 06:00 10/27/17 06:00 10/27/17 05:29 10/26/17 20:00 Intake and Output: 10/27/17 10/27/17 06:59 18:59 Intake Total 2790 Output Total 200 Balance 2590 - Medications Medications: Current Medications Metronidazole (Flagyl) 500 mg in 100 mls @ 100 mls/hr IVPB Q8H [facility] PRN Reason: Protocol Last Admin: 10/26/17 23:53 Dose: 100 mls/hr Aztreonam 1 gm/ Sodium (Chloride) 100 mls @ 100 mls/hr IVPB Q8H [facility] PRN Reason: Protocol Last Admin: 10/26/17 23:54 Dose: 100 mls/hr Lactated Ringer's (Lactated Ringer's) 1,000 mls @ 150 mls/hr IV .Q6H40M [facility] Last Admin: 10/27/17 06:42 Dose: Not Given Pantoprazole Sodium (Protonix Inj) 40 mg IVP Q12H [facility] Last Admin: 10/26/17 22:57 Dose: 40 mg Pneumococcal Polyvalent Vaccine (Pneumovax 23 Vaccine) 0.5 ml IM .ONCE ONE Stop: 10/28/17 10:01 Rifaximin (Xifaxan) 550 mg PO BID [facility] PRN Reason: Protocol Last Admin: 10/26/17 17:26 Dose: 550 mg Vancomycin HCl (Vancocin (Oral Or Rectal Use)) 125 mg PO QID [facility] Stop: 11/04/17 14:01 Last Admin: 10/26/17 22:58 Dose: 125 mg - Labs Labs: 10/26/17 06:34 10/26/17 06:34 PT 17.8 SECONDS (9.7-12.2) H 10/24/17 23:01 INR 1.6 10/24/17 23:01 APTT 40 SECONDS (21-34) H 10/25/17 05:56 Assessment and Plan (1) Liver cirrhosis, alcoholic Status: Acute (2) GI bleed Status: Acute
[2017-10-27 08:05] LABS: BASO # 0.1 K/uL (0.0-0.2); BASO % 0.4 % (0.0-2.0); EOS # 0.8 K/uL (0.0-0.7); EOS % 5.9 % (0.0-4.0); LYMPH # 2.3 K/uL (1.0-4.3); LYMPH % 16.3 % (20.0-40.0); MEAN CELL VOLUME 103.4 fL (80.0-94.0); MEAN CORPUSCULAR HEMOGLOBIN 36.6 pg (27.0-31.0); MEAN CORPUSCULAR HGB CONC 35.4 g/dL (33.0-37.0); MEAN PLATELET VOLUME 6.9 fL (7.2-11.7); MONO # 1.9 K/uL (0.0-0.8); MONO % 13.6 % (0.0-10.0); NEUT % 63.8 % (50.0-75.0); RBC 1.48 Mil/uL (4.40-5.90); RED CELL DISTRIBUTION WIDTH 18.2 % (11.5-14.5); WHITE BLOOD COUNT 14.1 K/uL (4.8-10.8)
--- NOTE | 2017-10-27 08:11 | CP.PCM.PN ---
Subjective - Date & Time of Evaluation Date of Evaluation: 10/27/17 Time of Evaluation: 07:00 - Subjective Subjective: PGY4 GI Follow-up Pt has bloody BM overnight, BRB as per RN denies any abd pain +appetite +Flatus Denies any CP or SOB ROS 12 point ROS conducted, neg other than above Objective - Vital Signs/Intake and Output Vital Signs (last 24 hours): Temp Pulse Resp BP Pulse Ox 98.1 F 99 H 16 70/34 L 100 10/27/17 07:29 10/27/17 08:05 10/27/17 08:00 10/27/17 07:46 10/27/17 08:00 Intake and Output: 10/27/17 10/27/17 06:59 18:59 Intake Total 2790 450 Output Total 200 0 Balance 2590 450 - Medications Medications: Current Medications Metronidazole (Flagyl) 500 mg in 100 mls @ 100 mls/hr IVPB Q8H [facility] PRN Reason: Protocol Last Admin: 10/26/17 23:53 Dose: 100 mls/hr Lactated Ringer's (Lactated Ringer's) 1,000 mls @ 150 mls/hr IV .Q6H40M [facility] Last Admin: 10/27/17 06:42 Dose: Not Given Pantoprazole Sodium (Protonix Inj) 40 mg IVP Q12H [facility] Last Admin: 10/26/17 22:57 Dose: 40 mg Pneumococcal Polyvalent Vaccine (Pneumovax 23 Vaccine) 0.5 ml IM .ONCE ONE Stop: 10/28/17 10:01 Rifaximin (Xifaxan) 550 mg PO BID [facility] PRN Reason: Protocol Last Admin: 10/26/17 17:26 Dose: 550 mg Vancomycin HCl (Vancocin (Oral Or Rectal Use)) 125 mg PO QID [facility] Stop: 11/04/17 14:01 Last Admin: 10/26/17 22:58 Dose: 125 mg - Labs Labs: 10/26/17 06:34 10/26/17 06:34 PT 17.8 SECONDS (9.7-12.2) H 10/24/17 23:01 INR 1.6 10/24/17 23:01 APTT 40 SECONDS (21-34) H 10/25/17 05:56 - Constitutional Appears: Well, No Acute Distress, Confused - Head Exam Head Exam: ATRAUMATIC, NORMOCEPHALIC - Eye Exam Eye Exam: Normal appearance - ENT Exam ENT Exam: Mucous Membranes Moist - Respiratory Exam Respiratory Exam: Clear to Ausculation Bilateral, NORMAL BREATHING PATTERN. absent: Rales, Rhonchi, Wheezes, Respiratory Distress - Cardiovascular Exam Cardiovascular Exam: REGULAR RHYTHM, +S1, +S2 - GI/Abdominal Exam GI & Abdominal Exam: Soft, Normal Bowel Sounds. absent: Distended, Firm, Guarding, Rigid, Tenderness, Hypoactive Bowel Sounds, Organomegaly - Rectal Exam Rectal Exam: Bloody Stool - Extremities Exam Extremities Exam: absent: Joint Swelling, Pedal Edema - Neurological Exam Neurological Exam: Alert, Awake, Oriented x3 - Psychiatric Exam Psychiatric exam: Normal Affect, Normal Mood - Skin Skin Exam: Dry, Intact, Normal Color, Warm Assessment and Plan - Assessment and Plan (Free Text) Assessment: Abel Cadena is a 56M w/ hx of Cirrhosis 2/2 ETOH, HTN, HE who presented to the ER due to rectal bleeding ETOH decompensated cirrhosis; MELD 26, Child-byrne Class C Anemia Rectal bleeding, resolved - cdifficile associated colitis vs diverticular Plan: - NPO for now - repeat hgb 5.4 in the AM - transfuse for hgb > 7, will order 2 units of PRBC for now and recommend 2 on hold - Continue with PO vancomycin therapy for treatment of c-difficile associated colitis - No clinical indication for additional IV antibiotic therapy, would discontinue - Follow up stool studies - start octreotide 50mcg bolus and drip at 50mcg/hr - EGD today - NPO after midnight, for probable colonoscopy and EGD -daily LFTs and INR for MELD D/W Dr. Plata
[2017-10-27 08:14] LABS: HEMOGLOBIN 5.4 g/dL (12.0-18.0)
[2017-10-27 08:19] LABS: INR 2.5; PROTHROMBIN TIME 29.9 SECONDS (9.7-12.2)
[2017-10-27 08:22] LABS: ALB/GLOB RATIO 0.6 (1.0-2.1); ALBUMIN 1.7 g/dL (3.5-5.0); ALT/SGPT 36 U/L (21-72); AST/SGOT 40 U/L (17-59); BLOOD UREA NITROGEN 17 mg/dL (9-20); CALCIUM 7.4 mg/dl (8.6-10.4); GFR AFRICAN-AMERICAN > 60; GFR NON-AFRICAN AMERICAN > 60
--- NOTE | 2017-10-27 08:45 | CP.CCUPN ---
CCU Subjective - Physician Review Subjective (Free Text): 10/27/17 08:43 Patient seen and examined. Patient has had bloody bowel movement overnight with sharp drop in hemoglobin. Continues to have diarrhea. CCU Objective - Vital Signs / Intake & Output Vital Signs (Last 4 hours): Vital Signs Temp Pulse Resp BP Pulse Ox 10/27/17 08:15 99 H 10/27/17 08:05 99 H 10/27/17 08:00 99 H 16 100 10/27/17 07:46 101 H 16 70/34 L 100 10/27/17 07:29 98.1 F 101 H 15 76/49 L 10/27/17 07:00 102 H 14 10/27/17 06:29 103 H 16 82/49 L 10/27/17 06:00 100 H 16 10/27/17 05:29 92 H 14 93/57 L 10/27/17 05:00 95 H 14 Intake and Output (Last 8hrs): Intake & Output 10/26/17 10/27/17 10/27/17 22:59 06:59 14:59 Intake Total 1440 1950 450 Output Total 600 0 Balance 840 1950 450 Weight 140 lb Intake: Intake, IV Amount 1200 1950 450 Left Antecubital 600 0 Right Antecubital 600 1950 450 Oral 240 0 0 Output: Urine 600 0 Urine, Voided 600 0 Other: # Voids Urine, Voided 0 0 0 # Bowel Movements 0 0 - Physical Exam Head: Positive for: Atraumatic, Normocephalic Pupils: Positive for: PERRL Extroacular Muscles: Positive for: EOMI Conjunctiva: Positive for: Other (scleral icterus) Mouth: Positive for: Dry Respiratory/Chest: Positive for: Clear to Auscultation. Negative for: Wheezes, Rales, Rhonchi Cardiovascular: Positive for: Regular Rate and Rhythm, Normal S1, S2 Abdomen: Positive for: Normal Bowel Sounds. Negative for: Tenderness, Distention Upper Extremity: Positive for: Normal Inspection Lower Extremity: Positive for: Normal Inspection Neurological: Positive for: GCS=15 Skin: Positive for: Warm, Dry, Pale Psychiatric: Positive for: Alert - Medications Active Medications: Active Medications Generic Name Dose Route Start Last Admin Trade Name Freq PRN Reason Stop Dose Admin Metronidazole 500 mg in 100 mls @ 100 mls/hr 10/25/17 08:00 10/26/17 23:53 Flagyl IVPB 100 mls/hr Q8H [facility] Administration Protocol Lactated Ringer's 1,000 mls @ 150 mls/hr 10/26/17 09:30 10/27/17 06:42 Lactated Ringer's IV Not Given .Q6H40M [facility] Pantoprazole Sodium 40 mg 10/25/17 10:00 10/26/17 22:57 Protonix Inj IVP 40 mg Q12H [facility] Administration Pneumococcal Polyvalent Vaccine 0.5 ml 10/28/17 10:00 Pneumovax 23 Vaccine IM 10/28/17 10:01 .ONCE ONE Rifaximin 550 mg 10/25/17 10:00 10/26/17 17:26 Xifaxan PO 550 mg BID [facility] Administration Protocol Vancomycin HCl 125 mg 10/25/17 14:00 10/26/17 22:58 Vancocin (Oral Or Rectal Use) PO 11/04/17 14:01 125 mg QID [facility] Administration - Patient Studies Lab Studies: Microbiology Studies 10/25/17 00:47 Blood Culture - Preliminary Blood NO GROWTH AFTER 24 HOURS 10/25/17 00:47 Blood Culture - Preliminary Blood NO GROWTH AFTER 24 HOURS 10/25/17 04:13 MRSA Culture (Admit) - Final Naris MRSA NOT DETECTED Lab Studies 10/27/17 10/27/17 10/27/17 Range/Units 08:01 08:01 08:01 WBC 14.1 H (4.8-10.8) K/uL RBC 1.48 L (4.40-5.90) Mil/uL Hgb 5.4 L* D (12.0-18.0) g/dL Hct 15.3 L (35.0-51.0) % MCV 103.4 H (80.0-94.0) fL MCH 36.6 H (27.0-31.0) pg MCHC 35.4 (33.0-37.0) g/dL RDW 18.2 H (11.5-14.5) % Plt Count 87 L (130-400) K/uL MPV 6.9 L (7.2-11.7) fL Neut % (Auto) 63.8 (50.0-75.0) % Lymph % (Auto) 16.3 L (20.0-40.0) % [place] % (Auto) 13.6 H (0.0-10.0) % Eos % (Auto) 5.9 H (0.0-4.0) % Baso % (Auto) 0.4 (0.0-2.0) % Neut # (Auto) 9.0 H (1.8-7.0) K/uL Lymph # (Auto) 2.3 (1.0-4.3) K/uL [place] # (Auto) 1.9 H (0.0-0.8) K/uL Eos # (Auto) 0.8 H (0.0-0.7) K/uL Baso # (Auto) 0.1 (0.0-0.2) K/uL PT 29.9 H* D (9.7-12.2) SECONDS INR 2.5 D APTT 51 H D (21-34) SECONDS Sodium 131 L (132-148) mmol/L Potassium 4.4 (3.6-5.2) mmol/L Chloride 106 (98-107) mmol/L Carbon Dioxide 19 L (22-30) mmol/L Anion Gap 11 (10-20) BUN 17 (9-20) mg/dL Creatinine 0.9 (0.8-1.5) mg/dL Est GFR ( Amer) > 60 Est GFR (Non-Af Amer) > 60 Random Glucose 100 (75-110) mg/dL Calcium 7.4 L (8.6-10.4) mg/dl Total Bilirubin 3.7 H (0.2-1.3) mg/dL AST 40 (17-59) U/L ALT 36 (21-72) U/L Alkaline Phosphatase 65 (38-126) U/L Total Protein 4.7 L (6.3-8.3) g/dL Albumin 1.7 L D (3.5-5.0) g/dL Globulin 2.9 (2.2-3.9) gm/dL Albumin/Globulin Ratio 0.6 L (1.0-2.1) Blood Type Antibody Screen 10/25/17 Range/Units 05:56 WBC (4.8-10.8) K/uL RBC (4.40-5.90) Mil/uL Hgb (12.0-18.0) g/dL Hct (35.0-51.0) % MCV (80.0-94.0) fL MCH (27.0-31.0) pg MCHC (33.0-37.0) g/dL RDW (11.5-14.5) % Plt Count (130-400) K/uL MPV (7.2-11.7) fL Neut % (Auto) (50.0-75.0) % Lymph % (Auto) (20.0-40.0) % [place] % (Auto) (0.0-10.0) % Eos % (Auto) (0.0-4.0) % Baso % (Auto) (0.0-2.0) % Neut # (Auto) (1.8-7.0) K/uL Lymph # (Auto) (1.0-4.3) K/uL [place] # (Auto) (0.0-0.8) K/uL Eos # (Auto) (0.0-0.7) K/uL Baso # (Auto) (0.0-0.2) K/uL PT (9.7-12.2) SECONDS INR APTT (21-34) SECONDS Sodium (132-148) mmol/L Potassium (3.6-5.2) mmol/L Chloride (98-107) mmol/L Carbon Dioxide (22-30) mmol/L Anion Gap (10-20) BUN (9-20) mg/dL Creatinine (0.8-1.5) mg/dL Est GFR ( Amer) Est GFR (Non-Af Amer) Random Glucose (75-110) mg/dL Calcium (8.6-10.4) mg/dl Total Bilirubin (0.2-1.3) mg/dL AST (17-59) U/L ALT (21-72) U/L Alkaline Phosphatase (38-126) U/L Total Protein (6.3-8.3) g/dL Albumin (3.5-5.0) g/dL Globulin (2.2-3.9) gm/dL Albumin/Globulin Ratio (1.0-2.1) Blood Type A POSITIVE Antibody Screen Negative Laboratory Results - last 24 hr 04/28/18 04/30/18 04/30/18 05:56 08:01 08:01 WBC 14.1 H RBC 1.48 L Hgb 5.4 L* D Hct 15.3 L MCV 103.4 H MCH 36.6 H MCHC 35.4 RDW 18.2 H Plt Count 87 L MPV 6.9 L Neut % (Auto) 63.8 Lymph % (Auto) 16.3 L [place] % (Auto) 13.6 H Eos % (Auto) 5.9 H Baso % (Auto) 0.4 Neut # (Auto) 9.0 H Lymph # (Auto) 2.3 [place] # (Auto) 1.9 H Eos # (Auto) 0.8 H Baso # (Auto) 0.1 PT 29.9 H* D INR 2.5 D APTT 51 H D Sodium Potassium Chloride Carbon Dioxide Anion Gap BUN Creatinine Est GFR ( Amer) Est GFR (Non-Af Amer) Random Glucose Calcium Total Bilirubin AST ALT Alkaline Phosphatase Total Protein Albumin Globulin Albumin/Globulin Ratio Blood Type A POSITIVE Antibody Screen Negative 10/27/17 08:01 WBC RBC Hgb Hct MCV MCH MCHC RDW Plt Count MPV Neut % (Auto) Lymph % (Auto) [place] % (Auto) Eos % (Auto) Baso % (Auto) Neut # (Auto) Lymph # (Auto) [place] # (Auto) Eos # (Auto) Baso # (Auto) PT INR APTT Sodium 131 L Potassium 4.4 Chloride 106 Carbon Dioxide 19 L Anion Gap 11 BUN 17 Creatinine 0.9 Est GFR ( Amer) > 60 Est GFR (Non-Af Amer) > 60 Random Glucose 100 Calcium 7.4 L Total Bilirubin 3.7 H AST 40 ALT 36 Alkaline Phosphatase 65 Total Protein 4.7 L Albumin 1.7 L D Globulin 2.9 Albumin/Globulin Ratio 0.6 L Blood Type Antibody Screen Critical Care Progress Note - Nutrition Nutrition: Nutrition Category Date Time Status NPO Diet [DIET] Diets 10/27/17 Breakfast Active Assessment/Plan - Assessment and Plan (Free Text) Assessment: This is a 56 year old male with PMHx cirrhosis (secondary to alcoholism), recurrent C. diff infections who presented with bright red rectal bleeding and diarrhea. He is c.diff antigen and toxin positive. Patient had sharp drop in hemoglobin this morning after bloody bowel movement overnight. He will be transfused and then taken to endoscopy. He had a negative EGD. Patient downgraded to telemetry. GI will try to transfer the patient to [facility] due to elevated MELD score. Neuro Awake, alert, verbal Cardio No active issues Pulm Saturating well on room air GI Assessment: bright red rectal bleeding, cirrhosis secondary to alcoholism NPO diet Protonix 40 mg IV Q12 EGD was negative GI will try to transfer the patient to [facility] due to elevated MELD score Renal No active issues Endocrine No active issues Infectious Disease Assessment: C. diff Vancomycin 125 mg PO QID Prophylaxis Protonix 40 mg IV Q12H VTE contraindicated Disposition: Downgrade to telemetry. GI will try to make arrangements for transfer to [facility]. Discussed with Dr. Lopez
[2017-10-27] MEDS ORDERED: Pantoprazole 80 MG in Sodium Chloride 0.9% 100 ML IVP SCH (09:00)
[2017-10-27] MEDS ORDERED: Phytonadione 10 mg/ml Inj (Adult) SC STA (09:04)
[2017-10-27] MEDS ORDERED: Octreotide 1,250 MCG in Dextrose 5% In Water 250 ML IV SCH (09:15)
[2017-10-27] MEDS ORDERED: Octreotide 1,250 MCG in Dextrose 5% In Water 250 ML SC SCH (09:15)
[2017-10-27] MEDS ORDERED: Pantoprazole 80 MG in Sodium Chloride 0.9% 100 ML IV SCH (09:15)
[2017-10-27] MEDS: metroNIDAZOLE IV 500 mg/100 ml 500 MG/100 ML BAG IVPB SCH ×2 (09:17→17:56)
[2017-10-27] MEDS: Vancomycin 125 MG/5 ML SOLN (ORAL/RECTAL) PO SCH ×4 (09:32→21:48)
[2017-10-27] MEDS ORDERED: Propofol 10 mg/ml Inj (20 ML) ONE (12:52)
[2017-10-27] MEDS ORDERED: Midazolam 2 MG/2 ML VIAL ONE (12:52)
[2017-10-27 18:47] LABS: BASO # 0.1 K/uL (0.0-0.2); BASO % 0.8 % (0.0-2.0); EOS # 0.9 K/uL (0.0-0.7); LYMPH # 1.7 K/uL (1.0-4.3); LYMPH % 17.5 % (20.0-40.0); MEAN CELL VOLUME 96.1 fL (80.0-94.0); MEAN CORPUSCULAR HEMOGLOBIN 34.9 pg (27.0-31.0); MEAN CORPUSCULAR HGB CONC 36.3 g/dL (33.0-37.0); MEAN PLATELET VOLUME 8.9 fL (7.2-11.7); MONO % 10.6 % (0.0-10.0); NEUT # 5.9 K/uL (1.8-7.0); NEUT % 62.1 % (50.0-75.0); RBC 1.88 Mil/uL (4.40-5.90); RED CELL DISTRIBUTION WIDTH 20.1 % (11.5-14.5); WHITE BLOOD COUNT 9.5 K/uL (4.8-10.8)
[2017-10-27 19:01] LABS: PROTHROMBIN TIME 23.1 SECONDS (9.7-12.2)
[2017-10-27 19:06] LABS: HEMOGLOBIN 6.5 g/dL (12.0-18.0)
[2017-10-28] MEDS: Lactated Ringer's 1,000 ML IV SCH ×2 (00:13→09:00)
[2017-10-28 04:31] LABS: BASO % 0.3 % (0.0-2.0); EOS # 0.6 K/uL (0.0-0.7); EOS % 8.7 % (0.0-4.0); HEMOGLOBIN 6.9 g/dL (12.0-18.0); LYMPH # 1.4 K/uL (1.0-4.3); MEAN CELL VOLUME 92.7 fL (80.0-94.0); MEAN CORPUSCULAR HEMOGLOBIN 33.7 pg (27.0-31.0); MEAN CORPUSCULAR HGB CONC 36.4 g/dL (33.0-37.0); MEAN PLATELET VOLUME 6.9 fL (7.2-11.7); MONO # 0.9 K/uL (0.0-0.8); MONO % 11.5 % (0.0-10.0); NEUT # 4.5 K/uL (1.8-7.0); NEUT % 60.5 % (50.0-75.0); NRBC % 0.1 % (0.0-2.0); RBC 2.04 Mil/uL (4.40-5.90); RED CELL DISTRIBUTION WIDTH 20.5 % (11.5-14.5); WHITE BLOOD COUNT 7.4 K/uL (4.8-10.8)
[2017-10-28 04:40] LABS: INR 1.9; PROTHROMBIN TIME 21.6 SECONDS (9.7-12.2)
[2017-10-28] MEDS: metroNIDAZOLE IV 500 mg/100 ml 500 MG/100 ML BAG IVPB SCH ×3 (07:48→15:56)
--- NOTE | 2017-10-28 07:52 | CP.PCM.PN ---
<Ayden Moseley - Last Filed: 10/28/17 16:52> Subjective - Date & Time of Evaluation Date of Evaluation: 10/28/17 Time of Evaluation: 07:00 - Subjective Subjective: PGY 4 GI Follow-up Pt seen and examined bedside Denies any abd pain No rectal bleeding overnight received 1 unit PRBC ROS: 12 point ROS conducted, neg other than above Objective - Vital Signs/Intake and Output Vital Signs (last 24 hours): Temp Pulse Resp BP Pulse Ox 98.5 F 74 14 98/55 L 100 10/28/17 04:00 10/28/17 06:23 10/28/17 06:23 10/28/17 06:23 10/28/17 06:23 Intake and Output: 10/28/17 10/28/17 06:59 18:59 Intake Total 2260 Output Total 1100 Balance 1160 - Medications Medications: Current Medications Albumin Human (Albumin Human 25% (12.5 Gm/50 Ml)) 12.5 gm IV Q12 [facility] Stop: 10/30/17 10:01 Metronidazole (Flagyl) 500 mg in 100 mls @ 100 mls/hr IVPB Q8H [facility] PRN Reason: Protocol Last Admin: 10/28/17 07:48 Dose: 100 mls/hr Lactated Ringer's (Lactated Ringer's) 1,000 mls @ 50 mls/hr IV .Q20H [facility] Pantoprazole Sodium (Protonix Inj) 40 mg IVP DAILY [facility] Phytonadione (Vitamin K Tab) 5 mg PO DAILY [facility] Pneumococcal Polyvalent Vaccine (Pneumovax 23 Vaccine) 0.5 ml IM .ONCE ONE Stop: 10/28/17 10:01 Rifaximin (Xifaxan) 550 mg PO BID [facility] PRN Reason: Protocol Last Admin: 10/27/17 17:57 Dose: 550 mg Vancomycin HCl (Vancocin (Oral Or Rectal Use)) 125 mg PO QID [facility] Stop: 11/04/17 14:01 Last Admin: 10/27/17 21:48 Dose: 125 mg - Labs Labs: 10/28/17 04:24 10/27/17 08:01 PT 21.6 SECONDS (9.7-12.2) H 10/28/17 04:24 INR 1.9 10/28/17 04:24 APTT 33 SECONDS (21-34) 10/28/17 04:24 - Constitutional Appears: Non-toxic, No Acute Distress - Head Exam Head Exam: ATRAUMATIC, NORMOCEPHALIC - Eye Exam Eye Exam: Normal appearance Pupil Exam: NORMAL ACCOMODATION - ENT Exam ENT Exam: Mucous Membranes Moist, Normal Exam - Neck Exam Neck Exam: Normal Inspection - Respiratory Exam Respiratory Exam: Clear to Ausculation Bilateral, NORMAL BREATHING PATTERN. absent: Rales, Rhonchi, Wheezes, Respiratory Distress - Cardiovascular Exam Cardiovascular Exam: REGULAR RHYTHM, +S1, +S2 - GI/Abdominal Exam GI & Abdominal Exam: Soft, Normal Bowel Sounds. 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 Smart <Joseph Smart Y - Last Filed: 10/28/17 17:19> Objective - Vital Signs/Intake and Output Vital Signs (last 24 hours): Temp Pulse Resp BP Pulse Ox 96.8 F L 81 18 109/66 100 10/28/17 16:00 10/28/17 16:00 10/28/17 16:00 10/28/17 15:59 10/28/17 16:00 Intake and Output: 10/28/17 10/28/17 06:59 18:59 Intake Total 2260 2899 Output Total 1100 800 Balance 1160 2099 - Medications Medications: Current Medications Albumin Human (Albumin Human 25% (12.5 Gm/50 Ml)) 12.5 gm IV Q12 [facility] Stop: 10/30/17 10:01 Last Admin: 10/28/17 09:08 Dose: 12.5 gm Metronidazole (Flagyl) 500 mg in 100 mls @ 100 mls/hr IVPB Q8H [facility] PRN Reason: Protocol Last Admin: 10/28/17 15:56 Dose: 100 mls/hr Lactated Ringer's (Lactated Ringer's) 1,000 mls @ 50 mls/hr IV .Q20H [facility] Last Admin: 10/28/17 09:00 Dose: 50 mls/hr Pantoprazole Sodium (Protonix Inj) 40 mg IVP DAILY [facility] Last Admin: 10/28/17 09:09 Dose: 40 mg Phytonadione (Vitamin K Tab) 5 mg PO DAILY [facility] Last Admin: 10/28/17 11:17 Dose: 5 mg Rifaximin (Xifaxan) 550 mg PO BID [facility] PRN Reason: Protocol Last Admin: 10/28/17 09:11 Dose: 550 mg Vancomycin HCl (Vancocin (Oral Or Rectal Use)) 125 mg PO QID [facility] Stop: 11/04/17 14:01 Last Admin: 10/28/17 14:20 Dose: 125 mg - Labs Labs: 10/28/17 04:24 10/28/17 12:41 PT 21.6 SECONDS (9.7-12.2) H 10/28/17 04:24 INR 1.9 10/28/17 04:24 APTT 33 SECONDS (21-34) 10/28/17 04:24 Attending/Attestation - Attestation I have personally seen and examined this patient.: Yes I have fully participated in the care of the patient.: Yes I have reviewed all pertinent clinical information, including history, physical exam and plan: Yes Notes (Text): 10/28/17 17:16 I have seen and examined patient with GI fellow. No acute events overnight, he is seen resting in bed comfortably. He denies abdominal pain, nausea, vomiting , fever/chills. No episodes of rectal bleeding noted overnight or today. Tolerating PO liquids without difficulty. ETOH decompensated cirrhosis Anemia C-difficile colitis Rectal bleeding - Liquid diet as tolerated - Continue to monitor H/H, s/p PRBC transfusion - Continue with PO vancomycin therapy - Will plan for colonoscopy tomorrow given progressive anemia in setting of rectal bleeding, Golytely bowel preparation today, NPO after midnight - Will continue to monitor patient clinical course
[2017-10-28] MEDS: Albumin Human 25% (12.5 gm/50 ml) IV SCH ×2 (09:08→22:32)
[2017-10-28] MEDS: Vancomycin 125 MG/5 ML SOLN (ORAL/RECTAL) PO SCH ×4 (09:10→22:32)
[2017-10-28] MEDS ORDERED: Pneumococcal 23-Valent Vaccine IM ONE (10:00)
[2017-10-28] MEDS ORDERED: Peg-Electrolyte Oral Soln 4L (Golytely) PO ONE (13:00)
[2017-10-28 13:17] LABS: ALB/GLOB RATIO 0.7 (1.0-2.1); ALBUMIN 2.5 g/dL (3.5-5.0); ALT/SGPT 43 U/L (21-72); AST/SGOT 75 U/L (17-59); BLOOD UREA NITROGEN 15 mg/dL (9-20); GFR AFRICAN-AMERICAN > 60; GFR NON-AFRICAN AMERICAN > 60
--- NOTE | 2017-10-28 19:41 | CP.PCM.PN ---
Subjective - Date & Time of Evaluation Date of Evaluation: 10/28/17 Time of Evaluation: 19:39 - Subjective Subjective: The patient. This morning's feeling well. He did not have any bowel movements yet. Liquid diet. Planning to have a colonoscopy tomorrow Objective - Vital Signs/Intake and Output Vital Signs (last 24 hours): Temp Pulse Resp BP Pulse Ox 96.8 F L 110 H 16 109/66 100 10/28/17 16:00 10/28/17 19:00 10/28/17 19:00 10/28/17 15:59 10/28/17 18:00 Intake and Output: 10/28/17 10/29/17 18:59 06:59 Intake Total 3529 310 Output Total 800 Balance 2729 310 - Medications Medications: Current Medications Albumin Human (Albumin Human 25% (12.5 Gm/50 Ml)) 12.5 gm IV Q12 [facility] Stop: 10/30/17 10:01 Last Admin: 10/28/17 09:08 Dose: 12.5 gm Metronidazole (Flagyl) 500 mg in 100 mls @ 100 mls/hr IVPB Q8H [facility] PRN Reason: Protocol Last Admin: 10/28/17 15:56 Dose: 100 mls/hr Lactated Ringer's (Lactated Ringer's) 1,000 mls @ 50 mls/hr IV .Q20H [facility] Last Admin: 10/28/17 09:00 Dose: 50 mls/hr Pantoprazole Sodium (Protonix Inj) 40 mg IVP DAILY [facility] Last Admin: 10/28/17 09:09 Dose: 40 mg Phytonadione (Vitamin K Tab) 5 mg PO DAILY [facility] Last Admin: 10/28/17 11:17 Dose: 5 mg Rifaximin (Xifaxan) 550 mg PO BID [facility] PRN Reason: Protocol Last Admin: 10/28/17 17:47 Dose: 550 mg Vancomycin HCl (Vancocin (Oral Or Rectal Use)) 125 mg PO QID [facility] Stop: 11/04/17 14:01 Last Admin: 10/28/17 17:47 Dose: 125 mg - Labs Labs: 10/28/17 04:24 10/28/17 12:41 PT 21.6 SECONDS (9.7-12.2) H 10/28/17 04:24 INR 1.9 10/28/17 04:24 APTT 33 SECONDS (21-34) 10/28/17 04:24 - Constitutional Appears: No Acute Distress - Eye Exam Eye Exam: PERRL - Respiratory Exam Respiratory Exam: Clear to Ausculation Bilateral - Cardiovascular Exam Cardiovascular Exam: REGULAR RHYTHM - GI/Abdominal Exam GI & Abdominal Exam: Hypoactive Bowel Sounds Assessment and Plan (1) Liver cirrhosis, alcoholic Status: Acute (2) GI bleed Assessment & Plan: GI bleed, stable now. Today patient is at one unit of PRBC FFP For colonoscopy. GI bleed, most likely diverticular bleed, Other causes cannot be ruled out Status: Acute
[2017-10-29] MEDS: metroNIDAZOLE IV 500 mg/100 ml 500 MG/100 ML BAG IVPB SCH ×3 (00:27→16:30)
[2017-10-29] MEDS: Lactated Ringer's 1,000 ML IV SCH ×2 (04:35→11:00)
[2017-10-29 06:32] LABS: BASO % 0.4 % (0.0-2.0); EOS # 0.3 K/uL (0.0-0.7); EOS % 2.9 % (0.0-4.0); HEMOGLOBIN 8.6 g/dL (12.0-18.0); LYMPH # 1.8 K/uL (1.0-4.3); LYMPH % 16.5 % (20.0-40.0); MEAN CELL VOLUME 92.4 fL (80.0-94.0); MEAN CORPUSCULAR HEMOGLOBIN 33.1 pg (27.0-31.0); MEAN CORPUSCULAR HGB CONC 35.9 g/dL (33.0-37.0); MEAN PLATELET VOLUME 6.6 fL (7.2-11.7); MONO # 1.2 K/uL (0.0-0.8); MONO % 11.2 % (0.0-10.0); NEUT # 7.5 K/uL (1.8-7.0); RBC 2.59 Mil/uL (4.40-5.90); RED CELL DISTRIBUTION WIDTH 20.2 % (11.5-14.5); WHITE BLOOD COUNT 10.8 K/uL (4.8-10.8)
[2017-10-29 06:44] LABS: INR 1.9; PROTHROMBIN TIME 22.1 SECONDS (9.7-12.2)
[2017-10-29 07:05] LABS: ALB/GLOB RATIO 0.7 (1.0-2.1); ALBUMIN 2.4 g/dL (3.5-5.0); ALT/SGPT 39 U/L (21-72); AST/SGOT 68 U/L (17-59); BLOOD UREA NITROGEN 13 mg/dL (9-20); CALCIUM 8.2 mg/dl (8.6-10.4); GFR AFRICAN-AMERICAN > 60; GFR NON-AFRICAN AMERICAN > 60
[2017-10-29] MEDS: Albumin Human 25% (12.5 gm/50 ml) IV SCH ×2 (10:02→22:30)
[2017-10-29] MEDS: Vancomycin 125 MG/5 ML SOLN (ORAL/RECTAL) PO SCH ×4 (11:02→22:30)
--- NOTE | 2017-10-29 11:08 | VASCLAB ---
PROCEDURE: Upper Extremity Venous Duplex Exam HISTORY: suspicion of clot. PRIORS: None. TECHNIQUE: Bilateral upper extremity, internal jugular, subclavian, axillary, brachial, ulnar, radial, basilic and upper cephalic veins were evaluated. Flow was assessed with color Doppler, compressibility, assessment of phasic flow and augmentation response. Report prepared by ZAINAB Castillo, RVT FINDINGS: RIGHT: 1. Internal Jugular: 1.1. Compressibility - Fully compressible: Thrombus - None : Flow - Phasic: Augmentation -Normal: Reflux - None. 2. Subclavian: 2.1. Compressibility - Fully compressible: Thrombus - None : Flow - Phasic: Augmentation -Normal: Reflux - None. 3. Axillary: 3.1. Compressibility - Fully compressible: Thrombus - None : Flow - Phasic: Augmentation -Normal: Reflux - None. 4. Brachial: 4.1. Compressibility - Fully compressible: Thrombus - None: Flow - Phasic: Augmentation -Normal: Reflux - None. 5. Ulnar: 5.1. Compressibility - Fully compressible: Thrombus - None: Flow - Phasic: Augmentation -Normal: Reflux - None. 6. Radial: 6.1. Compressibility - Fully compressible: Thrombus - None: Flow - Phasic: Augmentation - Normal: Reflux - None. 7. Cephalic: 7.1. Compressibility - Fully compressible: Thrombus - None: Flow - Phasic: Augmentation -Normal: Reflux - None. 8. Basilic: 8.1. Compressibility - Fully compressible: Thrombus - None: Flow - Phasic: Augmentation -Normal: Reflux - None. LEFT: 1. Internal Jugular: 1.1. Compressibility - Fully compressible: Thrombus - None : Flow - Phasic: Augmentation -Normal: Reflux - None. 2. Subclavian: 2.1. Compressibility - Fully compressible: Thrombus - None : Flow - Phasic: Augmentation -Normal: Reflux - None. 3. Axillary: 3.1. Compressibility - Fully compressible: Thrombus - None : Flow - Phasic: Augmentation -Normal: Reflux - None. 4. Brachial: 4.1. Compressibility - Fully compressible: Thrombus - None: Flow - Phasic: Augmentation -Normal: Reflux - None. 5. Ulnar: 5.1. Compressibility - Fully compressible: Thrombus - None: Flow - Phasic: Augmentation -Normal: Reflux - None. 6. Radial: 6.1. Compressibility - Fully compressible: Thrombus - None: Flow - Phasic: Augmentation - Normal: Reflux - None. 7. Cephalic: 7.1. Compressibility - Fully compressible: Thrombus - None: Flow - Phasic: Augmentation -Normal: Reflux - None. 8. Basilic: 8.1. Compressibility - Fully compressible: Thrombus - None: Flow - Phasic: Augmentation -Normal: Reflux - None. OTHER FINDINGS: Right: None. Left: None. IMPRESSION: Right: No evidence of vein thrombosis of the right upper extremity with excellent venous flow. Normal valve function noted of the right side. Left: No evidence of vein thrombosis of the left upper extremity with excellent venous flow. Normal valve function noted of the left side.
[2017-10-29] MEDS ORDERED: Midazolam 2 MG/2 ML VIAL ONE ×2 (13:35→13:40)
[2017-10-29] MEDS ORDERED: Propofol 10 mg/ml Inj (20 ML) ONE (13:35)
[2017-10-29] MEDS ORDERED: Simethicone 40 mg/0.6 ml Liquid (30 ml) ONE (13:44)
--- NOTE | 2017-10-29 23:14 | CP.PCM.PN ---
Subjective - Date & Time of Evaluation Date of Evaluation: 10/29/17 Time of Evaluation: 23:13 - Subjective Subjective: had colonoscopy and rectal ulcer no active bleeding stable now still on c diff treatment stable now with H and H will repeat will f/u Objective - Vital Signs/Intake and Output Vital Signs (last 24 hours): Temp Pulse Resp BP Pulse Ox 98.3 F 100 H 16 95/68 L 98 10/29/17 20:00 10/29/17 20:00 10/29/17 20:00 10/29/17 20:00 10/29/17 20:00 Intake and Output: 10/29/17 10/30/17 18:59 06:59 Intake Total 700 290 Output Total 300 200 Balance 400 90 - Medications Medications: Current Medications Albumin Human (Albumin Human 25% (12.5 Gm/50 Ml)) 12.5 gm IV Q12 [facility] Stop: 10/30/17 10:01 Last Admin: 10/29/17 22:30 Dose: 12.5 gm Metronidazole (Flagyl) 500 mg in 100 mls @ 100 mls/hr IVPB Q8H [facility] PRN Reason: Protocol Last Admin: 10/29/17 16:30 Dose: 100 mls/hr Pantoprazole Sodium (Protonix Inj) 40 mg IVP DAILY [facility] Last Admin: 10/29/17 10:02 Dose: 40 mg Phytonadione (Vitamin K Tab) 5 mg PO DAILY [facility] Last Admin: 10/29/17 09:27 Dose: Not Given Rifaximin (Xifaxan) 550 mg PO BID [facility] PRN Reason: Protocol Last Admin: 10/29/17 17:15 Dose: 550 mg Vancomycin HCl (Vancocin (Oral Or Rectal Use)) 125 mg PO QID [facility] Stop: 11/04/17 14:01 Last Admin: 10/29/17 22:30 Dose: 125 mg - Labs Labs: 10/29/17 06:25 10/29/17 06:26 PT 22.1 SECONDS (9.7-12.2) H 10/29/17 06:26 INR 1.9 10/29/17 06:26 APTT 38 SECONDS (21-34) H D 10/29/17 06:26 Assessment and Plan (1) Liver cirrhosis, alcoholic Status: Acute (2) GI bleed Status: Acute
[2017-10-30] MEDS: metroNIDAZOLE IV 500 mg/100 ml 500 MG/100 ML BAG IVPB SCH ×2 (00:30→08:20)
[2017-10-30 04:48] VITALS: BP 96/61; PULSE 80; RESP 13; O2SAT 99
[2017-10-30 06:23] LABS: BASO # 0.1 K/uL (0.0-0.2); BASO % 0.7 % (0.0-2.0); EOS # 0.4 K/uL (0.0-0.7); EOS % 5.7 % (0.0-4.0); HEMOGLOBIN 8.3 g/dL (12.0-18.0); LYMPH # 1.8 K/uL (1.0-4.3); LYMPH % 24.1 % (20.0-40.0); MEAN CELL VOLUME 93.6 fL (80.0-94.0); MEAN CORPUSCULAR HEMOGLOBIN 33.4 pg (27.0-31.0); MEAN CORPUSCULAR HGB CONC 35.7 g/dL (33.0-37.0); MEAN PLATELET VOLUME 6.5 fL (7.2-11.7); MONO % 13.2 % (0.0-10.0); NEUT # 4.2 K/uL (1.8-7.0); NEUT % 56.3 % (50.0-75.0); RBC 2.5 Mil/uL (4.40-5.90); RED CELL DISTRIBUTION WIDTH 20.7 % (11.5-14.5); WHITE BLOOD COUNT 7.5 K/uL (4.8-10.8)
[2017-10-30 06:35] LABS: INR 2.1; PROTHROMBIN TIME 24.8 SECONDS (9.7-12.2)
[2017-10-30 06:36] LABS: ALB/GLOB RATIO 0.7 (1.0-2.1); ALBUMIN 2.2 g/dL (3.5-5.0); ALT/SGPT 37 U/L (21-72); AST/SGOT 60 U/L (17-59); BLOOD UREA NITROGEN 12 mg/dL (9-20); CALCIUM 8.3 mg/dl (8.6-10.4); GFR AFRICAN-AMERICAN > 60; GFR NON-AFRICAN AMERICAN > 60
--- NOTE | 2017-10-30 08:10 | CP.PCM.PN ---
Addendum entered and electronically signed by Ayden Moseley DO 10/30/17 14:20: repeat hgb ~9 and stable, no sign of overt GI bleed Ok to d/c from GI standpoint Original Note: <Ayden Moseley - Last Filed: 10/30/17 08:10> Subjective - Date & Time of Evaluation Date of Evaluation: 10/30/17 Time of Evaluation: 07:00 - Subjective Subjective: PGY4 GI Follow-up Note Pt seen and examined bedside No complaints tolerating diet Denies any abd pain, nausea, or vomiting Denies any fever, chills or diaphoresis no overnight events ROS: 12 point ROS conducted, neg other than above Objective - Vital Signs/Intake and Output Vital Signs (last 24 hours): Temp Pulse Resp BP Pulse Ox 98.1 F 80 13 96/61 L 99 10/30/17 04:00 10/30/17 04:00 10/30/17 04:00 10/30/17 04:00 10/30/17 04:00 Intake and Output: 10/30/17 10/30/17 06:59 18:59 Intake Total 340 Output Total 450 Balance -110 - Medications Medications: Current Medications Albumin Human (Albumin Human 25% (12.5 Gm/50 Ml)) 12.5 gm IV Q12 [facility] Stop: 10/30/17 10:01 Last Admin: 10/29/17 22:30 Dose: 12.5 gm Metronidazole (Flagyl) 500 mg in 100 mls @ 100 mls/hr IVPB Q8H [facility] PRN Reason: Protocol Last Admin: 10/30/17 00:30 Dose: 100 mls/hr Pantoprazole Sodium (Protonix Inj) 40 mg IVP DAILY [facility] Last Admin: 10/29/17 10:02 Dose: 40 mg Phytonadione (Vitamin K Tab) 5 mg PO DAILY [facility] Last Admin: 10/29/17 09:27 Dose: Not Given Rifaximin (Xifaxan) 550 mg PO BID [facility] PRN Reason: Protocol Last Admin: 10/29/17 17:15 Dose: 550 mg Vancomycin HCl (Vancocin (Oral Or Rectal Use)) 125 mg PO QID [facility] Stop: 11/04/17 14:01 Last Admin: 10/29/17 22:30 Dose: 125 mg - Labs Labs: 10/30/17 06:16 10/30/17 06:17 PT 24.8 SECONDS (9.7-12.2) H 10/30/17 06:16 INR 2.1 10/30/17 06:16 APTT 40 SECONDS (21-34) H 10/30/17 06:16 - Constitutional Appears: Well, No Acute Distress - Head Exam Head Exam: ATRAUMATIC, NORMOCEPHALIC - Eye Exam Eye Exam: Normal appearance - ENT Exam ENT Exam: Mucous Membranes Moist, Normal Exam - Respiratory Exam Respiratory Exam: Clear to Ausculation Bilateral, NORMAL BREATHING PATTERN. absent: Prolonged Expiratory Phase, Rales, Rhonchi, Wheezes - Cardiovascular Exam Cardiovascular Exam: REGULAR RHYTHM, +S1, +S2 - GI/Abdominal Exam GI & Abdominal Exam: Soft, Normal Bowel Sounds. absent: Distended, Firm, Guarding, Rigid, Tenderness, Hyperactive Bowel Sounds, Organomegaly - Extremities Exam Extremities Exam: absent: Joint Swelling, Pedal Edema - Neurological Exam Neurological Exam: Alert, Awake, Oriented x3 - Psychiatric Exam Psychiatric exam: Normal Affect, Normal Mood - Skin Skin Exam: Dry, Intact, Normal Color, Warm Assessment and Plan - Assessment and Plan (Free Text) Assessment: Abel Cadena is a 56M w/ hx of Cirrhosis 2/2 ETOH, HTN, HE who presented to the ER due to rectal bleeding. S/P Colonoscopy POD #1 x2 deep rectal ulcers. No active bleeding or visible blood vessels. 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 Smart <Joseph Smart - Last Filed: 10/30/17 14:31> Objective - Vital Signs/Intake and Output Vital Signs (last 24 hours): Temp Pulse Resp BP Pulse Ox 98.3 F 80 13 96/61 L 99 05/03/18 12:00 10/30/17 04:00 10/30/17 04:00 10/30/17 04:00 10/30/17 04:00 Intake and Output: 10/30/17 10/30/17 06:59 18:59 Intake Total 340 Output Total 450 Balance -110 - Medications Medications: Current Medications Metronidazole (Flagyl) 500 mg in 100 mls @ 100 mls/hr IVPB Q8H [facility] PRN Reason: Protocol Last Admin: 10/30/17 08:20 Dose: 100 mls/hr Pantoprazole Sodium (Protonix Inj) 40 mg IVP DAILY [facility] Last Admin: 10/30/17 10:41 Dose: 40 mg Phytonadione (Vitamin K Tab) 5 mg PO DAILY [facility] Last Admin: 10/30/17 10:41 Dose: 5 mg Polyethylene Glycol (Miralax) 17 gm PO DAILY [facility] PRN Reason: Constipation Rifaximin (Xifaxan) 550 mg PO BID [facility] PRN Reason: Protocol Last Admin: 10/30/17 10:41 Dose: 550 mg Vancomycin HCl (Vancocin (Oral Or Rectal Use)) 125 mg PO QID [facility] Stop: 11/04/17 14:01 Last Admin: 10/30/17 10:41 Dose: 125 mg - Labs Labs: 10/30/17 06:16 10/30/17 06:17 PT 24.8 SECONDS (9.7-12.2) H 10/30/17 06:16 INR 2.1 10/30/17 06:16 APTT 40 SECONDS (21-34) H 10/30/17 06:16 Attending/Attestation - Attestation I have personally seen and examined this patient.: Yes I have fully participated in the care of the patient.: Yes I have reviewed all pertinent clinical information, including history, physical exam and plan: Yes Notes (Text): 10/30/17 14:28 I have seen and examined patient with GI fellow. No acute events overnight, he is seen sitting at bedside eating lunch. He denies abdominal pain, nausea, vomiting, or recurrent rectal bleeding. ETOH decompensated cirrhosis Anemia C-difficile colitis Rectal bleeding, s/p colonoscopy showing multiple non-bleeding cratered rectal ulcers (biopsies not taken due to coagulopathy), diverticulosis, poor bowel preparation - Low sodium diet as tolerated - Continue with PO Vancomycin to complete 14 day course - Continue with lactulose/xifaxan for HE prevention - Suggest use of stool softner twice daily along with bowel regimen to prevent constipation - LFTs stable, continue to monitor - H/H stable, continue to monitor. From GI standpoint, ok to discharge home with subsequent outpatient follow up with Dr. Jimenez. Will sign off case, please reconsult as necessary, thank you.
[2017-10-30] MEDS ORDERED: POLYETHYLENE GLYCOL 3350 17 GM/Dose PACKET PO SCH (10:00)
[2017-10-30] MEDS ORDERED: POLYETHYLENE GLYCOL 3350 17 GM/Dose PACKET PO PRN (10:26)
[2017-10-30] MEDS: Albumin Human 25% (12.5 gm/50 ml) IV SCH (10:40)
[2017-10-30] MEDS: Vancomycin 125 MG/5 ML SOLN (ORAL/RECTAL) PO SCH ×2 (10:41→14:46)
[2017-10-30 13:35] VITALS: TEMP 98.3
--- NOTE | 2017-10-30 15:44 | CP.PCM.DIS ---
Provider - Provider Date of Admission: 10/25/17 00:47 Attending physician: Pooja Lopez MD Diagnosis - Discharge Diagnosis (1) Liver cirrhosis, alcoholic Status: Acute (2) GI bleed Status: Acute Hospital Course - Lab Results Lab Results: Micro Results 10/25/17 00:47 Blood Blood Culture - Final NO GROWTH AFTER 5 DAYS 10/25/17 00:47 Blood Gram Stain - Final TEST NOT PERFORMED 10/25/17 00:47 Blood Blood Culture - Final NO GROWTH AFTER 5 DAYS 10/25/17 00:47 Blood Gram Stain - Final TEST NOT PERFORMED 10/25/17 04:13 Naris MRSA Culture (Admit) - Final MRSA NOT DETECTED Most Recent Lab Values WBC 7.5 K/uL (4.8-10.8) 10/30/17 06:16 RBC 2.50 Mil/uL (4.40-5.90) L 10/30/17 06:16 Hgb 8.3 g/dL (12.0-18.0) L 10/30/17 06:16 Hct 23.4 % (35.0-51.0) L 10/30/17 06:16 MCV 93.6 fL (80.0-94.0) 10/30/17 06:16 MCH 33.4 pg (27.0-31.0) H 10/30/17 06:16 MCHC 35.7 g/dL (33.0-37.0) 10/30/17 06:16 RDW 20.7 % (11.5-14.5) H 10/30/17 06:16 Plt Count 78 K/uL (130-400) L 10/30/17 06:16 MPV 6.5 fL (7.2-11.7) L 10/30/17 06:16 Neut % (Auto) 56.3 % (50.0-75.0) 10/30/17 06:16 Lymph % (Auto) 24.1 % (20.0-40.0) 10/30/17 06:16 [place] % (Auto) 13.2 % (0.0-10.0) H 10/30/17 06:16 Eos % (Auto) 5.7 % (0.0-4.0) H 10/30/17 06:16 Baso % (Auto) 0.7 % (0.0-2.0) 10/30/17 06:16 Neut # (Auto) 4.2 K/uL (1.8-7.0) 10/30/17 06:16 Lymph # (Auto) 1.8 K/uL (1.0-4.3) 10/30/17 06:16 [place] # (Auto) 1.0 K/uL (0.0-0.8) H 10/30/17 06:16 Eos # (Auto) 0.4 K/uL (0.0-0.7) 10/30/17 06:16 Baso # (Auto) 0.1 K/uL (0.0-0.2) 10/30/17 06:16 Differential Comment 10/27/17 08:01 PT 24.8 SECONDS (9.7-12.2) H 10/30/17 06:16 INR 2.1 10/30/17 06:16 APTT 40 SECONDS (21-34) H 10/30/17 06:16 Sodium 135 mmol/L (132-148) 10/30/17 06:17 Potassium 3.8 mmol/L (3.6-5.2) 10/30/17 06:17 Chloride 108 mmol/L (98-107) H 10/30/17 06:17 Carbon Dioxide 19 mmol/L (22-30) L 10/30/17 06:17 Anion Gap 12 (10-20) 10/30/17 06:17 BUN 12 mg/dL (9-20) 10/30/17 06:17 Creatinine 0.7 mg/dL (0.8-1.5) L 10/30/17 06:17 Est GFR ( Amer) > 60 10/30/17 06:17 Est GFR (Non-Af Amer) > 60 10/30/17 06:17 Random Glucose 80 mg/dL (75-110) 10/30/17 06:17 Lactic Acid 1.5 mmol/L (0.7-2.1) 10/25/17 08:48 Calcium 8.3 mg/dl (8.6-10.4) L 10/30/17 06:17 Phosphorus 2.3 mg/dL (2.5-4.5) L 10/29/17 06:26 Magnesium 1.6 mg/dL (1.6-2.3) 10/29/17 06:26 Total Bilirubin 4.1 mg/dL (0.2-1.3) H 10/30/17 06:17 AST 60 U/L (17-59) H 10/30/17 06:17 ALT 37 U/L (21-72) 10/30/17 06:17 Alkaline Phosphatase 68 U/L (38-126) 10/30/17 06:17 Ammonia 39 umol/L (9-33) H D 10/26/17 06:34 Troponin I < 0.0120 ng/mL (0.00-0.120) 10/24/17 23:01 Total Protein 5.4 g/dL (6.3-8.3) L 10/30/17 06:17 Albumin 2.2 g/dL (3.5-5.0) L 10/30/17 06:17 Globulin 3.1 gm/dL (2.2-3.9) 10/30/17 06:17 Albumin/Globulin Ratio 0.7 (1.0-2.1) L 10/30/17 06:17 Lipase 697 U/L (23-300) H 10/24/17 23:01 Carcinoembryonic Ag 5.2 ng/mL (0-3.0) H 10/25/17 05:56 Urine Color Yanelis (YELLOW) 10/25/17 08:48 Urine Clarity Clear (Clear) 10/25/17 08:48 Urine pH 6.0 (5.0-8.0) 10/25/17 08:48 Ur Specific [place] 1.049 (1.003-1.030) H 10/25/17 08:48 Urine Protein Negative mg/dL (NEGATIVE) 10/25/17 08:48 Urine Glucose (UA) Normal mg/dL (Normal) 10/25/17 08:48 Urine Ketones Negative mg/dL (NEGATIVE) 10/25/17 08:48 Urine Blood 1+ (NEGATIVE) H 10/25/17 08:48 Urine Nitrate Negative (NEGATIVE) 10/25/17 08:48 Urine Bilirubin Negative (NEGATIVE) 10/25/17 08:48 Urine Urobilinogen 4.0 mg/dL (0.2-1.0) 10/25/17 08:48 Ur Leukocyte Esterase Neg Quynh/uL (Negative) 10/25/17 08:48 Urine WBC (Auto) 2 /hpf (0-5) 10/25/17 08:48 Urine RBC (Auto) 2 /hpf (0-3) 10/25/17 08:48 Urine Opiates Screen Negative (NEGATIVE) 10/25/17 08:48 Urine Methadone Screen Negative (NEGATIVE) 10/25/17 08:48 Ur Barbiturates Screen Negative (NEGATIVE) 10/25/17 08:48 Ur Phencyclidine Scrn Negative (NEGATIVE) 10/25/17 08:48 Ur Amphetamines Screen Negative (NEGATIVE) 10/25/17 08:48 U Benzodiazepines Scrn Positive (NEGATIVE) 10/25/17 08:48 U Oth Cocaine Metabols Negative (NEGATIVE) 10/25/17 08:48 U Cannabinoids Screen Negative (NEGATIVE) 10/25/17 08:48 Alcohol, Quantitative < 10 mg/dl (0-10) 10/24/17 23:01 C. difficile Ag & Toxin Positive (NEGATIVE) H 10/28/17 07:39 HIV 1&2 Antibody Screen Negative (NEGATIVE) 10/25/17 08:48 Blood Type A POSITIVE 10/28/17 08:38 Antibody Screen Negative 10/28/17 08:38 Discharge Exam - Head Exam Head Exam: ATRAUMATIC, NORMOCEPHALIC Discharge Plan - Discharge Medications Prescriptions: Spironolactone [Aldactone] 25 mg PO DAILY #30 tablet Furosemide [Lasix] 20 mg PO DAILY #30 tab Vancomycin HCl [Vancocin 125 MG Cap] 125 mg PO TID #90 capsule - Follow Up Plan Condition: FAIR Disposition: HOME/ ROUTINE Instructions: Cirrhosis, Clostridium difficile, Bloody Stools Referrals: Joseph Smart MD [Staff Provider] - Pooja Lopez MD [Staff Provider] -
== END 2017-10-30 15:40 | disposition home or self-care (01) | DRG 895 ==
LOC: C.ER 22:09 → C.9I 10-25 00:47
PROVIDERS: ADMIT Internal Medicine; ATTEND Internal Medicine
PROC: 0DB68ZX Excision of Stomach, Via Natural or Artificial Opening Endoscopic, Diagnostic (ICD-10-PCS; 2017-10-27)
PROC: 0DJD8ZZ Inspection of Lower Intestinal Tract, Via Natural or Artificial Opening Endoscopic (ICD-10-PCS; principal; 2017-10-29 13:30)
DX: A04.72 Enterocolitis due to Clostridium difficile, not specified as recurrent (principal); K70.30 Alcoholic cirrhosis of liver without ascites; D63.8 Anemia in other chronic diseases classified elsewhere; E86.0 Dehydration; F17.210 Nicotine dependence, cigarettes, uncomplicated; I10 Essential (primary) hypertension; K20.9 Esophagitis, unspecified; K29.70 Gastritis, unspecified, without bleeding; K57.90 Diverticulosis of intestine, part unspecified, without perforation or abscess without bleeding; K44.9 Diaphragmatic hernia without obstruction or gangrene; K31.9 Disease of stomach and duodenum, unspecified; K64.8 Other hemorrhoids; Z68.1 Body mass index [BMI] 19.9 or less, adult

== ENCOUNTER 2017-12-15 10:00 | Inpatient (IN) | payer MEDICAID ==
[2017-12-15 10:01] VITALS: BMI 23.4
--- NOTE | 2017-12-15 10:57 | C.PDOC ---
History Of Present Illness Patient is a 56 y/o male who presents to the ED with sister for evaluation of gradual onset of confusion. Sister reports patient has Hx of cirrhosis secondary to alcoholism, and takes Lactulose without compliance. Per sister, patient has been calling people in the middle of the night and dropping things often. Denies any head injury or fall. Patient has no pain or physical complaints at this time. Time Seen by Provider: 12/15/17 10:20 Chief Complaint (Nursing): Altered Mental Status History Per: Patient, Family (sister) History/Exam Limitations: None Onset/Duration Of Symptoms: Sudden Onset Current Symptoms Are (Timing): Still Present Usual Baseline: Alert Oriented Exacerbating Factor(s): Liver Disease (cirrhosis) Recent travel outside of the [place]: No Associated Symptoms: Confused Past Medical History Reviewed: Historical Data, Nursing Documentation, Vital Signs Vital Signs: Last Vital Signs Temp 97.7 F 12/15/17 16:00 Pulse 74 12/15/17 16:00 Resp 24 12/15/17 16:00 BP 113/67 12/15/17 16:00 Pulse Ox 100 12/15/17 16:00 - Medical History PMH: Anemia Other PMH: cirrhosis Other Surgeries: EXCISION OF ESOPHAGOGASTRIC JUNCTION, ENDO, DIAGN (08/09/17). EXCISION OF STOMACH, ENDO, DIAGN (10/25/17) - [facility] Procedures EXCISION OF ESOPHAGOGASTRIC JUNCTION, ENDO, DIAGN (08/09/17) EXCISION OF STOMACH, ENDO, DIAGN (10/25/17) INSPECTION OF LOWER INTESTINAL TRACT, ENDO (10/25/17) Family History: States: No Known Family Hx - Social History Hx Tobacco Use: Yes (light smoker) Hx Alcohol Use: Yes (last drink 07/2017) Hx Substance Use: No - Immunization History Hx Tetanus Toxoid Vaccination: No Hx Influenza Vaccination: No Hx Pneumococcal Vaccination: No Review Of Systems Except As Marked, All Systems Reviewed And Found Negative. Constitutional: Negative for: Fever, Chills Cardiovascular: Negative for: Chest Pain Neurological: Positive for: Altered Mental Status Physical Exam - Physical Exam Additional Physical Exam Comments: Constitutional: No acute distress. Head: Normocephalic. Atraumatic. Eyes: PERRL. Scleral icterus bilaterally. ENT: Moist mucous membranes. Neck: Supple. Cardiovascular: Regular rate. Radial pulse 2+ bilaterally. Chest: No tenderness. Respiratory: Clear to auscultation bilaterally. GI: Soft. Nontender. Nondistended. Back: No CVA tenderness. Musculoskeletal: No tenderness or swelling of extremities. Skin: No rash. Superficial abrasion to right tibia. Neurologic: Oriented x3. Slow to respond to commands. ED Course And Treatment - Laboratory Results Result Diagrams: 12/15/17 11:20 12/15/17 11:20 O2 Sat by Pulse Oximetry: 100 - Radiology CXR: Interpreted by Me, Viewed By Me CXR Interpretation: Yes: No Acute Disease Progress Note: EKG, blood work, CBC, CXR, and UA ordered. Lactulose administered. Patient admitted and accepted under Dr Lopez, who agrees with plan. Disposition Discussed With .: Pooja Lopez Doctor Will See Patient In The: ED - Disposition Disposition: HOSPITALIZED Disposition Time: 10:57 Condition: FAIR - Clinical Impression Clinical Impression: Hepatic encephalopathy - Scribe Statement The provider has reviewed the documentation as recorded by the Scribe Nighat Grier All medical record entries made by the Scribe were at my direction and personally dictated by me. I have reviewed the chart and agree that the record accurately reflects my personal performance of the history, physical exam, medical decision making, and the department course for this patient. I have also personally directed, reviewed, and agree with the discharge instructions and disposition.
--- NOTE | 2017-12-15 11:14 | RAD ---
HISTORY: Altered mental status. COMPARISON: 10/24/2017 FINDINGS: LUNGS: No active pulmonary disease. PLEURA: No significant pleural effusion identified, no pneumothorax apparent. CARDIOVASCULAR: Normal. OSSEOUS STRUCTURES: No significant abnormalities. Multiple contiguous posterior lateral healed right rib fractures VISUALIZED UPPER ABDOMEN: Normal. OTHER FINDINGS: None. IMPRESSION: No active disease. No significant interval change compared to the prior examination(s).
[2017-12-15 11:26] LABS: HEMOGLOBIN 9.5 g/dL (12.0-18.0); MEAN PLATELET VOLUME 7.3 fL (7.2-11.7); RBC 2.59 Mil/uL (4.40-5.90); RED CELL DISTRIBUTION WIDTH 19.8 % (11.5-14.5)
[2017-12-15 11:32] LABS: MEAN CELL VOLUME 102.6 fL (80.0-94.0); MEAN CORPUSCULAR HEMOGLOBIN 36.8 pg (27.0-31.0); MEAN CORPUSCULAR HGB CONC 35.9 g/dL (33.0-37.0); PLATELET COUNT 107 K/uL (130-400); WHITE BLOOD COUNT 4.1 K/uL (4.8-10.8)
[2017-12-15 11:41] LABS: ALB/GLOB RATIO 0.8 (1.0-2.1); ALBUMIN 3.4 g/dL (3.5-5.0); ALT/SGPT 35 U/L (21-72); AST/SGOT 73 U/L (17-59); BLOOD UREA NITROGEN 17 mg/dL (9-20); CALCIUM 9.5 mg/dl (8.6-10.4); GFR AFRICAN-AMERICAN > 60; GFR NON-AFRICAN AMERICAN > 60
[2017-12-15 12:28] LABS: EOS # 0.4 K/uL (0.0-0.7); LYMPH # 0.9 K/uL (1.0-4.3); MONO # 1.1 K/uL (0.0-0.8); NEUT # 1.7 K/uL (1.8-7.0)
[2017-12-15 12:30] LABS: ANISOCYTOSIS SLIGHT; BASOPHIL 1 % (0-2); EOSINOPHIL 9 % (0-4); HYPOCHROMIC SLIGHT; LYMPHOCYTE 22 % (20-40); MONOCYTE 27 % (0-10); NEUTROPHIL 41 % (50-75); PLATELET ESTIMATE DECREASED (NORMAL); POIKILOCYTOSIS SLIGHT; TOTAL CELLS COUNTED 100
[2017-12-15 12:31] LABS: BURR CELLS SLIGHT; OVALOCYTES SLIGHT; TARGET CELLS SLIGHT
[2017-12-15 12:35] LABS: URINE BILIRUBIN NEGATIVE (NEGATIVE); URINE BLOOD NEGATIVE (NEGATIVE); URINE CLARITY Clear (Clear); URINE COLOR Amber (YELLOW); URINE GLUCOSE (UA) NORMAL (Normal); URINE LEUKOCYTE ESTERASE NEG Leu/uL (Negative); URINE PROTEIN NEGATIVE (NEGATIVE)
--- NOTE | 2017-12-15 19:16 | CP.PCM.HP ---
History of Present Illness - History of Present Illness History of Present Illness: Chief complaints: Altered mental status HPI: 56-year-old male with a history of liver cirrhosis secondary to alcoholism came to the emergency room with Altered mental status. Patient was recently hospitalized with the GI bleed. Patient was doing well until recentlyPatient's sister noticed that he started having increasing confusion, increasing lethargic and weakness for 2 days. As per the sister patient is taking his own medication. But did recently does not clear he is Taking it. He is now comfortable otherwise, answering questions. Somewhat confused. Shaking noted. No chest pain Denies any nausea, vomiting,are diarrhea. No other major active symptoms. Past medical history: Alcoholic liver disease, associated with liver cirrhosis. Surgical history: Patient had upper endoscopy done on 08/11/2015, showing evidence of esophagitis , hiatus hernia, gastropathy, no evidence of varices was noted. Allergies: No known drug allergies Personal history: Patient is a alcoholic, but not drinking now. Used to be a smoker. Family history noncontributory Review of system: He is not in any distress He denies any headache, no visual symptoms. He is somewhat confused, he does not remember where he is On examination: Vital signs reviewed in Blood pressure slightly on the low side Conjunctival injection, jaundiced Regular heart sound Abdomen soft nontender Extremities no pedal edema INTERNAL MEDICINE NURSE alert and awake disoriented to place Labs: labs reviewed Ammonia level elevation noted Assessment/recommendation: 56-year-old male with liver cirrhosis admitted with Hepatic encephalopathy. Liver disease Exacerbation of chronic liver disease Noncompliance most likelyGI evaluation Medications reviewed continue the current treatment. Present on Admission - Present on Admission Any Indicators Present on Admission: No History of DVT/PE: No History of Uncontrolled Diabetes: No Urinary Catheter: No Decubitus Ulcer Present: No Past Patient History - Infectious Disease Hx of Infectious Diseases: C.diff - Past Medical History & Family History Past Medical History?: No - Past Social History Smoking Status: Never Smoked - HEMATOLOGICAL/ONCOLOGICAL Hx Anemia: Yes - MUSCULOSKELETAL/RHEUMATOLOGICAL Hx Falls: Yes - GASTROINTESTINAL Hx Gastrointestinal Disorders: Yes Hx Clostridium Difficile: Yes Hx Liver Failure: Yes (Cirrhosis) - PSYCHIATRIC Hx Substance Use: No - SURGICAL HISTORY Hx Surgeries: No - ANESTHESIA Hx Anesthesia: No Meds Allergies/Adverse Reactions: Allergies Allergy/AdvReac Type Severity Reaction Status Date / Time No Known Allergies Allergy Verified 10/24/17 22:33 Results - Vital Signs Recent Vital Signs: Last Vital Signs Temp 97.7 F 12/15/17 16:00 Pulse 74 12/15/17 16:00 Resp 24 12/15/17 16:00 BP 113/67 12/15/17 16:00 Pulse Ox 100 12/15/17 18:43 - Labs Result Diagrams: 12/15/17 11:20 12/15/17 11:20 Labs: Laboratory Results - last 24 hr 12/15/17 12/15/17 12/15/17 11:20 11:20 11:20 WBC 4.1 L RBC 2.59 L Hgb 9.5 L Hct 26.6 L MCV 102.6 H MCH 36.8 H MCHC 35.9 RDW 19.8 H Plt Count 107 L MPV 7.3 Neut % (Auto) 40.0 L Lymph % (Auto) 23.0 [place] % (Auto) 27.0 H Eos % (Auto) 9.0 H Baso % (Auto) 1.0 Neut # (Auto) 1.7 L Lymph # (Auto) 0.9 L [place] # (Auto) 1.1 H Eos # (Auto) 0.4 Baso # (Auto) 0.0 Neutrophils % (Manual) 41 L Lymphocytes % (Manual) 22 Monocytes % (Manual) 27 H Eosinophils % (Manual) 9 H Basophils % (Manual) 1 Platelet Estimate Decreased L Hypochromasia (manual) Slight Poikilocytosis (manual Slight Anisocytosis (manual) Slight Target Cells Slight Ovalocytes Slight [place] Cells Slight Sodium 141 Potassium 3.6 Chloride 112 H Carbon Dioxide 18 L Anion Gap 14 BUN 17 Creatinine 0.8 Est GFR ( Amer) > 60 Est GFR (Non-Af Amer) > 60 Random Glucose 95 Calcium 9.5 Total Bilirubin 5.0 H AST 73 H ALT 35 Alkaline Phosphatase 125 Ammonia 51 H D Total Protein 7.6 Albumin 3.4 L Globulin 4.2 H Albumin/Globulin Ratio 0.8 L Urine Color Urine Clarity Urine pH Ur Specific [place] Urine Protein Urine Glucose (UA) Urine Ketones Urine Blood Urine Nitrate Urine Bilirubin Urine Urobilinogen Ur Leukocyte Esterase Urine WBC (Auto) Alcohol, Quantitative < 10 12/15/17 12:27 WBC RBC Hgb Hct MCV MCH MCHC RDW Plt Count MPV Neut % (Auto) Lymph % (Auto) [place] % (Auto) Eos % (Auto) Baso % (Auto) Neut # (Auto) Lymph # (Auto) [place] # (Auto) Eos # (Auto) Baso # (Auto) Neutrophils % (Manual) Lymphocytes % (Manual) Monocytes % (Manual) Eosinophils % (Manual) Basophils % (Manual) Platelet Estimate Hypochromasia (manual) Poikilocytosis (manual Anisocytosis (manual) Target Cells Ovalocytes [place] Cells Sodium Potassium Chloride Carbon Dioxide Anion Gap BUN Creatinine Est GFR ( Amer) Est GFR (Non-Af Amer) Random Glucose Calcium Total Bilirubin AST ALT Alkaline Phosphatase Ammonia Total Protein Albumin Globulin Albumin/Globulin Ratio Urine Color [place] Urine Clarity Clear Urine pH 7.0 Ur Specific [place] 1.024 Urine Protein Negative Urine Glucose (UA) Normal Urine Ketones Negative Urine Blood Negative Urine Nitrate Negative Urine Bilirubin Negative Urine Urobilinogen 2.0 Ur Leukocyte Esterase Neg Urine WBC (Auto) 1 Alcohol, Quantitative
[2017-12-15 23:58] VITALS: RESP 20
--- NOTE | 2017-12-16 09:37 | CP.PCM.CON ---
<Kailey Cortés - Last Filed: 12/16/17 09:38> History of Present Illness - History of Present Illness History of Present Illness: GI Fellow PGY4 Consult Note This is a 56yM with pmhx of alcohol abuse, decompensated alcoholic cirrhosis with ascites, HE, and cdiff colitis rectal bleeding who is presenting for AMS. Pt has been admitted to the hospital many times and is currently following up at [facility] for liver transplant evaluation. Pt has not had etoh since 07/2017. He had a EGD in [facility] and September of 2017 with no varices, just portal hypertensive gastropathy and gastric ulcer FCIII that healed, no source of GI bleeding. Pt then developed severe C.diff colitis with rectal bleeding and colonoscopy 10/2017 showed rectal ulcers. Pt reports he has been doing fine and taking all his medications including lactulose with 3 BM daily. However, his sister noticed he became disoriented and confused yesterday. Pt deneis nay fevers, chills, cough, abdominal pain. ROS: A 12pt ROS was negative except as above PmHx: As stated in HPI PsHx: Denies SHx: Etoh abuse, denies tobacco or drugs FHx: Denies colon ca Past Patient History - Infectious Disease Hx of Infectious Diseases: C.diff - Past Medical History & Family History Past Medical History?: No - Past Social History Smoking Status: Never Smoked - HEMATOLOGICAL/ONCOLOGICAL Hx Anemia: Yes - MUSCULOSKELETAL/RHEUMATOLOGICAL Hx Falls: Yes - GASTROINTESTINAL Hx Gastrointestinal Disorders: Yes Hx Clostridium Difficile: Yes Hx Liver Failure: Yes (Cirrhosis) - PSYCHIATRIC Hx Substance Use: No - SURGICAL HISTORY Hx Surgeries: No - ANESTHESIA Hx Anesthesia: No Meds Allergies/Adverse Reactions: Allergies Allergy/AdvReac Type Severity Reaction Status Date / Time No Known Allergies Allergy Verified 10/24/17 22:33 - Medications Medications: Current Medications Furosemide (Lasix) 40 mg PO DAILY [facility] Lactulose (Enulose) 20 gm PO Q8 [facility] Last Admin: 12/16/17 05:28 Dose: 20 gm Pantoprazole Sodium (Protonix Ec Tab) 40 mg PO DAILY [facility] Rifaximin (Xifaxan) 550 mg PO BID [facility] PRN Reason: Protocol Last Admin: 12/15/17 17:21 Dose: 550 mg Spironolactone (Aldactone) 100 mg PO DAILY [facility] Thiamine HCl (Vitamin B1 Tab) 100 mg PO DAILY [facility] Physical Exam - Constitutional Appears: Non-toxic, No Acute Distress - Head Exam Head Exam: ATRAUMATIC, NORMAL INSPECTION, NORMOCEPHALIC - Eye Exam Eye Exam: EOMI, PERRL, Scleral icterus - ENT Exam ENT Exam: Mucous Membranes Moist - Neck Exam Neck exam: Positive for: Normal Inspection - Respiratory Exam Respiratory Exam: Clear to Auscultation Bilateral, NORMAL BREATHING PATTERN - Cardiovascular Exam Cardiovascular Exam: RRR, +S1, +S2 - GI/Abdominal Exam GI & Abdominal Exam: Normal Bowel Sounds, Soft. absent: Distended, Organomegaly , Tenderness - Rectal Exam Rectal Exam: Deferred - Extremities Exam Extremities exam: Positive for: full ROM, normal inspection - Back Exam Back exam: NORMAL INSPECTION - Neurological Exam Neurological exam: Alert, Oriented x3 - Psychiatric Exam Psychiatric exam: Normal Affect, Normal Mood - Skin Skin Exam: Dry, Intact, Normal Color, Warm Results - Vital Signs Recent Vital Signs: Last Vital Signs Temp 98.2 F 12/16/17 08:00 Pulse 76 12/16/17 08:00 Resp 20 12/16/17 08:00 BP 110/68 12/16/17 08:00 Pulse Ox 100 12/16/17 08:00 - Labs Result Diagrams: 12/15/17 11:20 12/15/17 11:20 Labs: Laboratory Results - last 24 hr 12/15/17 12/15/17 12/15/17 11:20 11:20 11:20 WBC 4.1 L RBC 2.59 L Hgb 9.5 L Hct 26.6 L MCV 102.6 H MCH 36.8 H MCHC 35.9 RDW 19.8 H Plt Count 107 L MPV 7.3 Neut % (Auto) 40.0 L Lymph % (Auto) 23.0 [place] % (Auto) 27.0 H Eos % (Auto) 9.0 H Baso % (Auto) 1.0 Neut # (Auto) 1.7 L Lymph # (Auto) 0.9 L [place] # (Auto) 1.1 H Eos # (Auto) 0.4 Baso # (Auto) 0.0 Neutrophils % (Manual) 41 L Lymphocytes % (Manual) 22 Monocytes % (Manual) 27 H Eosinophils % (Manual) 9 H Basophils % (Manual) 1 Platelet Estimate Decreased L Hypochromasia (manual) Slight Poikilocytosis (manual Slight Anisocytosis (manual) Slight Target Cells Slight Ovalocytes Slight [place] Cells Slight Sodium 141 Potassium 3.6 Chloride 112 H Carbon Dioxide 18 L Anion Gap 14 BUN 17 Creatinine 0.8 Est GFR ( Amer) > 60 Est GFR (Non-Af Amer) > 60 Random Glucose 95 Calcium 9.5 Total Bilirubin 5.0 H AST 73 H ALT 35 Alkaline Phosphatase 125 Ammonia 51 H D Total Protein 7.6 Albumin 3.4 L Globulin 4.2 H Albumin/Globulin Ratio 0.8 L Urine Color Urine Clarity Urine pH Ur Specific [place] Urine Protein Urine Glucose (UA) Urine Ketones Urine Blood Urine Nitrate Urine Bilirubin Urine Urobilinogen Ur Leukocyte Esterase Urine WBC (Auto) Alcohol, Quantitative < 10 12/15/17 12:27 WBC RBC Hgb Hct MCV MCH MCHC RDW Plt Count MPV Neut % (Auto) Lymph % (Auto) [place] % (Auto) Eos % (Auto) Baso % (Auto) Neut # (Auto) Lymph # (Auto) [place] # (Auto) Eos # (Auto) Baso # (Auto) Neutrophils % (Manual) Lymphocytes % (Manual) Monocytes % (Manual) Eosinophils % (Manual) Basophils % (Manual) Platelet Estimate Hypochromasia (manual) Poikilocytosis (manual Anisocytosis (manual) Target Cells Ovalocytes [place] Cells Sodium Potassium Chloride Carbon Dioxide Anion Gap BUN Creatinine Est GFR ( Amer) Est GFR (Non-Af Amer) Random Glucose Calcium Total Bilirubin AST ALT Alkaline Phosphatase Ammonia Total Protein Albumin Globulin Albumin/Globulin Ratio Urine Color [place] Urine Clarity Clear Urine pH 7.0 Ur Specific [place] 1.024 Urine Protein Negative Urine Glucose (UA) Normal Urine Ketones Negative Urine Blood Negative Urine Nitrate Negative Urine Bilirubin Negative Urine Urobilinogen 2.0 Ur Leukocyte Esterase Neg Urine WBC (Auto) 1 Alcohol, Quantitative Assessment & Plan - Assessment and Plan (Free Text) Assessment: Silvestre is a 56yM with pmhx of alcohol abuse, decompensated alcoholic cirrhosis with ascites, HE, and cdiff colitis rectal bleeding who is presenting for AMS. 1. Hepatic encephalopathy Grade 1 2. Decompensated alcoholic liver cirrhosis MELD today 3. Hx of etoh abuse 4. Hx of anemia 5. Hx of Cdiff colitis Plan: -Continue supportive care -Pt with grade 1 HE -Continue lactulose tid for 3 BM daily -Start Rifaxamin 550mg bid for HE -Continue lasix 40mg daily and spironolacte 100mg daily -Monitor Cr and electrolytes -Will need to r/o any underlying infection to provoke HE, CXR neg, UA neg, will order blood cx -Will order abd us to r/o ascites and possible SBP -Will continue to follow closely <Joseph Smart - Last Filed: 12/16/17 14:31> Meds - Medications Medications: Current Medications Furosemide (Lasix) 40 mg PO DAILY [facility] Last Admin: 12/16/17 10:09 Dose: 40 mg Lactulose (Enulose) 20 gm PO Q8 [facility] Last Admin: 12/16/17 13:20 Dose: 20 gm Pantoprazole Sodium (Protonix Ec Tab) 40 mg PO DAILY [facility] Last Admin: 12/16/17 10:10 Dose: 40 mg Rifaximin (Xifaxan) 550 mg PO BID [facility] PRN Reason: Protocol Last Admin: 12/16/17 10:10 Dose: 550 mg Spironolactone (Aldactone) 100 mg PO DAILY [facility] Last Admin: 12/16/17 10:10 Dose: 100 mg Thiamine HCl (Vitamin B1 Tab) 100 mg PO DAILY [facility] Last Admin: 12/16/17 10:09 Dose: 100 mg Results - Vital Signs Recent Vital Signs: Last Vital Signs Temp 98.2 F 12/16/17 08:00 Pulse 76 12/16/17 08:00 Resp 20 12/16/17 08:00 BP 110/68 12/16/17 10:09 Pulse Ox 100 12/16/17 08:00 - Labs Result Diagrams: 12/16/17 10:59 12/16/17 10:59 Labs: Laboratory Results - last 24 hr 12/16/17 12/16/17 12/16/17 10:59 10:59 10:59 WBC 4.5 L RBC 2.52 L Hgb 9.0 L Hct 26.0 L MCV 103.4 H MCH 35.8 H MCHC 34.6 RDW 19.8 H Plt Count 90 L MPV 7.4 PT 18.3 H INR 1.7 Sodium 140 Potassium 3.8 Chloride 111 H Carbon Dioxide 19 L Anion Gap 14 BUN 14 Creatinine 0.7 L Est GFR ( Amer) > 60 Est GFR (Non-Af Amer) > 60 Random Glucose 118 H Calcium 9.0 Total Bilirubin 4.4 H AST 62 H ALT 31 Alkaline Phosphatase 104 Total Protein 7.1 Albumin 3.0 L Globulin 4.0 H Albumin/Globulin Ratio 0.8 L Attending/Attestation - Attestation I have personally seen and examined this patient.: Yes I have fully participated in the care of the patient.: Yes I have reviewed all pertinent clinical information: Yes Notes (Text): 12/16/17 14:27 I have seen and examined patient with GI fellow. Agree with above documentation with the following additions. In brief, this is a 56 year old male with history of decompensated ETOH cirrhosis (sober since July 2017) who presents to hospital with complaint of mental status change. He admits to recent slurred speech but is currently alert and oriented x 3. He claims that he has been taking his medication appropriately and having bowel movements three times daily with lactulose. He denies abdominal pain, nausea, vomiting, fever/chills, weight loss, rectal bleeding. He follows at [facility] liver clinic, had an appointment yesterday which he missed due to confused state. Review of vitals from today are normal. Decompensated ETOH cirrhosis - awaiting INR for MELD calculation AMS, HE grade I - Low sodium diet as tolerated - Continue with xifaxan and lactulose therapy for HE prevention - Continue with diuretic therapy, monitor electrolytes - No ascites appreciated on exam today, however will order repeat US to rule out ascites - H/H and LFTs stable, continue to monitor - Obtain blood culture - Will continue to monitor patient clinical course
[2017-12-16] MEDS: Pantoprazole 40 mg EC Tab PO SCH (10:10)
[2017-12-16 11:05] LABS: MEAN CELL VOLUME 103.4 fL (80.0-94.0); MEAN CORPUSCULAR HEMOGLOBIN 35.8 pg (27.0-31.0); MEAN CORPUSCULAR HGB CONC 34.6 g/dL (33.0-37.0); MEAN PLATELET VOLUME 7.4 fL (7.2-11.7); RBC 2.52 Mil/uL (4.40-5.90); RED CELL DISTRIBUTION WIDTH 19.8 % (11.5-14.5); WHITE BLOOD COUNT 4.5 K/uL (4.8-10.8)
[2017-12-16 11:20] LABS: BLOOD UREA NITROGEN 14 mg/dL (9-20); GFR AFRICAN-AMERICAN > 60; GFR NON-AFRICAN AMERICAN > 60
[2017-12-16 11:21] LABS: ALB/GLOB RATIO 0.8 (1.0-2.1); ALT/SGPT 31 U/L (21-72); AST/SGOT 62 U/L (17-59); INR 1.7; PROTHROMBIN TIME 18.3 SECONDS (9.7-12.2)
--- NOTE | 2017-12-16 15:37 | US ---
HISTORY: r/o ascites COMPARISON: 10/24/2017 CT abdomen and pelvis TECHNIQUE: Sonographic evaluation of the abdomen. FINDINGS: LIVER: Measures 16.0 cm. Increased echogenicity of the liver parenchyma. Findings consistent with hepatocellular disease, fatty infiltration. Irregular contour to the liver consistent with cirrhosis. Hepatofugal blood flow identified. No mass. No intrahepatic bile duct dilatation. GALLBLADDER: Cholelithiasis with gallbladder wall thickening. No elicited sonographic Lee's sign. COMMON BILE DUCT: Measures 5.9 mm. No stones. No dilatation. PANCREAS: Unremarkable as visualized. No mass. No ductal dilatation. RIGHT KIDNEY: Measures 4.9 x 11.6cm. Normal echogenicity. No calculus, mass, or hydronephrosis. LEFT KIDNEY: Measures 6 x 12.5cm. Normal echogenicity. No calculus, mass, or hydronephrosis. SPLEEN: Normal in size and contour. No mass. AORTA: No aneurysmal dilatation. IVC: Unremarkable. OTHER FINDINGS: None. IMPRESSION: Low volume intra-abdominal ascites. Cirrhotic liver/ findings consist with portal hypertension with hepatofugal blood flow in the portal system. Cholelithiasis, gallbladder wall thickness accentuated by collapsed gallbladder.
--- NOTE | 2017-12-16 21:57 | CP.PCM.PN ---
Subjective - Date & Time of Evaluation Date of Evaluation: 12/16/17 Time of Evaluation: 21:56 - Subjective Subjective: Patient today feeling much better. He is awake and responding. He is following commands. And he is oriented well. On examination: Vital signs stable. Regular heart sound. Nontender abdomen. Assessment and recommendation: 56-year-old male admitted to the hospital with liver disease, now having hepatic encephalopathy. Alcoholic related liver disease. Improving. We will continue the current treatment. Possible discharge plan tomorrow Objective - Vital Signs/Intake and Output Vital Signs (last 24 hours): Temp Pulse Resp BP Pulse Ox 97.2 F L 84 20 109/71 100 12/16/17 15:50 12/16/17 15:50 12/16/17 15:50 12/16/17 15:50 12/16/17 15:50 Intake and Output: 12/16/17 12/17/17 18:59 06:59 Intake Total 200 Balance 200 - Medications Medications: Current Medications Furosemide (Lasix) 40 mg PO DAILY [facility] Last Admin: 12/16/17 10:09 Dose: 40 mg Lactulose (Enulose) 20 gm PO Q8 [facility] Last Admin: 12/16/17 21:10 Dose: 20 gm Pantoprazole Sodium (Protonix Ec Tab) 40 mg PO DAILY [facility] Last Admin: 12/16/17 10:10 Dose: 40 mg Spironolactone (Aldactone) 100 mg PO DAILY [facility] Last Admin: 12/16/17 10:10 Dose: 100 mg Thiamine HCl (Vitamin B1 Tab) 100 mg PO DAILY [facility] Last Admin: 12/16/17 10:09 Dose: 100 mg - Labs Labs: 12/16/17 10:59 12/16/17 10:59 PT 18.3 SECONDS (9.7-12.2) H 12/16/17 10:59 INR 1.7 12/16/17 10:59
[2017-12-17 07:45] VITALS: BP 107/69; PULSE 71; TEMP 97.9; O2SAT 98
[2017-12-17 08:12] LABS: INR 1.7; PROTHROMBIN TIME 18.2 SECONDS (9.7-12.2)
[2017-12-17 08:33] LABS: BASO % 0.4 % (0.0-2.0); EOS # 0.5 K/uL (0.0-0.7); EOS % 7.8 % (0.0-4.0); LYMPH % 35.1 % (20.0-40.0); MEAN CELL VOLUME 104.8 fL (80.0-94.0); MEAN CORPUSCULAR HEMOGLOBIN 36.4 pg (27.0-31.0); MEAN CORPUSCULAR HGB CONC 34.7 g/dL (33.0-37.0); MEAN PLATELET VOLUME 7.8 fL (7.2-11.7); MONO # 0.7 K/uL (0.0-0.8); MONO % 11.7 % (0.0-10.0); NEUT # 2.6 K/uL (1.8-7.0); RBC 3.03 Mil/uL (4.40-5.90); RED CELL DISTRIBUTION WIDTH 19.4 % (11.5-14.5); WHITE BLOOD COUNT 5.8 K/uL (4.8-10.8)
[2017-12-17 08:39] LABS: HEMOGLOBIN 11.1 g/dL (12.0-18.0)
[2017-12-17 08:53] LABS: ALB/GLOB RATIO 0.8 (1.0-2.1); ALBUMIN 3.8 g/dL (3.5-5.0); ALT/SGPT 30 U/L (21-72); AST/SGOT 96 U/L (17-59); BLOOD UREA NITROGEN 14 mg/dL (9-20); CALCIUM 9.7 mg/dl (8.6-10.4); GFR AFRICAN-AMERICAN > 60; GFR NON-AFRICAN AMERICAN > 60
[2017-12-17] MEDS: Pantoprazole 40 mg EC Tab PO SCH (09:38)
--- NOTE | 2017-12-17 12:17 | CP.PCM.PN ---
<Kailey Cortés - Last Filed: 12/17/17 12:14> Subjective - Date & Time of Evaluation Date of Evaluation: 12/17/17 Time of Evaluation: 10:30 - Subjective Subjective: GI Fellow PGY4 Progress Note Pt seen and evaluated at bedside, pt doing well with no abdominal pain, N/V. No confusion or GI bleeding. AAOx3. +BM ROS: A 12pt ROS was negative except as above. Objective - Vital Signs/Intake and Output Vital Signs (last 24 hours): Temp Pulse Resp BP Pulse Ox 97.9 F 71 20 107/69 98 12/17/17 07:42 12/17/17 07:42 12/17/17 07:42 12/17/17 09:38 12/17/17 07:42 - Medications Medications: Current Medications Furosemide (Lasix) 40 mg PO DAILY [facility] Last Admin: 12/17/17 09:38 Dose: 40 mg Lactulose (Enulose) 20 gm PO Q8 [facility] Last Admin: 12/17/17 05:35 Dose: 20 gm Pantoprazole Sodium (Protonix Ec Tab) 40 mg PO DAILY [facility] Last Admin: 12/17/17 09:38 Dose: 40 mg Rifaximin (Xifaxan) 550 mg PO BID [facility] PRN Reason: Protocol Last Admin: 12/17/17 11:43 Dose: 550 mg Spironolactone (Aldactone) 100 mg PO DAILY [facility] Last Admin: 12/17/17 09:37 Dose: 100 mg Thiamine HCl (Vitamin B1 Tab) 100 mg PO DAILY [facility] Last Admin: 12/17/17 09:38 Dose: 100 mg - Labs Labs: 12/17/17 08:00 12/17/17 08:22 PT 18.2 SECONDS (9.7-12.2) H 12/17/17 08:00 INR 1.7 12/17/17 08:00 - Constitutional Appears: Non-toxic, No Acute Distress - Head Exam Head Exam: ATRAUMATIC, NORMAL INSPECTION, NORMOCEPHALIC - Eye Exam Eye Exam: EOMI, PERRL, Scleral icterus Pupil Exam: PERRL - ENT Exam ENT Exam: Mucous Membranes Moist, Normal Exam - Neck Exam Neck Exam: Full ROM, Normal Inspection - Respiratory Exam Respiratory Exam: Clear to Ausculation Bilateral, NORMAL BREATHING PATTERN - Cardiovascular Exam Cardiovascular Exam: REGULAR RHYTHM, RRR, +S1, +S2 - GI/Abdominal Exam GI & Abdominal Exam: Soft, Normal Bowel Sounds. absent: Distended, Tenderness, Organomegaly - Rectal Exam Rectal Exam: Deferred - Extremities Exam Extremities Exam: Full ROM, Normal Inspection - Back Exam Back Exam: NORMAL INSPECTION - Neurological Exam Neurological Exam: Alert, Awake, Oriented x3 - Psychiatric Exam Psychiatric exam: Normal Affect, Normal Mood - Skin Skin Exam: Dry, Intact, Normal Color, Warm Assessment and Plan - Assessment and Plan (Free Text) Assessment: Silvestre is a 56yM with pmhx of alcohol abuse, decompensated alcoholic cirrhosis with ascites, HE, and cdiff colitis rectal bleeding who is presenting for AMS. 1. Hepatic encephalopathy Grade 1-improved 2. Decompensated alcoholic liver cirrhosis MELD today 18 3. Hx of etoh abuse 4. Hx of anemia 5. Hx of Cdiff colitis Plan: -Continue supportive care -Pt with grade 1 HE that has improved -Continue lactulose tid for 3 BM daily -Continue Rifaxamin 550mg bid for HE -Continue lasix 40mg daily and spironolacte 100mg daily -Monitor Cr and electrolytes -No underlying infection to provoke HE, CXR neg, UA neg, blood cx neg -Abd with no ascites -Pt okay for discharge home and followup at [facility] <Jamar Salmeron - Last Filed: 12/17/17 13:05> Objective - Vital Signs/Intake and Output Vital Signs (last 24 hours): Temp Pulse Resp BP Pulse Ox 97.9 F 71 20 107/69 98 12/17/17 07:42 12/17/17 07:42 12/17/17 07:42 12/17/17 09:38 12/17/17 07:42 - Medications Medications: Current Medications Furosemide (Lasix) 40 mg PO DAILY [facility] Last Admin: 12/17/17 09:38 Dose: 40 mg Lactulose (Enulose) 20 gm PO Q8 [facility] Last Admin: 12/17/17 05:35 Dose: 20 gm Pantoprazole Sodium (Protonix Ec Tab) 40 mg PO DAILY [facility] Last Admin: 12/17/17 09:38 Dose: 40 mg Rifaximin (Xifaxan) 550 mg PO BID [facility] PRN Reason: Protocol Last Admin: 12/17/17 11:43 Dose: 550 mg Spironolactone (Aldactone) 100 mg PO DAILY [facility] Last Admin: 12/17/17 09:37 Dose: 100 mg Thiamine HCl (Vitamin B1 Tab) 100 mg PO DAILY [facility] Last Admin: 12/17/17 09:38 Dose: 100 mg - Labs Labs: 12/17/17 08:00 12/17/17 08:22 PT 18.2 SECONDS (9.7-12.2) H 12/17/17 08:00 INR 1.7 12/17/17 08:00 Attending/Attestation - Attestation I have personally seen and examined this patient.: Yes I have fully participated in the care of the patient.: Yes I have reviewed all pertinent clinical information, including history, physical exam and plan: Yes Notes (Text): 12/17/17 13:04 57 year old male with h/o etoh cirrhosis a/w encephalopathy. Continue lactulose/ rifaxamin. Ok for discharge. Pamal at [facility] for transplant as outpatient this week.
--- NOTE | 2017-12-17 14:16 | CP.PCM.PN ---
Subjective - Date & Time of Evaluation Date of Evaluation: 12/17/17 Time of Evaluation: 14:15 - Subjective Subjective: -FOLLOW UP WITH DR. MARTINO IN THE OFFICE WITHIN 1 WEEK---CALL THE OFFICE FOR AN APPOINTMENT. -FOLLOW UP WITH DR. AGUILAR/BILL IN THEIR OFFICE WITHIN 2 WEEKS---CALL THE OFFICE FOR AN APPOINTMENT. -PLEASE BE SURE TO FOLLOW UP WITH [facility] FOR LIVER TRANSPLANT EVALUATION WITHIN 1 WEEK. -TAKE ALL MEDICATIONS PRESCRIBED. PLEASE NOTE THE CHANGE IN YOUR FUROSEMIDE (LASIX)---YOU WILL NOW TAKE 40 MG BY MOUTH ONCE A DAY. DO NOT TAKE YOUR 20 MG TABLETS ANYMORE. -IF YOU HAVE ANY FURTHER QUESTIONS OR CONCERNS, CONTACT DR. MARTINO. Objective - Vital Signs/Intake and Output Vital Signs (last 24 hours): Temp Pulse Resp BP Pulse Ox 97.9 F 71 20 107/69 98 12/17/17 07:42 12/17/17 07:42 12/17/17 07:42 12/17/17 09:38 12/17/17 07:42 - Medications Medications: Current Medications Furosemide (Lasix) 40 mg PO DAILY [facility] Last Admin: 12/17/17 09:38 Dose: 40 mg Lactulose (Enulose) 20 gm PO Q8 [facility] Last Admin: 12/17/17 13:23 Dose: 20 gm Pantoprazole Sodium (Protonix Ec Tab) 40 mg PO DAILY [facility] Last Admin: 12/17/17 09:38 Dose: 40 mg Rifaximin (Xifaxan) 550 mg PO BID [facility] PRN Reason: Protocol Last Admin: 12/17/17 11:43 Dose: 550 mg Spironolactone (Aldactone) 100 mg PO DAILY [facility] Last Admin: 12/17/17 09:37 Dose: 100 mg Thiamine HCl (Vitamin B1 Tab) 100 mg PO DAILY [facility] Last Admin: 12/17/17 09:38 Dose: 100 mg - Labs Labs: 12/17/17 08:00 12/17/17 08:22 PT 18.2 SECONDS (9.7-12.2) H 12/17/17 08:00 INR 1.7 12/17/17 08:00
--- NOTE | 2017-12-17 22:38 | CP.PCM.DIS ---
Provider - Provider Date of Admission: 12/15/17 10:57 Attending physician: Pooja Martino MD Time Spent in preparation of Discharge (in minutes): 45 Hospital Course - Lab Results Lab Results: Micro Results 12/16/17 11:30 Blood Blood Culture - Preliminary NO GROWTH AFTER 24 HOURS 12/16/17 10:40 Blood Blood Culture - Preliminary NO GROWTH AFTER 24 HOURS Most Recent Lab Values WBC 5.8 K/uL (4.8-10.8) 12/17/17 08:00 RBC 3.03 Mil/uL (4.40-5.90) L 12/17/17 08:00 Hgb 11.1 g/dL (12.0-18.0) L D 12/17/17 08:00 Hct 31.8 % (35.0-51.0) L 12/17/17 08:00 MCV 104.8 fL (80.0-94.0) H 12/17/17 08:00 MCH 36.4 pg (27.0-31.0) H 12/17/17 08:00 MCHC 34.7 g/dL (33.0-37.0) 12/17/17 08:00 RDW 19.4 % (11.5-14.5) H 12/17/17 08:00 Plt Count 121 K/uL (130-400) L D 12/17/17 08:00 MPV 7.8 fL (7.2-11.7) 12/17/17 08:00 Neut % (Auto) 45.0 % (50.0-75.0) L 12/17/17 08:00 Lymph % (Auto) 35.1 % (20.0-40.0) 12/17/17 08:00 [place] % (Auto) 11.7 % (0.0-10.0) H 12/17/17 08:00 Eos % (Auto) 7.8 % (0.0-4.0) H 12/17/17 08:00 Baso % (Auto) 0.4 % (0.0-2.0) 12/17/17 08:00 Neut # (Auto) 2.6 K/uL (1.8-7.0) 12/17/17 08:00 Lymph # (Auto) 2.0 K/uL (1.0-4.3) 12/17/17 08:00 Hardeman # (Auto) 0.7 K/uL (0.0-0.8) 12/17/17 08:00 Eos # (Auto) 0.5 K/uL (0.0-0.7) 12/17/17 08:00 Baso # (Auto) 0.0 K/uL (0.0-0.2) 12/17/17 08:00 Neutrophils % (Manual) 41 % (50-75) L 12/15/17 11:20 Lymphocytes % (Manual) 22 % (20-40) 12/15/17 11:20 Monocytes % (Manual) 27 % (0-10) H 12/15/17 11:20 Eosinophils % (Manual) 9 % (0-4) H 12/15/17 11:20 Basophils % (Manual) 1 % (0-2) 12/15/17 11:20 Platelet Estimate Decreased (NORMAL) L 12/15/17 11:20 Hypochromasia (manual) Slight 12/15/17 11:20 Poikilocytosis (manual Slight 12/15/17 11:20 Anisocytosis (manual) Slight 12/15/17 11:20 Target Cells Slight 12/15/17 11:20 Ovalocytes Slight 12/15/17 11:20 [place] Cells Slight 12/15/17 11:20 PT 18.2 SECONDS (9.7-12.2) H 12/17/17 08:00 INR 1.7 12/17/17 08:00 Sodium 138 mmol/L (132-148) 12/17/17 08:22 Potassium 3.6 mmol/L (3.6-5.2) 12/17/17 08:22 Chloride 106 mmol/L (98-107) 12/17/17 08:22 Carbon Dioxide 21 mmol/L (22-30) L 12/17/17 08:22 Anion Gap 14 (10-20) 12/17/17 08:22 BUN 14 mg/dL (9-20) 12/17/17 08:22 Creatinine 0.8 mg/dL (0.8-1.5) 12/17/17 08:22 Est GFR ( Amer) > 60 12/17/17 08:22 Est GFR (Non-Af Amer) > 60 12/17/17 08:22 Random Glucose 92 mg/dL (75-110) 12/17/17 08:22 Calcium 9.7 mg/dl (8.6-10.4) 12/17/17 08:22 Magnesium 1.8 mg/dL (1.6-2.3) 12/17/17 08:22 Total Bilirubin 4.9 mg/dL (0.2-1.3) H 12/17/17 08:22 AST 96 U/L (17-59) H D 12/17/17 08:22 ALT 30 U/L (21-72) 12/17/17 08:22 Alkaline Phosphatase 133 U/L (38-126) H D 12/17/17 08:22 Ammonia 51 umol/L (9-33) H D 12/15/17 11:20 Total Protein 8.6 g/dL (6.3-8.3) H 12/17/17 08:22 Albumin 3.8 g/dL (3.5-5.0) 12/17/17 08: Globulin 4.8 gm/dL (2.2-3.9) H 12/17/17 08:22 Albumin/Globulin Ratio 0.8 (1.0-2.1) L 12/17/17 08:22 Urine Color Yanelis (YELLOW) 12/15/17 12: Urine Clarity Clear (Clear) 12/15/17 12: Urine pH 7.0 (5.0-8.0) 12/15/17 12:27 Ur Specific [place] 1.024 (1.003-1.030) 12/15/17 12:27 Urine Protein Negative mg/dL (NEGATIVE) 12/15/17 12:27 Urine Glucose (UA) Normal mg/dL (Normal) 12/15/17 12:27 Urine Ketones Negative mg/dL (NEGATIVE) 12/15/17 12: Urine Blood Negative (NEGATIVE) 12/15/17 12: Urine Nitrate Negative (NEGATIVE) 12/15/17 12: Urine Bilirubin Negative (NEGATIVE) 12/15/17 12: Urine Urobilinogen 2.0 mg/dL (0.2-1.0) 12/15/17 12:27 Ur Leukocyte Esterase Neg Quynh/uL (Negative) 12/15/17 12:27 Urine WBC (Auto) 1 /hpf (0-5) 12/15/17 12:27 Alcohol, Quantitative < 10 mg/dl (0-10) 12/15/17 11:20 - Hospital Course Hospital Course: Chief complaints: Altered mental status HPI: 56-year-old male with a history of liver cirrhosis secondary to alcoholism came to the emergency room with Altered mental status. Patient was recently hospitalized with the GI bleed. Patient was doing well until recentlyPatient's sister noticed that he started having increasing confusion, increasing lethargic and weakness for 2 days. As per the sister patient is taking his own medication. But did recently does not clear he is Taking it. He is now comfortable otherwise, answering questions. Somewhat confused. Shaking noted. No chest pain Denies any nausea, vomiting,are diarrhea. No other major active symptoms. Past medical history: Alcoholic liver disease, associated with liver cirrhosis. Surgical history: Patient had upper endoscopy done on 08/11/2015, showing evidence of esophagitis , hiatus hernia, gastropathy, no evidence of varices was noted. Allergies: No known drug allergies Personal history: Patient is a alcoholic, but not drinking now. Used to be a smoker. Family history noncontributory Review of system: He is not in any distress He denies any headache, no visual symptoms. He is somewhat confused, he does not remember where he is On examination: Vital signs reviewed in Blood pressure slightly on the low side Conjunctival injection, jaundiced Regular heart sound Abdomen soft nontender Extremities no pedal edema MAINTENANCE ANALYST alert and awake disoriented to place Labs: labs reviewed Ammonia level elevation noted Assessment/recommendation: 56-year-old male with liver cirrhosis admitted with Hepatic encephalopathy. Liver disease Exacerbation of chronic liver disease Noncompliance most likelyGI evaluation Medications reviewed continue the current treatment. Course in the Hospital: Patient started on lactulose continuously. Patient started having good bowel movements. Patient denies any other major systemic symptoms. Seen by business services associate. Clinical stable. Patient is getting more awake and alert. He will be discharged home today. He will follow up as an outpatient. He will need to follow up with transplant unit at [facility] for further management. Final diagnoses: Hepatic encephalopathy. Chronic alcoholic liver disease. Anemia. GI bleed. Discharge Exam - Head Exam Head Exam: ATRAUMATIC, NORMAL INSPECTION, NORMOCEPHALIC Discharge Plan - Discharge Medications Prescriptions: Spironolactone [Aldactone] 100 mg PO DAILY #120 tab Lactulose [Enulose] 20 gm PO Q8 #3000 ml Furosemide [Lasix] 40 mg PO DAILY #30 tab Pantoprazole Sodium [Protonix] 40 mg PO DAILY #30 ect Thiamine Mononitrate [Vitamin B-1] 100 mg PO DAILY #30 tablet rifAXIMin [Xifaxan] 550 mg PO BID #60 tab - Follow Up Plan Condition: FAIR Disposition: HOME/ ROUTINE Instructions: Hepatic Encephalopathy (DC) Additional Instructions: -FOLLOW UP WITH DR. MARTINO IN THE OFFICE WITHIN 1 WEEK---CALL THE OFFICE FOR AN APPOINTMENT. -FOLLOW UP WITH DR. AGUILAR/BILL IN THEIR OFFICE WITHIN 2 WEEKS---CALL THE OFFICE FOR AN APPOINTMENT. -PLEASE BE SURE TO FOLLOW UP WITH [facility] FOR LIVER TRANSPLANT EVALUATION WITHIN 1 WEEK. -TAKE ALL MEDICATIONS PRESCRIBED. PLEASE NOTE THE CHANGE IN YOUR FUROSEMIDE (LASIX)---YOU WILL NOW TAKE 40 MG BY MOUTH ONCE A DAY. DO NOT TAKE YOUR 20 MG TABLETS ANYMORE. -IF YOU HAVE ANY FURTHER QUESTIONS OR CONCERNS, CONTACT DR. MARTINO. Referrals: Joseph Smart MD [Staff Provider] - Pooja Martino MD [Staff Provider] - Jamar Aguilar MD [Staff Provider] -
--- NOTE | 2017-12-18 05:56 | CARD ---
APPROVED REPORT EKG Measurement Heart [id number] <Conclusion> Normal sinus rhythm Left anterior fascicular block Prolonged QT Abnormal ECG
== END 2017-12-17 14:49 | disposition home or self-care (01) | DRG 205 ==
LOC: C.ER 10:00 → C.9E 10:57 → C.3T 11:56
PROVIDERS: ADMIT Internal Medicine; ATTEND Internal Medicine
DX: K72.90 Hepatic failure, unspecified without coma (principal); K70.31 Alcoholic cirrhosis of liver with ascites; F10.20 Alcohol dependence, uncomplicated; D64.9 Anemia, unspecified; F17.210 Nicotine dependence, cigarettes, uncomplicated; K62.6 Ulcer of anus and rectum; Z91.14 Patient's other noncompliance with medication regimen

== ENCOUNTER 2018-06-03 06:33 | Day surgery (SDC) | payer MEDICAID ==
[2018-06-03 07:03] VITALS: BMI 26.4
[2018-06-03 07:28] VITALS: TEMP 97.7; O2SAT 100
[2018-06-03] MEDS ORDERED: Lactated Ringer's 1,000 ML IV ONE (08:00)
[2018-06-03] MEDS ORDERED: Propofol 10 mg/ml Inj (20 ML) ONE ×2 (09:54→10:11)
[2018-06-03] MEDS ORDERED: Lidocaine Hydrochloride 5 ML INJ ONE (09:54)
[2018-06-03 13:47] VITALS: BP 118/68; PULSE 76; RESP 13
== END 2018-06-03 12:45 | disposition home or self-care (01) ==
LOC: C.ENDO 06:33
PROVIDERS: ATTEND Internal Medicine Gastroenterology
DX: K57.30 Diverticulosis of large intestine without perforation or abscess without bleeding (principal); Z12.11 Encounter for screening for malignant neoplasm of colon; K64.8 Other hemorrhoids
CPT/HCPCS: 45378; J2704; J3010; J7120

== ENCOUNTER 2018-08-17 09:26 | Outpatient (CLI) | payer MEDICAID | END 2018-08-17 09:27 | disposition home or self-care (01) | LOC: C.LAB 09:26 | DX: K70.31 Alcoholic cirrhosis of liver with ascites (principal); Z76.82 Awaiting organ transplant status ==